=== PATIENT | male | born 1930 | race Caucasian/White ===

== ENCOUNTER 2016-09-27 08:45 | Emergency (ER) | payer MEDICARE, OTHER ==
[~2016-09-27] VITALS: Ht 182.9 cm; Wt 93.2 kg
[2016-09-27] VITALS (8 sets, daily range): BP systolic 113–185; BP diastolic 65–87; PULSE 70–105; RESP 12–20; O2SAT 94–100
[~2016-09-27 08:45] MED LIST: ASPI-973 PO; Acetaminophen PO; CRES20T PO; DILT120T10 PO; EZET10TA PO; LEVO175T5 PO; LISI40TA PO; LOV100 SUBQ; METO100T3 PO; OXYB10TA PO; PHEN-777 PO; SOTA160T PO; UBID100C25 PO; WARF2.5T82 PO
--- NOTE | 2016-09-27 08:46 | ED.REPORT ---
HPI-Trauma Minor / Fall Date of Service Sep 27, 2016 ED Provider: The patient is an 86 year old male with history of tachybradycardia syndrome s/ p pacemaker, atrial fibrillation on Coumadin, coronary artery disease s/p CABG, diabetes mellitus, hypertension, hyperlipidemia, TIA, and hypothyroidism, who presents to the emergency department by EMS for weakness. The patient got up in the middle of the night to use the restroom but his legs became weak and her fell to the ground. He fell backwards hitting his buttocks, back, and head on a door frame. He did not lose consciousness. The fall occurred last night around midnight and he remained on the floor until 0400 due to lower extremity weakness. He was able to get up and move himself to a chair around 0400 and he remained in the chair until 0800. The patient reports he pulled the emergency cord at his residence but no one came until hours later. He complains of right knee pain and generalized weakness. He denies lightheadedness, dizziness, nausea , vomiting, abdominal pain, neck pain or back pain. He has not taken his morning medication. Nursing Notes Stated Complaint: GLF Nursing Notes Reviewed: Yes Allergies: Coded Allergies: amiodarone (Verified Allergy, Severe, 03/20/16) glimepiride (Verified Allergy, Intermediate, itching, 03/20/16) iodine (Verified Allergy, Intermediate, itching, 03/20/16) Shellfish (Verified Allergy, Mild, SHELLFISH: ITCHING, 03/20/16) gabapentin (Verified Allergy, Unknown, BLURRED VISION, 03/20/16) codeine (Verified Adverse Reaction, Intermediate, 03/20/16) Replaces CODEINE PHOSP Uncoded Allergies: SKIN AND MUCOUS MEMBRANE AGENTS (Allergy, Unknown, 04/10/04) CARDIAC DRUGS (Adverse Reaction, Unknown, 04/10/04) Scheduled Aspirin (Aspirin) 81 Mg Tablet 81 MG PO HS Diltiazem (Cardizem) 120 Mg Tablet 120 MG PO BID Enoxaparin (Lovenox) 100 Mg/Ml Syringe 90 MG SUBQ Q12H Ezetimibe (Zetia) 10 Mg Tablet 10 MG PO DAILY Levothyroxine (Levothyroxine) 175 Mcg Tablet 175 MCG PO DAILY Lisinopril (Lisinopril) 40 Mg Tablet 40 MG PO BID Metoprolol Tartrate (Metoprolol Tartrate) 100 Mg Tablet 100 MG PO BID Oxybutynin Chloride ER (Oxybutynin Chloride ER) 10 Mg Tab.er.24 10 MG PO DAILY Rosuvastatin Calcium (Crestor) 20 Mg Tablet 10 MG PO HS Sotalol HCl (Sotalol) 160 Mg Tablet 160 MG PO BID Ubidecarenone (Co Q-10) 100 Mg Capsule 100 MG PO DAILY Warfarin Sodium (Warfarin Sodium) 2.5 Mg Tablet 2.5 MG PO , , Sat, Warfarin Sodium (Warfarin Sodium) 2.5 Mg Tablet 3.75 MG PO ,, Scheduled PRN ([Acetaminophen]) 325 MG TABLET 975 MG PO Q6H PRN PRN For Pain Phenazopyridine (Phenazopyridine) 200 Mg Tablet 200 MG PO DAILY PRN PRN urine urgency General Time Seen by MD: 08:45 Chief Complaint Fall Hx Obtained From: Patient, EMS Arrived By: Ambulance Onset Occurred: 5 - 8 hours ago Symptom Duration: Since onset Location: Knee right Quality: Painful Severity: Current: Moderate Severity: Maximum: Moderate Recent Healthcare: No recent doctor visit, No recent hospitalization Similar Sx Previous: No Past Medical History Past Medical History Tachy-lurdes syndrome Peptic ulcer TIA GERD Hypothyroidism BPH with obstruction CAD Reports: Diabetes mellitus, Hyperlipidemia, Hypertension Reports: Atrial fibrillation Past Surgical History Left total hip arthroplasty. Right knee replacement Reports: CABG Reports: Pacemaker insertion Smoking History Former Smoker Social History lives at [place] Other Social History: Local resident Ambulatory Status Independent Review of Systems Constitutional: Reports: Weakness - generalized Musculoskeletal: Reports: Joint pain, Denies: Back pain, Neck pain Neurologic: Reports: Weakness, Denies: Change LOC, Dizziness, Lightheaded, Syncope Complete sys rev & neg: except as marked. GI: Denies: Nausea, Vomiting Physical Exam Initial Vital Signs Vital Signs (First) Date Time Temp Pulse Resp B/P Pulse Ox O2 Delivery O2 Flow Rate FiO2 09/27/16 08:51 36.6 105 20 185/83 100 Room Air Initial VS: Reviewed Head / Eyes: Atraumatic, Normocephalic, PERRL ENT: Mucous membranes moist, Conjunctiva normal, No scleral icterus Respiratory: Breath sounds normal, Clear to auscultation, No respiratory distress Cardiovascular: Regular rate & rhythm, Heart sounds normal, Intact distal pulses Abdomen / GI: Soft, Non-tender, No guarding, No rebound, No distention Lymphatic: No lymphadenopathy Extremities: Vascular intact, Neuro intact Skin: Warm, Dry, No cyanosis Neurologic: Alert, Oriented, Nonfocal Psychiatric: Mood/affect normal, Behavior normal, Normal thought content General/Constitutional: Awake, Alert, No acute distress, Cooperative Neck: No swelling, Non-tender, No midline vertebral tend Lower Extremity / Pelvis / MS: Full range of motion, Neurologic intact, Vascular intact Abrasion on anterior right knee with full range of motion. Interpretation & Diagnostics Lab Results Interpretation Result Diagram: 09/27/16 0913 09/27/16 0913 Test 09/27/16 09:01 09/27/16 09:05 09/27/16 09:13 Urine Color Yellow (YELLOW) Urine Appearance Clear (CLEAR,HAZY) Urine pH 6.5 (5.0-8.0) Urine Specific [place] 1.010 (1.003-1.035) Urine Protein 30mg/dL (NEG,TRACE) Urine Glucose (UA) Negativemg/dL (NEGATIVE) Urine Ketones Negativemg/dL (NEGATIVE) Urine Occult Blood Trace (NEGATIVE) Urine Nitrite Negative (NEGATIVE) Urine Bilirubin Negative (NEGATIVE) Urine Urobilinogen Normalmg/dL (NORMAL) Urine Leukocyte Esterase Negative (NEGATIVE) Urine RBC 0-2/hpf (0-2) Urine WBC 0-5/hpf (0-5) Urine Epithelial Cells Occasional/hpf (NONE-MOD) Urine Crystals None seen (NONE SEEN) Urine Bacteria None/hpf (NONE-FEW) Urine Hyaline Casts None/lpf (NONE) Urine Granular Casts None seen (NONE SEEN) Urine Waxy Casts None seen (NONE SEEN) Urine Red Blood Cell Casts None seen (NONE SEEN) Urine White Blood Cell Casts None seen (NONE SEEN) Urine Mucus None seen (None Seen) Urine Trichomonas None seen (NONE SEEN) Urine Yeast None (NONE SEEN) Urinalysis Comment None Urine Culture Reflexed Not indicated Hold Urine Received (Received) White Blood Count 10.2th/mm3 (3.8-10.1) Red Blood Count 4.91mil/mm3 (4.40-5.80) Hemoglobin 14.9g/dL (13.8-17.2) Hematocrit 44.2% (41.0-50.0) Mean Corpuscular Volume 90.0fL (81-100) Mean Corpuscular Hemoglobin 30.3pg (27.0-35.0) Mean Corpuscular Hemoglobin Concent 33.7% (32.0-37.0) Red Cell Distribution Width 14.3% (12.3-15.4) Platelet Count 156bil/L (150-400) Neutrophils (%) (Auto) 63.0% (40-74) Lymphocytes (%) (Auto) 24.8% (14-46) Monocytes (%) (Auto) 10.1% (4-12) Eosinophils (%) (Auto) 1.6% (0-5) Basophils (%) (Auto) 0.4% (0-3) Hold Purple Top Tube Received (Received) Prothrombin Time 25.9sec (8.1-12.5) Prothromb Time International Ratio 2.38ratio Hold Blue Top Tube Received (Received) Sodium Level 141mEq/L (134-144) Potassium Level 4.5mEq/L (3.5-5.2) Chloride Level 103mEq/L (97-108) Carbon Dioxide Level 22mmol/L (18-29) Blood Urea Nitrogen 20mg/dL (8-27) Creatinine 0.88mg/dL (0.76-1.27) Estimat Glomerular Filtration Rate 87mL/min (>59) Glucose Level 127mg/dL (60-99) Calcium Level 10.0mg/dL (8.5-10.1) Total Bilirubin 0.6mg/dL (0.0-1.2) Aspartate Amino Transf (AST/SGOT) 20U/L (0-50) Alanine Aminotransferase (ALT/SGPT) 15U/L (0-44) Alkaline Phosphatase 67U/L (25-160) Total Protein 7.4g/dL (6.4-8.4) Albumin 4.5g/dL (3.4-5.0) Hold Red Top Tube Received (Received) Hold [place] Top Tube Received (Received) ECG Interpretation ECG Interpretation: Paced rhtyhm with a rate of 79 Time: 08:52 Interpreted by: ED physician CT Head Interpretation IMPRESSION: No acute intracranial process is seen. No displaced calvarial fractures are seen. No acute intracranial hemorrhage is seen. Dictated by: Zain Best M.D. on 09/27/2016 at 8:18 Study: Head CT no contrast Interpretation / Wet Read by: Interpret - Radiologist Re-Eval/Medical Decision Source of Hx: Old records, EMS Re-Evaluation/Progress #1: Time of Eval: 11:03 Re-Evaluation/Progress Note: Rechecked the patient. Discussed results, diagnosis, and plan for discharge. The patient understands and agrees with plan. Will road test prior to discharge. Re-Evaluation/Progress #2: Time of Eval: 11:16 Re-Evaluation/Progress Note: The patient had positive orthostatics and felt dizzy with standing. Will administer IVF and re-evaluate. Re-Evaluation/Progress #3: Time of Eval: 12:38 Re-Evaluation/Progress Note: The patient passed his road test. He is feeling better. Will discharge home. Re-Evaluation/Progress #4: Time of Eval: 13:17 Re-Evaluation/Progress Note: Discussed plan for discharge. All questions were addressed. Counseled Regarding: Diagnosis, Lab results, Need for follow-up, When/why to return to ED Discharge & Departure Impression: Primary Impression: Fall from ground level Additional Impressions: Weakness Orthostatic hypotension Disposition: Home Discharge Condition All VS Reviewed: Yes Condition: Stable Patient Instructions: Fall Prevention for Older Adults (GEN) Additional Instructions: Thank you for entrusting us with your care today. Your workup today included labs, head CT, and a EKG. Your workup today is reassuring. Make sure to rest and drink plenty of fluids. Drink enough so you have to go to the restroom every 3-4 hours and the urine comes out pretty clear. If you are drinking this much fluid and still having symptoms you may need further evaluation. You should call your primary doctor today to schedule a followup appointment in the next 1-2 weeks. Seek care for any new or concerning symptoms. Referrals: Quinton Ramos MD (PCP) Kavitaibjanee Attestation Portions of this note were transcribed by Audrey Alvarez. I, Dr. Edwards personally performed the history, physical exam and medical decision-making; I reviewed and confirmed the accuracy of the information in the transcribed note. Signed by: Chucho Montejo, 09/27/2016 at 1325. copies to: Quinton Ramos MD, Kirk H MD Sep 27, 2016 08:46 Antonio,Audrey Fry Sep 27, 2016 08:53
--- NOTE | 2016-09-27 09:21 | DRSVH ---
PROCEDURE: CT BRAIN WITHOUT CONTRAST ([id number]) INDICATIONS: HEAD INJURY TECHNIQUE: Noncontrast 4.5 mm thick angled axial sections acquired from the foramen magnum to the vertex, with c oronal reformats. COMPARISON: [facility], CT, CT BRAIN WO CON, 09/26/2015, 11:52. FINDINGS: Image quality: Excellent. CSF spaces: Basal cisterns are patent. No extra-axial fluid collections. The ventricles are symmet vivi in size and shape. Brain: No intracranial bleeds or masses. There is cerebral volume loss for age, with resultant vent ricular and sulcal prominence. There are periventricular and deep white matter chronic small vessel ischemic changes. There is intracranial internal carotid artery atherosclerosis. Skull and face: Calvarium and visualized facial bones appear intact, without suspicious lesions. Sinuses: Visualized sinuses and mastoids are clear. IMPRESSION: No acute intracranial process is seen. No displaced calvarial fractures are seen. No acute intracranial hemorrhage is seen. Dictated by: Zain Best M.D. on 09/27/2016 at 8:18 Approved by: Zain Best M.D. on 09/27/2016 at 8:19
[2016-09-27 09:55] LABS: BASOPHILS % (AUTO) 0.4 % (0-3); EOSINOPHILS % (AUTO) 1.6 % (0-5); MONOCYTES % (AUTO) 10.1 % (4-12); Mean Corpuscular Hemoglobin 30.3 pg (27.0-35.0); Platelet Count 156 bil/L (150-400)
[2016-09-27 09:59] LABS: INR 2.38 ratio
[2016-09-27 10:18] LABS: APPEARANCE,URINE CLEAR (CLEAR,HAZY); COLOR,URINE YELLOW (YELLOW); OCCULT BLOOD,URINE TRACE (NEGATIVE); PH,URINE 6.5 (5.0-8.0); UROBILINOGEN,URINE NORMAL (NORMAL)
[2016-09-27] MEDS ORDERED: 0.9% Sodium Chloride 1,000 ML IV ONE (11:30)
== END 2016-09-27 13:38 | disposition home or self-care (01) ==
LOC: SED 08:45
DX: S80.211A Abrasion, right knee, initial encounter (principal); S09.90XA Unspecified injury of head, initial encounter; W18.39XA Other fall on same level, initial encounter; Y93.89 Activity, other specified; Y92.89 Other specified places as the place of occurrence of the external cause; Y99.8 Other external cause status; R53.1 Weakness; I95.1 Orthostatic hypotension; I11.9 Hypertensive heart disease without heart failure; E11.59 Type 2 diabetes mellitus with other circulatory complications; I25.10 Atherosclerotic heart disease of native coronary artery without angina pectoris; I48.91 Unspecified atrial fibrillation; K21.9 Gastro-esophageal reflux disease without esophagitis; E03.9 Hypothyroidism, unspecified; E78.5 Hyperlipidemia, unspecified; Z86.73 Personal history of transient ischemic attack (TIA), and cerebral infarction without residual deficits; Z95.0 Presence of cardiac pacemaker; Z95.1 Presence of aortocoronary bypass graft; Z96.651 Presence of right artificial knee joint; Z79.82 Long term (current) use of aspirin; Z79.01 Long term (current) use of anticoagulants; Z87.891 Personal history of nicotine dependence; Z88.5 Allergy status to narcotic agent; Z88.8 Allergy status to other drugs, medicaments and biological substances; Z91.013 Allergy to seafood
CPT/HCPCS: 70450; 80053; 81000; 85025; 85610; 93005; 96360; 99285; J7030

== ENCOUNTER 2016-10-13 06:22 | Inpatient (IN) | payer MEDICARE, OTHER ==
[~2016-10-13] VITALS: Ht 182.9 cm; Wt 95.0 kg
--- NOTE | 2016-10-13 06:31 | ED.REPORT ---
HPI-Trauma Minor / Fall Date of Service Oct 13, 2016 ED Provider: German Richardson MD Patient is an 86 year old male who was seen in the ED via EMS due to a fall on , who presents to the ED via EMS due to another fall. Associated symptoms include right hip pain and right leg pain. The patient denies neck pain, back pain, abdominal pain, chest pain, losing consciousness, or hitting his head. He reports that he tripped while walking and was not able to get up after his fall. Patient is currently on Warfarin. Nursing Notes Stated Complaint: RIGHT HIP PAIN/GLF Chief Complaint: Multiple Trauma/Fall Nursing Notes Reviewed: Yes Allergies: Coded Allergies: amiodarone (Verified Allergy, Severe, Hallucinations, 10/13/16) glimepiride (Verified Allergy, Intermediate, itching, 10/13/16) iodine (Verified Allergy, Intermediate, itching, 10/13/16) Shellfish (Verified Allergy, Mild, SHELLFISH: ITCHING, 10/13/16) gabapentin (Verified Allergy, Unknown, BLURRED VISION, 03/20/16) codeine (Verified Adverse Reaction, Intermediate, 03/20/16) Replaces CODEINE PHOSP Uncoded Allergies: SKIN AND MUCOUS MEMBRANE AGENTS (Allergy, Unknown, 04/10/04) CARDIAC DRUGS (Adverse Reaction, Unknown, 04/10/04) Scheduled Aspirin (Aspirin) 81 Mg Tablet 81 MG PO HS Diltiazem (Cardizem) 120 Mg Tablet 120 MG PO BID Ezetimibe (Zetia) 10 Mg Tablet 10 MG PO DAILY Levothyroxine (Levothyroxine) 175 Mcg Tablet 175 MCG PO DAILY Lisinopril (Lisinopril) 40 Mg Tablet 40 MG PO BID Metoprolol Tartrate (Metoprolol Tartrate) 100 Mg Tablet 100 MG PO BID Oxybutynin Chloride ER (Oxybutynin Chloride ER) 10 Mg Tab.er.24 10 MG PO DAILY Rosuvastatin Calcium (Crestor) 20 Mg Tablet 10 MG PO HS Sotalol HCl (Sotalol) 160 Mg Tablet 160 MG PO BID Ubidecarenone (Co Q-10) 100 Mg Capsule 100 MG PO DAILY Warfarin Sodium (Warfarin Sodium) 2.5 Mg Tablet 2.5 MG PO , , Sat, Warfarin Sodium (Warfarin Sodium) 2.5 Mg Tablet 3.75 MG PO Scheduled PRN Acetaminophen (Acetaminophen) 500 Mg Tablet 500 MG PO Q6H PRN PRN For Pain General Time Seen by MD: 06:31 Chief Complaint Fall Hx Obtained From: Patient, EMS Arrived By: Ambulance Onset Occurred: Just prior to arrival Symptom Duration: Since onset Caused by: Fall on ground Location: Hip right Recent Healthcare: Recent doctor visit Similar Sx Previous: Yes Past Medical History Past Medical History ground level fall 09/27/16 Tachy-lurdes syndrome Peptic ulcer CABGx2 TIA GERD Hypothyroidism BPH with obstruction CAD Reports: Diabetes mellitus, Hyperlipidemia, Hypertension Reports: Atrial fibrillation Past Surgical History Left total hip arthroplasty. Right knee replacement Reports: CABG Reports: Pacemaker insertion Smoking History Former Smoker Social History lives at [place] Other Social History: Local resident Ambulatory Status Independent Review of Systems Respiratory: Denies: Non-productive cough, Shortness of breath Musculoskeletal: Reports: Extremity pain (right hip radiates to leg), Denies: Back pain, Neck pain Neurologic: Denies: Change LOC Complete sys rev & neg: except as marked. Cardiovascular: Denies: Chest pain GI: Denies: Abdominal pain Physical Exam Initial Vital Signs Vital Signs (First) Date Time Temp Pulse Resp B/P Pulse Ox O2 Delivery O2 Flow Rate FiO2 10/13/16 06:43 36.6 60 20 223/94 94 Room Air Initial VS: Reviewed General/Constitutional: Awake, Alert, No acute distress Neck: Atraumatic, Supple, Full range of motion Head / Eyes: Atraumatic, Normocephalic, PERRL, EOMI ENT: Atraumatic, Airway patent, Mucous membranes moist Respiratory / Chest: Atraumatic, Breath sounds NL, Breath sounds = bilat, No respiratory distress Abdomen: Atraumatic, Soft, Non-tender, No guarding, No rebound midline sternal scar Upper Extremity / MS: Atraumatic, Full range of motion Lower Extremity / Pelvis / MS: Neurologic intact, Vascular intact Skin: Atraumatic, Color NL, No rash, Warm, Dry Neurologic: Oriented X3, Speech NL, No motor deficits, No sensory deficits Psychiatric: Affect NL, Mood NL Interpretation & Diagnostics Lab Results Interpretation Result Diagram: 10/13/16 0745 10/13/16 0745 Test 10/13/16 06:45 10/13/16 07:45 Urine Color Straw (YELLOW) Urine Appearance Clear (CLEAR,HAZY) Urine pH 7.0 (5.0-8.0) Urine Specific [place] 1.020 (1.003-1.035) Urine Protein Tracemg/dL (NEG,TRACE) Urine Glucose (UA) Negativemg/dL (NEGATIVE) Urine Ketones Negativemg/dL (NEGATIVE) Urine Occult Blood Trace (NEGATIVE) Urine Nitrite Negative (NEGATIVE) Urine Bilirubin Negative (NEGATIVE) Urine Urobilinogen Normalmg/dL (NORMAL) Urine Leukocyte Esterase Negative (NEGATIVE) Urine RBC 0-2/hpf (0-2) Urine WBC 0-5/hpf (0-5) Urine Epithelial Cells None/hpf (NONE-MOD) Urine Crystals None seen (NONE SEEN) Urine Bacteria None/hpf (NONE-FEW) Urine Hyaline Casts None/lpf (NONE) Urine Granular Casts None seen (NONE SEEN) Urine Waxy Casts None seen (NONE SEEN) Urine Red Blood Cell Casts None seen (NONE SEEN) Urine White Blood Cell Casts None seen (NONE SEEN) Urine Mucus None seen (None Seen) Urine Trichomonas None seen (NONE SEEN) Urine Yeast None (NONE SEEN) Urinalysis Comment None White Blood Count 11.8th/mm3 (3.8-10.1) Red Blood Count 4.31mil/mm3 (4.40-5.80) Hemoglobin 13.0g/dL (13.8-17.2) Hematocrit 39.7% (41.0-50.0) Mean Corpuscular Volume 92.1fL (81-100) Mean Corpuscular Hemoglobin 30.2pg (27.0-35.0) Mean Corpuscular Hemoglobin Concent 32.7% (32.0-37.0) Red Cell Distribution Width 14.1% (12.3-15.4) Platelet Count 157bil/L (150-400) Neutrophils (%) (Auto) 74.4% (40-74) Lymphocytes (%) (Auto) 14.2% (14-46) Monocytes (%) (Auto) 8.0% (4-12) Eosinophils (%) (Auto) 2.8% (0-5) Basophils (%) (Auto) 0.4% (0-3) Prothrombin Time 26.1sec (8.1-12.5) Prothromb Time International Ratio 2.40ratio Activated Partial Thromboplast Time 31.4sec (22.8-33.0) Sodium Level 142mEq/L (134-144) Potassium Level 4.1mEq/L (3.5-5.2) Chloride Level 106mEq/L (97-108) Carbon Dioxide Level 22mmol/L (18-29) Blood Urea Nitrogen 23mg/dL (8-27) Creatinine 0.79mg/dL (0.76-1.27) Estimat Glomerular Filtration Rate 98mL/min (>59) Glucose Level 130mg/dL (60-99) Calcium Level 9.1mg/dL (8.5-10.1) Total Bilirubin 0.4mg/dL (0.0-1.2) Aspartate Amino Transf (AST/SGOT) 17U/L (0-50) Alanine Aminotransferase (ALT/SGPT) 12U/L (0-44) Alkaline Phosphatase 56U/L (25-160) Total Protein 6.6g/dL (6.4-8.4) Albumin 4.2g/dL (3.4-5.0) Hold [place] Top Tube Received (Received) ECG Interpretation ECG Interpretation: Atrial- paced rhythm ST depression in V3 unchanged from 09/27/16 Time: 06:46 Interpreted by: ED physician Normal ECG Interpretation: Normal rate (60) X-Ray Chest Interpretation Chest Xray Interpretation: diffuse interstitial markings View: Portable, 1 view Interpretation / Wet Read by: Wet read ED physician X-Ray Interpretation Xray Interpretation: intertrochanteric fracture of the right hip X-Ray Ordered: Pelvis Interpretation / Wet Read by: Wet read ED physician Re-Eval/Medical Decision Med Decision/Clinical Course 86-year-old male history of CAD, CABG 2, pacemaker, atrial fibrillation on warfarin presenting status post mechanical ground-level fall onto her right hip. Only complaint is right hip pain. Denies any head trauma or loss of consciousness. Denies any pain outside of his right hip. His neurological exam is normal. X-ray confirms right hip intertrochanteric comminuted fracture. Right lower extremity is neurovascularly intact. Orthopedics recommends admission with correcting INR and cardiology consult prior to surgery. Initial hemoglobin is 13 repeat hemoglobin is ordered. His INR is elevated. One dose of vitamin K given. Admitted to hospitalist. Source of Hx: Old records, EMS Re-Evaluation/Progress #1: Time of Eval: 07:15 Re-Evaluation/Progress Note: Rechecked patient. Discussed all results and plan for admit. The patient understands and agrees to admittance. All questions were addressed. Re-Evaluation/Progress #2: Time of Eval: 08:30 Re-Evaluation/Progress Note: Rechecked patient who reports that his pain has improved. Re-Evaluation/Progress #3: Time of Eval: 09:55 Re-Evaluation/Progress Note: Discussed DNR status. Patient would like to be resuscitated if necessary. Consultation #1: Referral / Consult Name: Tanvir Nicholson MD Consulted With: Surgeon Call Returned at: 07:23 Broadcast Transmitter Operator: Will see patient, Agrees with eval, Agrees with plan Note: Consult with Dr. Nicholson, orthopedic surgeon who recommends the patient be admitted and will accept into surgery after Warfarin correcion. Consultation #2: Referral / Consult Name: Ladonna Sánchez DO Consulted With: Hospitalist Call Returned at: 09:17 Broadcast Transmitter Operator: Agrees with eval, Agrees with plan, Accepts admit Counseled Regarding: Diagnosis, Lab results, Need for admission Discharge & Departure Impression: Primary Impression: Intertrochanteric fracture of right hip Encounter type: initial encounter Fracture type: closed Qualified Code: S72.141A - Displaced intertrochanteric fracture of right femur, initial encounter for closed fracture Disposition: ADMITTED TO HOSPITAL Discharge Condition All VS Reviewed: Yes Condition: Stable Referrals: Quinton Ramos MD (PCP) Kavitaibjanee Attestation Portions of this note were transcribed by Cari Rosario. I, Dr. Richardson personally performed the history, physical exam and medical decision-making; I reviewed and confirmed the accuracy of the information in the transcribed note. Signed by: Chucho dAair, 10/13/16 and 0918. copies to: Quinton Ramos MD, Ben M MD Oct 13, 2016 06:31 Virginia Rosario Oct 13, 2016 06:39
[2016-10-13] MEDS ORDERED: Ondansetron 2 mg/mL 2 mL Inj IVPUSH PRN ×2 (06:40→09:20)
[2016-10-13 06:43] VITALS: BP 223/94; PULSE 60; RESP 20; O2SAT 94
[2016-10-13 06:53] VITALS: BP 190/80; PULSE 64; O2SAT 95
[2016-10-13] MEDS: HYDROmorphone 0.5 mg/0.5 mL iSecure Syringe IVPUSH PRN ×4 (07:16→11:31)
[2016-10-13 07:19] LABS: APPEARANCE,URINE CLEAR (CLEAR,HAZY); COLOR,URINE STRAW (YELLOW); OCCULT BLOOD,URINE TRACE (NEGATIVE); UROBILINOGEN,URINE NORMAL (NORMAL)
[2016-10-13 08:01] LABS: BASOPHILS % (AUTO) 0.4 % (0-3); EOSINOPHILS % (AUTO) 2.8 % (0-5); Mean Corpuscular Hemoglobin 30.2 pg (27.0-35.0); Mean Corpuscular Volume 92.1 fL (81-100); NEUTROPHILS % (AUTO) 74.4 % (40-74); Platelet Count 157 bil/L (150-400)
--- NOTE | 2016-10-13 08:23 | DRSVH ---
PROCEDURE: X-RAY CHEST ONE VIEW, PORTABLE ([id number]) INDICATIONS: trauma TECHNIQUE: One view of the chest was acquired. COMPARISON: [facility], CR, CHEST 1VW (PORTABLE), 05/24/2012, 4:46. [facility], CR, CHEST 2VW, 12/10/2011, 10:06. FINDINGS: Surgical changes and devices: Sternotomy wires, pacemaking device and dual chamber leads stable over time. Lungs and pleura: No pleural effusions or pneumothorax. Lungs are abnormal with a chronic mild inte rstitial prominence which may reflect a prior smoking history.. Mediastinum: Mediastinal contours appear normal. Heart size is at or just above the upper limits of normal but no acute CHF is suspected. Bones and chest wall: No suspicious bony lesions. Overlying soft tissues appear unremarkable. IMPRESSION: Stable postsurgical change and chronic interstitial prominence, no definite acute disease . Dictated by: Kavon Lira M.D. on 10/13/2016 at 8:21 Approved by: Kavon Lira M.D. on 10/13/2016 at 8:22
--- NOTE | 2016-10-13 08:25 | DRSVH ---
PROCEDURE: X-RAY PELVIS W/LAT HIP (RT) ([id number]) INDICATIONS: trauma TECHNIQUE: AP pelvis with lateral view(s) of the right hip(s). COMPARISON: [facility], CR, XR PELVIS W LATERAL HIP RT, 05/09/2016, 13:04. [facility], CR, XR PELVIS W LATERAL HIP RT, 04/11/2016, 11:08. FINDINGS: Bones: No dislocations. Pelvic ring appears intact. No suspicious bony lesions. There is a commin uted intertrochanteric right hip fracture and also a previously present anterior column right obturat or ring fracture superiorly in what appears to be a minimally displaced previously present right infe rior obturator ring fracture. Prior left hip arthroplasty. Soft tissues: The visualized bowel gas pattern is normal. No suspicious soft tissue calcifications. IMPRESSION: Prior left hip arthroplasty stable, prior obturator ring fractures on the right, new comm inuted intertrochanteric right hip fracture. Dictated by: Kavon Lira M.D. on 10/13/2016 at 8:22 Approved by: Kavon Lira M.D. on 10/13/2016 at 8:23
[2016-10-13 08:40] VITALS: BP 179/78; PULSE 69; RESP 17
[2016-10-13 08:41] LABS: INR 2.4 ratio
[2016-10-13] MEDS ORDERED: Phytonadione (Adult) 10 mg/1 mL Inj PO ONE (09:00)
[2016-10-13] MEDS ORDERED: Alum-Mag Hydrox-Simeth 30 mL Suspension PO PRN (09:20)
[2016-10-13] MEDS ORDERED: Lidocaine 2% 6mL Topical Jelly ONE (09:55)
[2016-10-13] MEDS ORDERED: ACET-171 PO (10:13)
[2016-10-13 11:13] VITALS: BP 186/83; PULSE 63; RESP 20; O2SAT 97
--- NOTE | 2016-10-13 11:17 | DRSVH ---
PROCEDURE: X-RAY RIGHT FEMUR, TWO VIEWS ([id number]) INDICATIONS: trauma TECHNIQUE: 3 views of the femur were acquired. COMPARISON: None. FINDINGS: Bones: Moderately comminuted intertrochanteric right hip fracture but no dislocations. No suspicious bony lesions. Right total knee arthroplasty is partially visualized in the portion included on this study is not disrupted. Soft tissues: No suspicious soft tissue calcifications or masses. IMPRESSION: The comminuted intertrochanteric right hip fracture is in near anatomic alignment of the lesser trochanter is fractured at its base and displaced cephalad to lie medial to the femoral neck. Prior right total knee arthroplasty partially visualized by this study. That device does not appear disrupted. Dictated by: Kavon Lira M.D. on 10/13/2016 at 11:14 Approved by: Kavon Lira M.D. on 10/13/2016 at 11:15
--- NOTE | 2016-10-13 11:25 | NUR ---
Admit to [facility] Pt admitted to [facility] from the ED at 1100 hrs. Pt alert and oriented x 3. PIV patent and asymptomatic. Pt's personal possessions placed in closet. Pt states hip pain is 04/02. Administered 975 mg PO Tylenol for pain. Awaiting hospitalist evaluation for additional pain medication. Care continues. Addendum: 10/13/16 at 1135 by JAMEY FROST RN Noted laceration and rectangular abrasion and bruise on pt's mid left back. Applied tegaderm over the laceration.
[2016-10-13 11:37] LABS: APPEARANCE,URINE HAZY (CLEAR,HAZY); COLOR,URINE STRAW (YELLOW); OCCULT BLOOD,URINE TRACE (NEGATIVE); UROBILINOGEN,URINE NORMAL (NORMAL)
[2016-10-13] MEDS ORDERED: SOTALOL HCL 160 MG PO SCH (11:55)
[2016-10-13] MEDS ORDERED: HYDROmorphone 0.5 mg/0.5 mL iSecure Syringe IVPUSH PRN ×2 (11:55→20:55)
[2016-10-13] MEDS ORDERED: Non-Formulary Medication (Levothyroxine 175 MCG) PO SCH (11:55)
[2016-10-13] MEDS: Diltiazem CD 120 mg ER24 Capsule PO SCH ×2 (14:14→21:23)
[2016-10-13 15:33] VITALS: BP 127/67; PULSE 60; RESP 16; O2SAT 97
--- NOTE | 2016-10-13 16:00 | PCM.CHPCAR ---
Consult Subjective Date of service Oct 13, 2016 Date of admit Oct 13, 2016 at 09:37 Provider Requesting Consult Primary Care Physician Primary Care Physician: Quinton Ramos MD Chief Complaint Right hip fracture History of Present Illness Mr. Corbett is a very pleasant 86-year-old male with history of coronary disease a status post redo CABG and mild aortic regurgitation as well as history of aortic stenosis with mild in severity. He has history of PAD with lower extremity duplex suggestive occlusion of the anterior tibial artery proximally but with good retrograde flow from the posterior tibial artery, suggesting that his leg pain is not vascular claudication. The patient also has history of paroxysmal atrial fibrillation for which he has taken metoprolol titrate 100 mg twice a day, Cardizem 120 mg twice a day, and sotalol 160 mg twice a day in addition to his warfarin. He has history of sick sinus syndrome and currently has a dual-chamber permanent pacemaker. Patient also has history of right carotid endarterectomy with bovine pericardial patch angioplasty. Patient was echocardiogram was on July 2016 which showed normal ejection fraction with moderate to synchronous contraction due to paced rhythm but no focal wall motion abnormalities. Evidence for [id number] concentric LVH and grade 2 diastolic dysfunction. Patient has borderline pulmonary hypertension with an estimated right ventricular systolic pressure of 31 mmHg. There is moderate aortic valve sclerosis with probable mild aortic stenosis with a peak velocity of 2.3 m/s and mild aortic regurgitation which both have not significantly changed in comparison to the previous echocardiogram in November 2010. During his last clinic visit the patient was generally feeling well with complaints of living at [facility]. The patient apparently was using a stationary bicycle for 15 minutes 6 days a week and walks struck the halls with no clear change in his exercise capacity. Unfortunately early this morning the patient got up to use a restroom and had a mechanical fall and sustained a intertrochanteric fracture of right hip. The patient was admitted this morning and the orthopedic surgeon has asked for cardiology consult because of his cardiac history. The patient has denied any symptoms prior to the event such as chest discomfort, shortness of breath, or near syncope/syncope. His blood pressure was apparently quite high on admission but he apparently did not take his morning medications. After 1 hour taking his usual blood pressure medication his blood pressures come down quite nicely. His pain has been better under control with an addition of morphine. Review of Systems Review of Systems CONSTITUTIONAL: Negative for fever, weight loss or weight gain. HEENT: negative Ears: Positive for hearing. Nose: Negative for nasal congestion. Negative for rhinorrhea or postnasal drip. Mouth: dry . Throat: Negative for masses or hoarseness. CARDIOVASCULAR: Negative for chest pain or palpitations, near syncope, syncope, PND, or orthopnea. RESPIRATORY: Negative for shortness of breath, hemoptysis, COPD, cough. GASTROINTESTINAL: Negative for nausea, vomiting, diarrhea or heartburn. GENITOURINARY: Negative for dysuria. MUSCULOSKELETAL: Positive for osteoarthritis. SKIN: Negative for rashes. NEUROLOGIC: Negative for headaches, blurry vision, CVA, mental status changes. PSYCHIATRIC: Negative for depression. Negative for daytime sleepiness or insomnia. ENDOCRINE: Negative for diabetes or thyroid abnormalities. HEMATOLOGIC: Negative for anemia or blood dyscrasias. PMH Past Medical History CAD Paroxysmal atrial fibrillation Hyperlipidemia Hypertension Aortic regurgitation Aortic stenosis Tachycardia bradycardia syndrome Fatigue Dyspnea Hypertensive heart disease, benign without CHF Chronic dizziness TIA Carotid artery disease Long-term use of anticoagulants Diabetes mellitus Hypothyroidism Macular degeneration Pacemaker, dual-chamber [place] Coronary artery disease with occluded vein grafts CABG 1983, redo April 2000 with LIPSCOMB to LAD, SVG to OM, SVG to PDA Status post carotid endarterectomy bilaterally 2005 History of non-ST elevation myocardial infraction February 2006 History of claudication Bedside Blood Glucose: 120 Scheduled Aspirin (Aspirin) 81 Mg Tablet 81 MG PO HS (Reported) Diltiazem (Cardizem) 120 Mg Tablet 120 MG PO BID (Reported) Ezetimibe (Zetia) 10 Mg Tablet 10 MG PO DAILY (Reported) Levothyroxine (Levothyroxine) 175 Mcg Tablet 175 MCG PO DAILY (Reported) Lisinopril (Lisinopril) 40 Mg Tablet 40 MG PO BID (Reported) Metoprolol Tartrate (Metoprolol Tartrate) 100 Mg Tablet 100 MG PO BID (Reported ) Oxybutynin Chloride ER (Oxybutynin Chloride ER) 10 Mg Tab.er.24 10 MG PO DAILY ( Reported) Rosuvastatin Calcium (Crestor) 20 Mg Tablet 10 MG PO HS (Reported) Sotalol HCl (Sotalol) 160 Mg Tablet 160 MG PO BID (Reported) Ubidecarenone (Co Q-10) 100 Mg Capsule 100 MG PO DAILY (Reported) Warfarin Sodium (Warfarin Sodium) 2.5 Mg Tablet 2.5 MG PO , , Sat, ( Reported) Warfarin Sodium (Warfarin Sodium) 2.5 Mg Tablet 3.75 MG PO ,, (Reported) Scheduled PRN Acetaminophen (Acetaminophen) 500 Mg Tablet 500 MG PO Q6H PRN PRN For Pain ( Reported) Discontinued Medications ([Acetaminophen]) 325 MG TABLET 975 MG PO Q6H PRN PRN For Pain Enoxaparin (Lovenox) 100 Mg/Ml Syringe 90 MG SUBQ Q12H Phenazopyridine (Phenazopyridine) 200 Mg Tablet 200 MG PO DAILY PRN PRN urine urgency (Reported) Current Inpatient Medications Current Medications Ondansetron HCl 4 mg Q15M PRN IVPUSH Last administered on 10/13/16 07:16; Admin Dose 4 MG; Start 10/13/16 at 06:40 Hydromorphone HCl 0.5 mg Q15MIN PRN IVPUSH Last administered on 10/13/16 11:31 ; Admin Dose 0.5 MG; Start 10/13/16 at 06:40; Stop 10/13/16 at 11:49; Status DC Al Hydrox/Mg Hydrox/Simethicone 30 ml Q6 PRN PO; Start 10/13/16 at 09:20 Ondansetron HCl Dose range: 4 mg to 8 mg Q4H PRN IVPUSH; Start 10/13/16 at 09: 20 Acetaminophen 975 mg Q6H PRN PO Last administered on 10/13/16 11:19; Admin Dose 975 MG; Start 10/13/16 at 09:20 Senna 17.2 mg BID PRN PO; Start 10/13/16 at 11:50 Polyethylene Glycol 17 gm DAILY PRN PO; Start 10/13/16 at 11:50 EZETIMIBE 10 mg DAILY PO; Start 10/13/16 at 11:55 Lisinopril 40 mg BID PO; Start 10/13/16 at 11:55 Metoprolol Tartrate 100 mg BID PO Last administered on 10/13/16 14:14; Admin Dose 100 MG; Start 10/13/16 at 11:55 Diltiazem HCl 120 mg BID PO Last administered on 10/13/16 14:14; Admin Dose 120 MG; Start 10/13/16 at 11:55 Non-Formulary Medication 175 mcg DAILY PO; Start 10/13/16 at 11:55; Status UNV Tolterodine Tartrate 2 mg MORNING PO; Start 10/14/16 at 08:30 Rosuvastatin Calcium 10 mg HS PO; Start 10/13/16 at 21:00 Non-Formulary Medication 160 mg BID PO; Start 10/13/16 at 11:55; Stop 10/13/16 at 11:55; Status DC Non-Formulary Medication 100 mg DAILY PO; Start 10/13/16 at 11:55; Status UNV Hydromorphone HCl 0.5 mg Q3H PRN IVPUSH; Start 10/13/16 at 11:55 Morphine Sulfate 2 mg Q3H PRN IVPUSH Last administered on 10/13/16t 14:14; Admin Dose 2 MG; Start 10/13/16 at 12:00 Levothyroxine Sodium/ Levothyroxine Sodium 175 mcg DAILYAC PO Last administered on 10/13/16 14:14; Admin Dose 175 MCG; Start 10/13/16 at 12:03 Allergies: Coded Allergies: amiodarone (Verified Allergy, Severe, Hallucinations, 10/13/16) glimepiride (Verified Allergy, Intermediate, itching, 10/13/16) iodine (Verified Allergy, Intermediate, itching, 10/13/16) Shellfish (Verified Allergy, Mild, SHELLFISH: ITCHING, 10/13/16) gabapentin (Verified Allergy, Unknown, BLURRED VISION, 03/20/16) codeine (Verified Adverse Reaction, Intermediate, 03/20/16) Replaces CODEINE PHOSP Uncoded Allergies: SKIN AND MUCOUS MEMBRANE AGENTS (Allergy, Unknown, 04/10/04) CARDIAC DRUGS (Adverse Reaction, Unknown, 04/10/04) Family History Family History Nonpertinent in this 86-year-old male Social History Hx Alcohol Use: Yes (occasional beer, rare)Hx Substance Use: NoHx Tobacco Use : No Smoking Status: Former Smoker Living Arrangement: Assisted Living Exam Vital Signs Vital Sign - Last Date Time Temp Pulse Resp B/P Pulse Ox O2 Delivery O2 Flow Rate FiO2 10/13/16 15:33 60 16 127/67 97 Room Air 10/13/16 11:13 36.6 2.00 General: Pleasant Cooperative Skin: Warm & dry to touch Head: Normocephalic Eye: EOMS intact No arcus or xanthelasma Neck: No JVD Carotid bruit present (right side) Ears, Nose & Throat: Ears no gross abnormalities Nose no gross abnormalities Chest: Clear auscultation w/o rales/wheeze Cardiac: Regular rhythm Normal S1 and S2 Systolic ejection murmur (3/6) Pulses: Both femoral pulses 2+ Distal pulses intact (except for right posterior tibialis 1+) Abdomen: Soft, non-distended, non-tender No bruits Extremities: Warm w/o deformities,erythema noted Neurological: Alert & oriented Psychological: Memory grossly intact Lab and Diagnostics Labs CBC Test 10/13/16 07:45 10/13/16 10:00 White Blood Count 11.8th/mm3 (3.8-10.1) Red Blood Count 4.31mil/mm3 (4.40-5.80) Mean Corpuscular Volume 92.1fL (81-100) Mean Corpuscular Hemoglobin 30.2pg (27.0-35.0) Mean Corpuscular Hemoglobin Concent 32.7% (32.0-37.0) Red Cell Distribution Width 14.1% (12.3-15.4) Platelet Count 157bil/L (150-400) Neutrophils (%) (Auto) 74.4% (40-74) Lymphocytes (%) (Auto) 14.2% (14-46) Monocytes (%) (Auto) 8.0% (4-12) Eosinophils (%) (Auto) 2.8% (0-5) Basophils (%) (Auto) 0.4% (0-3) Hemoglobin 12.8g/dL (13.8-17.2) Hematocrit 39.7% (41.0-50.0) CMP Test 10/13/16 07:45 Sodium Level 142mEq/L Potassium Level 4.1mEq/L Chloride Level 106mEq/L Carbon Dioxide Level 22mmol/L Blood Urea Nitrogen 23mg/dL Creatinine 0.79mg/dL Estimat Glomerular Filtration Rate 98mL/min Glucose Level 130mg/dL Calcium Level 9.1mg/dL Total Bilirubin 0.4mg/dL Aspartate Amino Transf (AST/SGOT) 17U/L Alanine Aminotransferase (ALT/SGPT) 12U/L Alkaline Phosphatase 56U/L Total Protein 6.6g/dL Albumin 4.2g/dL Hold Keyes Top Tube Received Result Diagram: 10/13/16 1000 10/13/16 0745 X-Rays, CTs and MRIs Date of Service: 10/13/16635 PROCEDURE: X-RAY PELVIS W/LAT HIP (RT) ([id number]) INDICATIONS: trauma TECHNIQUE: AP pelvis with lateral view(s) of the right hip(s). COMPARISON: [facility], CR, XR PELVIS W LATERAL HIP RT, 05/09/2016 , 13:04. [facility], CR, XR PELVIS W LATERAL HIP RT, 04/11/2016, 11:08. FINDINGS: Bones: No dislocations. Pelvic ring appears intact. No suspicious bony lesions. There is a comminuted intertrochanteric right hip fracture and also a previously present anterior column right obturator ring fracture superiorly in what appears to be a minimally displaced previously present right inferior obturator ring fracture. Prior left hip arthroplasty. Soft tissues: The visualized bowel gas pattern is normal. No suspicious soft tissue calcifications. IMPRESSION: Prior left hip arthroplasty stable, prior obturator ring fractures on the right, new comminuted intertrochanteric right hip fracture. Date of Service: 10/13/16635 PROCEDURE: X-RAY CHEST ONE VIEW, PORTABLE ([id number]) INDICATIONS: trauma TECHNIQUE: One view of the chest was acquired. COMPARISON: [facility], CR, CHEST 1VW (PORTABLE), 05/24/2012, 4: 46. [facility], CR, CHEST 2VW, 12/10/2011, 10:06. FINDINGS: Surgical changes and devices: Sternotomy wires, pacemaking device and dual chamber leads stable over time. Lungs and pleura: No pleural effusions or pneumothorax. Lungs are abnormal with a chronic mild interstitial prominence which may reflect a prior smoking history.. Mediastinum: Mediastinal contours appear normal. Heart size is at or just above the upper limits of normal but no acute CHF is suspected. Bones and chest wall: No suspicious bony lesions. Overlying soft tissues appear unremarkable. IMPRESSION: Stable postsurgical change and chronic interstitial prominence, no definite acute disease. Date of Service: 10/13/16 0939 PROCEDURE: X-RAY RIGHT FEMUR, TWO VIEWS ([id number]) INDICATIONS: trauma TECHNIQUE: 3 views of the femur were acquired. COMPARISON: None. FINDINGS: Bones: Moderately comminuted intertrochanteric right hip fracture but no dislocations. No suspicious bony lesions. Right total knee arthroplasty is partially visualized in the portion included on this study is not disrupted. Soft tissues: No suspicious soft tissue calcifications or masses. IMPRESSION: The comminuted intertrochanteric right hip fracture is in near anatomic alignment of the lesser trochanter is fractured at its base and displaced cephalad to lie medial to the femoral neck. Prior right total knee arthroplasty partially visualized by this study. That device does not appear disrupted. 12-lead ECG Today's EKG Atrial paced rhythm, nonspecific intraventricular conduction delay, repeat abnormalities suggestive of coronary sufficiency in multiple leads. Prior EKG in August 2016 shows ventricular paced rhythm Assessment & Plan Problems: (1) CAD (coronary artery disease) Qualifiers: Coronary Disease-Associated Artery/Lesion type: unga artery [place] vs. transplanted heart: unga heart Associated angina: without angina Qualified Code: I25.10 - Atherosclerotic heart disease of unga coronary artery without angina pectoris Plan: The patient currently has no acute cardiac symptoms that would require further cardiac diagnostic studies prior to his upcoming urgent surgery. A repeat echocardiogram is not necessary since there is no cardiac clinical changes since his last visit with his primary assayer helper. There are no signs of congestive heart failure nor does he have any symptoms concerning for unstable angina. His last pacemaker interrogation shows episodes of paroxysmal atrial fibrillation with predominant atrial and ventricular paced rhythm but no history of being pacemaker dependent. I would simply restart all of his home medications but obviously hold his warfarin for now. The patient however has history of carotid disease and there is no mention of bruit on his last cardiovascular examination. However on today's examination he has unilateral bruit on the right side and no evidence of bruit on the left side. Given this finding, I think it would be prudent to have a carotid Doppler prior to surgery to make sure there is no significant progression of carotid disease. If his carotid Doppler shows no evidence of severe disease and he may proceed with his orthopedic surgery. Status: Chronic ICD Code: I25.10 (2) Carotid disease, bilateral Plan: As mentioned above on examination there was a carotid bruit on the right side and not on the left. Usually with aortic stenosis, transmitted murmurs are usually auscultated in both arteries but this is not the case. Given this I recommend to have a carotid Doppler performed prior to surgery just to be sure that there is no evidence of severe/critical carotid stenosis. I have discussed my concerns with Dr. Sánchez. If his carotid Doppler shows no evidence of critical disease then he may proceed with his surgery without further delay. Status: Chronic ICD Code: I77.9 (3) Paroxysmal atrial fibrillation Plan: Patient is currently on warfarin which is currently in be reversed by holding it for now. He does have history of TIA which could be related to his carotid disease or paroxysmal A. fib. Given this the patient should probably be bridged with intravenous heparin pre-and postoperatively. I recommend to start his warfarin immediately after his surgery if there are no bleeding complications. Status: Chronic ICD Code: I48.0 (4) History of permanent cardiac pacemaker placement Plan: No preoperative programming is needed prior to his surgery. A magnet is not necessary but certainly would recommend to keep one in the operating room in case there is inhibition of pacing from over sensing cauterization. He is not pacemaker dependent. Status: Chronic ICD Code: Z95.0 (5) Hypertension Qualifiers: Hypertension type: essential hypertension Qualified Code: I10 - Essential (primary) hypertension Plan: His blood pressure has improved after restarting his blood pressure medication as well as better control of pain. Status: Chronic ICD Code: I10 (6) Sick sinus syndrome Plan: Patient has dual-chamber permanent pacemaker. Status: Chronic ICD Code: I49.5 (7) PAD (peripheral artery disease) Status: Chronic ICD Code: I73.9 Resuscitation Status: CPR: Attempt Resuscitation Time spent 80 minutes Brett Luque MD Oct 13, 2016 16:00
--- NOTE | 2016-10-13 16:15 | CONS ---
[address] [address] CONSULTATION REPORT PATIENT: SCOTT PEARL : 1930 MR#: [id number] ADMIT: 10/13/2016 JOB ID: [id number] DATE OF SERVICE: 10/13/2016 Orthopedic consultation, CPT code 71060-65, decision for surgery. CHIEF COMPLAINT: I was asked to see this orthopedic patient in consultation by Dr. Sánchez on the hospitalist service, as well as Dr. Baird from the emergency department. This is an 86-year-old male, who tripped and fell, sustaining a right intertrochanteric-subtrochanteric femoral fracture. The patient has had problems with tripping while walking. He had one fall on September 27, 2016, and now a new fracture this morning, on October 13, 2016. The patient is on numerous medications. He is on aspirin, Coumadin, Cardizem, Zetia, levothyroxine, lisinopril, metoprolol, oxybutynin, Crestor, sotalol, CoQ10, and Coumadin 2.5 mg Saturday, Saturday, Saturday, Saturday, and 3.75 mg Saturday, and Saturday. PAST MEDICAL HISTORY: Prior surgery: He has had a left total hip replacement, a right total knee replacement. Prior history of coronary artery bypass grafting x2 and pacemaker insertion. Medical history: Positive for tachybrady syndrome, peptic ulcer, TIAs, gastric reflux, hypothyroidism, BPH with obstruction, coronary artery disease, diabetes mellitus, hyperlipidemia, hypertension, and history of atrial fibrillation and on anticoagulation with Coumadin. SMOKING HISTORY: The patient is a former smoker. AMBULATORY STATUS: He is usually independent ambulator. He does live in a senior citizen type of [facility]. REVIEW OF SYSTEMS: HEENT: Denies any blurring of vision. Has some decreased hearing. Respiratory: No acute shortness of breath. Cardiovascular: No chest pain. GI: No nausea, vomiting. Musculoskeletal: Right hip pain. The patient also has history of some peripheral vascular disease. Psychiatric: No anxiety or depression. Hematologic: Does have easy bruising since he is on Coumadin. PHYSICAL EXAMINATION: 182 cm, 88 kg male. Temperature 36.6, pulse 60, respirations 20, blood pressure 223/94. Blood pressure was repeated and is 186/83. The patient has pain in the right leg. Right leg is shortened. He has evidence for venous stasis disease and some decreased circulation in the lower extremities. Also has some mild peripheral neuropathy. Calves are soft. ADDITIONAL LABORATORY TESTING: White count 11,800, hemoglobin 13, hematocrit 39.7. Repeat H and H, hemoglobin 12.8, hematocrit 39.7. Coagulation: PT 26.1, INR 2.4, PTT 31.4. Chemistry: Sodium 142, potassium 4.1, chloride 106, CO2 22, BUN 23, creatinine 0.79. Random glucose at 130. Calcium 9.1. Liver function tests within normal limits. Urinalysis clear. Specific gravity 1.020, 0-2 red cells, 0-5 white cells, no bacteria. Additional hematologic testing: Platelet count 157,000. Chest x-ray shows chronic interstitial prominence with no acute disease. The patient has a pacemaker and has had prior open cardiac surgery. Hip films show that he has a comminuted right intertrochanteric-subtrochanteric femoral fracture as well as a prior right total knee replacement. IMPRESSION: Comminuted right intertrochanteric-subtrochanteric femoral fracture. History of coronary artery disease and patient is on anticoagulation with history of previous atrial fibrillation. His electrocardiogram just shows an atrial paced rhythm with some ST depression. PLAN: The patient will need preoperative medical clearance from the medical service as well as Cardiology. I have suggested repeat CBC and PT, PTT, INR in the morning. He will be given some vitamin K and may also need fresh frozen plasma. The hospitalist will check and see if he needs additional treatment to lower the PT and INR once the patient has received some vitamin K. I have explained the risks and benefits of surgery to the patient. He is aware of the risks for bleeding, infection, pain, and stiffness, possibility for damage to the surrounding neurovascular structures, potential for delayed union, nonunion, malunion, and possible hardware failure. Surgical consent has been signed. We would also like to have 2 units of blood available in the blood bank, if needed. We will proceed with surgery tomorrow, if he is cleared medically CC: [facility] Orthopedics
[2016-10-13] MEDS: Lisinopril 40 Tablet PO SCH ×2 (16:21→21:23)
[2016-10-13] MEDS ORDERED: POLY17PO2 PO (16:25)
[2016-10-13] MEDS: Polyethylene Glycol (PEG) 17 Gm Powder PO PRN (18:00)
--- NOTE | 2016-10-13 18:50 | DRSVH ---
PROCEDURE: US BILATERAL DUPLEX DOPPLER IMAGING OF THE CAROTIDS ([id number]) INDICATIONS: R carotid bruit TECHNIQUE: Color and pulse Doppler interrogation was performed of both carotid systems, with image documentation and velocity measurements. COMPARISON: None. FINDINGS: All stenosis calculations are based on NASCET criteria. Right side: Brachial blood pressure: 127/67 mm Hg. Common carotid artery peak systolic velocity: 63 cm/sec. Internal carotid artery peak systolic velocity: 38 cm/sec. Internal carotid artery end diastolic velocity: 12 cm/sec. External carotid artery peak systolic velocity: 64 cm/sec. ICA/CCA peak systolic ratio: 0.6. Deluna scale imaging description: Mild calcific and soft plaque Percent internal carotid artery stenosis: Less than 50% stenosis. Vertebral artery: Flow direction is antegrade. Left side: Brachial blood pressure: 150/90 mm Hg. Common carotid artery peak systolic velocity: 125 cm/sec. Internal carotid artery peak systolic velocity: 87 cm/sec. Internal carotid artery end diastolic velocity: 27 cm/sec. External carotid artery peak systolic velocity: 36 cm/sec. ICA/CCA peak systolic ratio: 0.7. Deluna scale imaging description: Mild calcific and soft plaque Percent internal carotid artery stenosis: Less than 50% stenosis. Vertebral artery: Flow direction is antegrade. IMPRESSION: Quality of visualization is somewhat limited by patient body habitus, positioning of the vessels and calcific plaque producing shadowing. A definite high-grade stenosis is not present. Es timated current maximal stenosis is considered to be less than 50% but elective followup MR angiograp hic imaging may be warranted depending on the clinical status given the suboptimal quality of visuali zation. Dictated by: Kavon Lira M.D. on 10/13/2016 at 18:45 Approved by: Kavon Lira M.D. on 10/13/2016 at 18:48
[2016-10-13 20:33] VITALS: BP 117/61; PULSE 63; RESP 20; O2SAT 94
--- NOTE | 2016-10-13 20:51 | PCM.HPMED ---
Subjective Date of Service Oct 13, 2016 Primary Provider: Admitting Physician: Ladonna Sánchez DO Primary Care Physician: Quinton Ramos MD Attending Physician: Ladonna Sánchez DO Admit Status: From the Emergency Department Chief Complaint: Fall History of Present Illness: 86-year-old Scott Jose D is presenting to the ER after suffering a fall at [facility]. Patient states that he has suffered a fall couple of weeks ago a ground-level fall, went to the ER and subsequently was sent home. He has been walking (uses a walker as needed). This morning as he was trying to go to the bathroom he slipped and fell over a area rug. He states that it is a completely mechanical fall, he did not lose consciousness or blackout. He sees Dr. Crandall in cardiology. He states that the pain was very intense but Dilaudid help in the ER. He denies chest pain and back pain shortness of breath but does endorse some urine frequency, constipation. He denies recent fevers chills and infections. Patient did not eat or take his morning medications. In the ER hemoglobin was 13.5 INR was 2.4 white count was 11.8, he was given vitamin K 10 mg by mouth. Ortho was contacted and Dr. Nicholson is planning on surgery tomorrow or day after. She would like for a cardiology consult, echocardiogram. EKG showed paced rhythm with ST depression in V3. Type and cross was ordered a repeat H&H showed hemoglobin level of 4.8. A chest x-ray showed diffuse interstitial markings x-ray of right hip showed intertrochanteric fracture. Patient is admitted to the hospitalist service with orthopedics consulting. Review of Systems: I will review of systems negative except as stated above Allergies Coded Allergies: amiodarone (Verified Allergy, Severe, Hallucinations, 10/13/16) glimepiride (Verified Allergy, Intermediate, itching, 10/13/16) iodine (Verified Allergy, Intermediate, itching, 10/13/16) Shellfish (Verified Allergy, Mild, SHELLFISH: ITCHING, 10/13/16) gabapentin (Verified Allergy, Unknown, BLURRED VISION, 03/20/16) codeine (Verified Adverse Reaction, Intermediate, 03/20/16) Replaces CODEINE PHOSP Uncoded Allergies: SKIN AND MUCOUS MEMBRANE AGENTS (Allergy, Unknown, 04/10/04) CARDIAC DRUGS (Adverse Reaction, Unknown, 04/10/04) Home Medications As documented in the medication reconciliation PMH Pertinent for 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, pacemaker, tachybradycardia syndrome, TIA, peptic ulcer, GERD, hypothyroidism, BPH with obstruction, hyperlipidemia, hypertension, atrial fibrillation Surgical History Remarkable for left hip replacement, right knee replacement, CABG 2, pacemaker Family History Mother of cancer unknown type father in an accident Social History Hx Alcohol Use: Yes (occasional beer, rare) Hx Substance Use: No Hx Tobacco Use: No Smoking Status: Former Smoker Living Arrangement: Independent Group Home Exam Vital Signs Vital Sign - Last Date Time Temp Pulse Resp B/P Pulse Ox O2 Delivery O2 Flow Rate FiO2 10/13/16 08:40 69 17 179/78 10/13/16 06:53 95 Room Air 10/13/16 06:43 36.6 Exam Gen.: Mildly anxious Extremities: Negative for edema, hemosiderin deposits discoloration Dorsalis pedis 2+ bilaterally MSK: Able to move both feet, Able to move left lower extreme agonist gravity. Right lower extremity externally rotated. Cooler to touch Neuro: Unable to elicit patellar reflex bilaterally, no focal deficits Heart: Grade 1+ tricuspid murmur no radiation to shoulder axilla or neck Anterior lung auscultation: Barrel chest, no crackles or wheezes Eyes appear bloodshot Lab and Diagnostics Result Diagram: 10/13/16 1000 10/13/16 0745 X-Rays, CTs and MRIs [facility] Diagnostic Imaging Department [place], [place] [id number] Patient Name: SCOTT PEARL MR#: [id number] [place] [facility] Ordering Phys: Brett Luque MD Date of Service: 10/13/16 1543 PROCEDURE: US BILATERAL DUPLEX DOPPLER IMAGING OF THE CAROTIDS ([id number]) INDICATIONS: R carotid bruit TECHNIQUE: Color and pulse Doppler interrogation was performed of both carotid systems, with image documentation and velocity measurements. COMPARISON: None. FINDINGS: All stenosis calculations are based on NASCET criteria. Right side: Brachial blood pressure: 127/67 mm Hg. Common carotid artery peak systolic velocity: 63 cm/sec. Internal carotid artery peak systolic velocity: 38 cm/sec. Internal carotid artery end diastolic velocity: 12 cm/sec. External carotid artery peak systolic velocity: 64 cm/sec. ICA/CCA peak systolic ratio: 0.6. Deluna scale imaging description: Mild calcific and soft plaque Percent internal carotid artery stenosis: Less than 50% stenosis. Vertebral artery: Flow direction is antegrade. Left side: Brachial blood pressure: 150/90 mm Hg. Common carotid artery peak systolic velocity: 125 cm/sec. Internal carotid artery peak systolic velocity: 87 cm/sec. Internal carotid artery end diastolic velocity: 27 cm/sec. External carotid artery peak systolic velocity: 36 cm/sec. ICA/CCA peak systolic ratio: 0.7. Deluna scale imaging description: Mild calcific and soft plaque Percent internal carotid artery stenosis: Less than 50% stenosis. Vertebral artery: Flow direction is antegrade. IMPRESSION: Quality of visualization is somewhat limited by patient body habitus, positioning of the vessels and calcific plaque producing shadowing. A definite high-grade stenosis is not present. Estimated current maximal stenosis is considered to be less than 50% but elective followup MR angiographic imaging may be warranted depending on the clinical status given the suboptimal quality of visualization. Dictated by: Kavon Lira M.D. on 10/13/2016 at 18:45 Approved by: Kavon Lira M.D. on 10/13/2016 at 18:48 [facility] Diagnostic [place] [address] Patient Name: SCOTT PEARL MR#: [id number] [place] [facility] Ordering Phys: German Richardson MD Date of Service: 10/13/16 0939 PROCEDURE: X-RAY RIGHT FEMUR, TWO VIEWS ([id number]) INDICATIONS: trauma TECHNIQUE: 3 views of the femur were acquired. COMPARISON: None. FINDINGS: Bones: Moderately comminuted intertrochanteric right hip fracture but no dislocations. No suspicious bony lesions. Right total knee arthroplasty is partially visualized in the portion included on this study is not disrupted. Soft tissues: No suspicious soft tissue calcifications or masses. IMPRESSION: The comminuted intertrochanteric right hip fracture is in near anatomic alignment of the lesser trochanter is fractured at its base and displaced cephalad to lie medial to the femoral neck. Prior right total knee arthroplasty partially visualized by this study. That device does not appear disrupted. Dictated by: Kavon Lira M.D. on 10/13/2016 at 11:14 Approved by: Kavon Lira M.D. on 10/13/2016 at 11:15 [facility] Diagnostic [place] [address] Patient Name: SCOTT PEARL MR#: [id number] Location: [facility] Ordering Phys: German Richardson MD Date of Service: 10/13/16 0636 PROCEDURE: X-RAY CHEST ONE VIEW, PORTABLE ([id number]) INDICATIONS: trauma TECHNIQUE: One view of the chest was acquired. COMPARISON: [facility], , CHEST 1VW (PORTABLE), 05/24/2012, 4: 46. [facility], CR, CHEST 2VW, 12/10/2011, 10:06. FINDINGS: Surgical changes and devices: Sternotomy wires, pacemaking device and dual chamber leads stable over time. Lungs and pleura: No pleural effusions or pneumothorax. Lungs are abnormal with a chronic mild interstitial prominence which may reflect a prior smoking history.. Mediastinum: Mediastinal contours appear normal. Heart size is at or just above the upper limits of normal but no acute CHF is suspected. Bones and chest wall: No suspicious bony lesions. Overlying soft tissues appear unremarkable. IMPRESSION: Stable postsurgical change and chronic interstitial prominence, no definite acute disease. Dictated by: Kavon Lira M.D. on 10/13/2016 at 8:21 Approved by: Kavon Lira M.D. on 10/13/2016 at 8:22 [facility] Diagnostic [place] [address] Patient Name: SCOTT PEARL MR#: [id number] Location: [facility] Ordering Phys: German Richardson MD Date of Service: 10/13/16 0636 PROCEDURE: X-RAY PELVIS W/LAT HIP (RT) ([id number]) INDICATIONS: trauma TECHNIQUE: AP pelvis with lateral view(s) of the right hip(s). COMPARISON: [facility], CR, XR PELVIS W LATERAL HIP RT, 05/09/2016 , 13:04. [facility], CR, XR PELVIS W LATERAL HIP RT, 04/11/2016, 11:08. FINDINGS: Bones: No dislocations. Pelvic ring appears intact. No suspicious bony lesions. There is a comminuted intertrochanteric right hip fracture and also a previously present anterior column right obturator ring fracture superiorly in what appears to be a minimally displaced previously present right inferior obturator ring fracture. Prior left hip arthroplasty. Soft tissues: The visualized bowel gas pattern is normal. No suspicious soft tissue calcifications. IMPRESSION: Prior left hip arthroplasty stable, prior obturator ring fractures on the right, new comminuted intertrochanteric right hip fracture. Dictated by: Kavon Lira M.D. on 10/13/2016 at 8:22 Approved by: Kavon Lira M.D. on 10/13/2016 at 8:23 Assessment & Plan Right intertrochanteric fracture, secondary to fall, present on admission: -- Consult orthopedics, Dr. Nicholson is aware. She would like for us to consult cardiology for cardiac clearance -- Dr. Parra was a consult ed, he has seen the patient. I ordered a carotid duplex ultrasound, reviewed the echo from July this year. He feels no additional echo is required as patient had no symptoms since his last echo. He also reviewed the cardiac medications and the pacemaker history and last interrogation date. For now he says that we should do patient both beta blockers. We appreciate his recommendations. -- Hold Coumadin, trend INR. We will do 2 units of FFP if need be tomorrow a.m. -- Plan to give cardiac medications prior to surgery -- Pain control with Dilaudid and morphine Chronic conditions: CAD: Continue home medications gerd: Pantoprazole 20 mg daily Hypertension: Continue meds BPH: Continue meds Hypothyroidism: Continue home meds CODE STATUS: Full code DVT prophylaxis: Not indicated due to surgery tomorrow a.m., his INR is being reversed. SCD Disposition: Possible the second postoperative day 3, pending orthopedic approval, to either home with home care or snf For rehabilitation Pain Evaluation: Adequate Pain Control Ladonna Sánchez DO Oct 13, 2016 11:13
[2016-10-13] MEDS ORDERED: HYDROmorphone 1 mg/mL Inj IVPUSH PRN (23:55)
[2016-10-14] VITALS (12 sets, daily range): BP systolic 99–160; BP diastolic 52–70; PULSE 52–83; RESP 16–20; O2SAT 94–97
[2016-10-14] MEDS ORDERED: Acetaminophen IV 1,000 MG in IV Premix 1 EACH IV PRN
--- NOTE | 2016-10-14 00:21 | NUR ---
Pt had uncontrolled pain, rec'd marlee WILLIAM, nurse sitting outside Pt room, heard Pt snoring, went to check and found Pt not responding to his name or stimuli, nuha to charge nurse and called rapid response, 2344, they arrived immediately-2344. Pt had o2 on prior to their arrival-up to 13L, narcan was administered, Pt woke up. BP 160/70 P76 R 10, o2 95% on 13L with o2 mask. Pt able to follow commands and new his name Code ended at 2354 Stayed with Pt, he is easily roused, pulse ox on, o2 95% on 3L via nc. BP 113/63 P 74 R16 Pt has mild confusion about the month he was born. He does know his name, wifes name, why he is here ad his pain. Able to move all extremities on command Addendum: 10/14/16 at 0107 by ISATU DUNAWAY RN Blood glucose was 176 at bedside
--- NOTE | 2016-10-14 04:20 | NUR ---
Pt developed a moist cough, Rt notified and verified his lungs are clear, charge nurse and supervisor smoke control present, encouraged Pt to cough and he was suctioned, very small amount out, Pt not cooperative. Pt on 5L o2 with sat 96%, Lungs are clear. Pt has coughed more for nurse. Sitting in high fowlers, when asked about pain he says its there but can not say how bad, unable to assess if needs pain meds at this time. Charge nurse ordered EKG as Pt stated he hurt in his chest, EKG normal. likely from sternal rub at prior episode
--- NOTE | 2016-10-14 04:46 | PCM.PNMED ---
Subjective Date of Service Oct 14, 2016 Subjective Rapid response called on patient who was unresponsive. Assessment Due to Opioid overdose Plan Dose of narcan Stop Morphine and Dilaudid Tylenol IV and Toradol IV for pain as need Med Phillip MD Oct 14, 2016 04:46
[2016-10-14 06:56] LABS: BASOPHILS % (AUTO) 0.1 % (0-3); EOSINOPHILS % (AUTO) 0 % (0-5); MONOCYTES % (AUTO) 4.5 % (4-12); Mean Corpuscular Hemoglobin 30.5 pg (27.0-35.0); Mean Corpuscular Volume 95.4 fL (81-100); NEUTROPHILS % (AUTO) 87.3 % (40-74); Platelet Count 147 bil/L (150-400)
[2016-10-14 07:16] LABS: INR 1.37 ratio
[2016-10-14] MEDS: Diltiazem CD 120 mg ER24 Capsule PO SCH ×2 (08:30→20:10)
[2016-10-14] MEDS: Tolterodine ER 2 mg ER24 Capsule PO SCH (08:30)
[2016-10-14] MEDS: Lisinopril 40 Tablet PO SCH ×2 (08:30→20:10)
--- NOTE | 2016-10-14 09:27 | DRSVH ---
PROCEDURE: X-RAY CHEST ONE VIEW, PORTABLE ([id number]) INDICATIONS: sob TECHNIQUE: One view of the chest was acquired. COMPARISON: [facility], CR, XR CHEST 1VW (PORTABLE), 10/13/2016, 6:53. FINDINGS: Surgical changes and devices: Status post CABG procedure. Lungs and pleura: No pleural effusions or pneumothorax. Mild cephalization of pulmonary vasculature and perihilar indistinctness suspicious for CHF. Mediastinum: Mediastinal contours appear normal. Heart size is enlarged. Bones and chest wall: No suspicious bony lesions. Overlying soft tissues appear unremarkable. IMPRESSION: Mild cephalization pulmonary vasculature and perihilar indistinctness which in the [facility] clinical setting could represent CHF. Dictated by: Filomena Diaz MD, PhD on 10/14/2016 at 9:24 Approved by: Filomena Diaz MD, PhD on 10/14/2016 at 9:25
[2016-10-14] MEDS ORDERED: Heparin 25K Unit/500mL 0.45 NS 25,000 UNIT in IV Premix 1 EACH IV SCH (10:55)
[2016-10-14] MEDS ORDERED: Heparin 5,000 Unit/mL Inj IVPUSH PRN (10:55)
[2016-10-14] MEDS: Ketorolac 15 mg/mL Inj IVPUSH PRN ×2 (11:01→22:31)
[2016-10-14] MEDS ORDERED: Lactated Ringer's 1,000 ML IV ONE (11:01)
--- NOTE | 2016-10-14 12:16 | NUR ---
Confusion Pt having intermittent confusion this a.m. Did not know the correct time/year and did not know where he was or why he was here. Later in the morning he was oriented x 3. Hospitalist aware of pt's condition. May be related to narcotics administered yesterday. Will continue to monitor pt's LOC and orientation.
[2016-10-14] MEDS ORDERED: Doxycycline Inj 100 MG in Dextrose 5% Minibag Plus 100 ML IV SCH (13:40)
[2016-10-14] MEDS ORDERED: Furosemide 10 mg/mL 2 mL Inj IVPUSH ONE (13:45)
--- NOTE | 2016-10-14 14:10 | PCM.PNORTH ---
Subjective Date of Service: Oct 14, 2016 Visit Information: Reason for Visit Hip Fracture Surgery/Surgery Date Post-Op Day # Date of Admission: Oct 13, 2016 at 09:37 Hospital Day # 2 Subjective Patient had an episode of unresponsiveness last night and rapid response team was called. Narcan was administered and patient woke up. Narcotics have been discontinued. Patient is taking Tylenol by mouth or Toradol IV for pain. Patient has developed some pulmonary issues as well. Surgery for the right hip has been postponed until tomorrow. Patient is very hard of hearing. His code status has been changed to DNR. Postop General: No Shortness of Breath, No Chest Pain Pain Management: PO, IV Push Objective Exam Objective Patient is seen sitting up in bed Vital Signs and I/O Vital Sign - Last Date Time Temp Pulse Resp B/P Pulse Ox O2 Delivery O2 Flow Rate FiO2 10/14/16 13:21 60 94 Nasal Cannula 3.00 10/14/16 10:38 16 108/54 10/14/16 09:43 36.7 Intake and Output 10/13/16 10/13/16 10/14/16 Cumulative From/Thru 15:00 23:00 07:00 10/13/16 06:43 - 10/14/16 05:41 Intake Total 150 ml 100 ml 250 ml Output Total 300 ml 550 ml 350 ml 1200 ml Balance -300 ml -400 ml -250 ml -950 ml Intake Oral 150 ml 100 ml 250 ml Output Urine Total 300 ml 550 ml 350 ml 1200 ml # Bowel Movements 0 0 0 Lab & Micro Results Laboratory Tests Test 10/14/16 05:58 10/14/16 12:15 White Blood Count 16.7th/mm3 (3.8-10.1) Red Blood Count 3.71mil/mm3 (4.40-5.80) Hemoglobin 11.3g/dL (13.8-17.2) Hematocrit 35.4% (41.0-50.0) Mean Corpuscular Volume 95.4fL (81-100) Mean Corpuscular Hemoglobin 30.5pg (27.0-35.0) Mean Corpuscular Hemoglobin Concent 31.9% (32.0-37.0) Red Cell Distribution Width 14.3% (12.3-15.4) Platelet Count 147bil/L (150-400) Neutrophils (%) (Auto) 87.3% (40-74) Lymphocytes (%) (Auto) 7.9% (14-46) Monocytes (%) (Auto) 4.5% (4-12) Eosinophils (%) (Auto) 0% (0-5) Basophils (%) (Auto) 0.1% (0-3) Prothrombin Time 14.8sec (8.1-12.5) Prothromb Time International Ratio 1.37ratio Activated Partial Thromboplast Time 26.2sec (22.8-33.0) 27.3sec (22.8-33.0) Sodium Level 140mEq/L (134-144) Potassium Level 4.7mEq/L (3.5-5.2) Chloride Level 104mEq/L (97-108) Carbon Dioxide Level 23mmol/L (18-29) Blood Urea Nitrogen 34mg/dL (8-27) Creatinine 1.11mg/dL (0.76-1.27) Estimat Glomerular Filtration Rate 66mL/min (>59) Glucose Level 158mg/dL (60-99) Calcium Level 8.7mg/dL (8.5-10.1) Total Bilirubin 0.8mg/dL (0.0-1.2) Aspartate Amino Transf (AST/SGOT) 16U/L (0-50) Alanine Aminotransferase (ALT/SGPT) 11U/L (0-44) Alkaline Phosphatase 48U/L (25-160) Troponin T 0.010ug/L (0.0-0.011) Pro-B-Type Natriuretic Peptide 889.8pg/mL (0-486) Total Protein 6.0g/dL (6.4-8.4) Albumin 3.8g/dL (3.4-5.0) Procalcitonin 0.38ng/mL (0.00-0.08) Result Diagram: 10/14/1655710/14/16557 General Appearance: Alert, Oriented X3, Cooperative, No Acute Distress Extremities: Distal Pulses Palpable, No Compartment Syndrom Noted, Tenderness/ Swelling Noted (of right hip and proximal thigh), Other (right lower extremity shortened and externally rotated) Postop Sensory Motor: Distal Motor Intact, NVI Distally Activity: Bedrest Catheters: Urethral 2 Way Guzman Assessment & Plan Impression Right hip intertrochanteric/subtrochanteric fracture Problems: Plan Surgery is postponed from this afternoon to tomorrow. The patient had an episode of unresponsiveness last night and rapid response team was called. The patient responded to Narcan. All narcotics have been discontinued. Patient is currently taking Tylenol or Toradol for pain. The patient is doing better tomorrow hopefully we can proceed with surgery with Dr. Nicholson in the afternoon. Resuscitation Status: CPR: Attempt Resuscitation [place] PA-C Oct 14, 2016 14:10
--- NOTE | 2016-10-14 15:00 | NUR ---
Social Work: Initial Assessment Data: EMR reviewed. Pt is a 86 y/o male admitted for hip fracture per H&P. SW met with pt at bedside to conduct initial assessment. SW notes that pt was not an appropriate historian at time of assessment. SW confirmed it was okay with pt to call pt's DPOA and gather more information for initial assessment. SW contacted DPOA, daughter Sherlyn ([phone]) to complete assessment. Daughter confirmed the following: Pt's PCP is Dr. Quinton Ramos MD and insurance is Medicare and [facility]. Pt does not have VA or LTC insurance. Pt [facility]. Pt is independent at baseline with use of walker and cane. Pt does not drive. Daughter confirmed that pt has completed DPOA/advanced directive paperwork and daughter will bring copy of hospital. Pt has history of HH services through [facility] and SNF through [facility]. Daughter stated that they do not want to go back to [facility]. SW discussed with daughter that pt will likely need a SNF for rehabilitation after discharge. Daughter was agreeable to recommendation and requested a list of SNF options. Daughter requested to meet SW to discuss options. SW will provide daughter with choice list when daughter arrives to hospital on 10/15. Pt is scheduled for surgery tomorrow. SW will meet with daughter and continue to follow. Paperwork and PASSR in folder. Assessment: Pt will likely need a SNF for rehabilitation after surgery. SW confirmed recommendation with pt's daughter Sherlyn (DPOA). Pt and family are agreeable to recommendation. SW will determine pt's SNF choice tomorrow and make referral. Plan: SW will determine pt's SNF choice tomorrow and make referral. SW will continue to follow. ORION Miller Addendum: 10/14/16 at 1517 by RENNY HAMM Amended: Links added.
[2016-10-14] MEDS ORDERED: 0.9% Sodium Chloride 0 ML ONE (15:20)
--- NOTE | 2016-10-14 16:28 | PCM.PNMED ---
Subjective Date of Service Oct 14, 2016 Subjective Patient had an episode of requesting to much pain medication last night. He needed Narcan. This a.m. he is very confused. Last night's x-ray was read as CHF but he does not appear to be in real resp distress or clinically in CHF. No overnight fevers (elevated temperature is noted however). Called daughter Sherlyn at home. Sherlyn states that her Dad had a similar experience with pain meds and became confused in the hosp before. She also knows her Dad filled out a POLST in the past which states he is DNR/DNI. She feels he may not have understood the code status discussion very well. She thinks she can ask the staff at [facility] to fax it over to the hospital. This form was received later in the day. Patient is agreeable to whatever daughter Sherlyn decides and she has asked for us to honor POLST. This patient is made DO NOT RESUSCITATE/ DO NOT INTUBATE Patient is following commands but does not know where he is. Denies shortness of breath. States pain is 10 out of 10. Exam Vital Signs Vital Sign - Last Date Time Temp Pulse Resp B/P Pulse Ox O2 Delivery O2 Flow Rate FiO2 10/14/16 05:33 83 10/14/16 01:38 Supplement Oxygen 10/14/16 00:43 36.8 18 113/63 95 3.00 Intake and Output 10/13/16 10/13/16 10/14/16 Cumulative From/Thru 15:00 23:00 07:00 10/13/16 06:43 - 10/13/16 18:30 Intake Total 150 ml 150 ml Output Total 300 ml 550 ml 850 ml Balance -300 ml -400 ml -700 ml Intake Oral 150 ml 150 ml Output Urine Total 300 ml 550 ml 850 ml # Bowel Movements 0 0 Exam General: NAD, laying in bed, some what dyspneic male HEENT: NCAT, missing dentition Eyes: [place] conjunctivae. No ptosis, PERRL Neck: No masses, trachea midline, no thyromegaly Lungs: CTA with normal respiratory effort, no crackles or wheezes anteriorly CV: Grade 1+ systolic murmur, regular rate GI: Soft, non-tender with no hepatosplenomegaly MSK: no digital cyanosis, able to move her toes on both feet, able to lift left lower extremity against gravity. Skin: Warm and dry. Psych: Appears mildly anxious Neurological: CN II-12 grossly normal, gagging deferred. Withdraws to Babinski is. Unable to follow commands for alternating hands and finger to nose test. Unable to elicit reflexes in patellar and Achilles. Oriented to person but not to place and time IVs and Medications IV Fluids None Medications Reviewed: Medications were reviewed in detail Lab and Diagnostics Laboratory Tests Test 10/14/16 05:58 10/14/16 12:15 White Blood Count 16.7th/mm3 (3.8-10.1) Red Blood Count 3.71mil/mm3 (4.40-5.80) Hemoglobin 11.3g/dL (13.8-17.2) Hematocrit 35.4% (41.0-50.0) Mean Corpuscular Volume 95.4fL (81-100) Mean Corpuscular Hemoglobin 30.5pg (27.0-35.0) Mean Corpuscular Hemoglobin Concent 31.9% (32.0-37.0) Red Cell Distribution Width 14.3% (12.3-15.4) Platelet Count 147bil/L (150-400) Neutrophils (%) (Auto) 87.3% (40-74) Lymphocytes (%) (Auto) 7.9% (14-46) Monocytes (%) (Auto) 4.5% (4-12) Eosinophils (%) (Auto) 0% (0-5) Basophils (%) (Auto) 0.1% (0-3) Prothrombin Time 14.8sec (8.1-12.5) Prothromb Time International Ratio 1.37ratio Activated Partial Thromboplast Time 26.2sec (22.8-33.0) 27.3sec (22.8-33.0) Sodium Level 140mEq/L (134-144) Potassium Level 4.7mEq/L (3.5-5.2) Chloride Level 104mEq/L (97-108) Carbon Dioxide Level 23mmol/L (18-29) Blood Urea Nitrogen 34mg/dL (8-27) Creatinine 1.11mg/dL (0.76-1.27) Estimat Glomerular Filtration Rate 66mL/min (>59) Glucose Level 158mg/dL (60-99) Calcium Level 8.7mg/dL (8.5-10.1) Total Bilirubin 0.8mg/dL (0.0-1.2) Aspartate Amino Transf (AST/SGOT) 16U/L (0-50) Alanine Aminotransferase (ALT/SGPT) 11U/L (0-44) Alkaline Phosphatase 48U/L (25-160) Troponin T 0.010ug/L (0.0-0.011) Pro-B-Type Natriuretic Peptide 889.8pg/mL (0-486) Total Protein 6.0g/dL (6.4-8.4) Albumin 3.8g/dL (3.4-5.0) Procalcitonin 0.38ng/mL (0.00-0.08) Result Diagram: 10/13/16 1000 10/13/16 0745 X-Rays, CTs and MRIs [facility] Diagnostic [place] [address] Patient Name: SCOTT PEARL MR#: [id number] [place] [facility] [place] Ordering Phys: Brett Luque MD Date of Service: 10/13/16 1543 PROCEDURE: US BILATERAL DUPLEX DOPPLER IMAGING OF THE CAROTIDS ([id number]) INDICATIONS: R carotid bruit TECHNIQUE: Color and pulse Doppler interrogation was performed of both carotid systems, with image documentation and velocity measurements. COMPARISON: None. FINDINGS: All stenosis calculations are based on NASCET criteria. Right side: Brachial blood pressure: 127/67 mm Hg. Common carotid artery peak systolic velocity: 63 cm/sec. Internal carotid artery peak systolic velocity: 38 cm/sec. Internal carotid artery end diastolic velocity: 12 cm/sec. External carotid artery peak systolic velocity: 64 cm/sec. ICA/CCA peak systolic ratio: 0.6. Deluna scale imaging description: Mild calcific and soft plaque Percent internal carotid artery stenosis: Less than 50% stenosis. Vertebral artery: Flow direction is antegrade. Left side: Brachial blood pressure: 150/90 mm Hg. Common carotid artery peak systolic velocity: 125 cm/sec. Internal carotid artery peak systolic velocity: 87 cm/sec. Internal carotid artery end diastolic velocity: 27 cm/sec. External carotid artery peak systolic velocity: 36 cm/sec. ICA/CCA peak systolic ratio: 0.7. Deluna scale imaging description: Mild calcific and soft plaque Percent internal carotid artery stenosis: Less than 50% stenosis. Vertebral artery: Flow direction is antegrade. IMPRESSION: Quality of visualization is somewhat limited by patient body habitus, positioning of the vessels and calcific plaque producing shadowing. A definite high-grade stenosis is not present. Estimated current maximal stenosis is considered to be less than 50% but elective followup MR angiographic imaging may be warranted depending on the clinical status given the suboptimal quality of visualization. Dictated by: Kavon Lira M.D. on 10/13/2016 at 18:45 Approved by: Kavon Lira M.D. on 10/13/2016 at 18:48 [facility] Diagnostic Imaging Department [place], [place] [id number] Patient Name: SCOTT PEARL MR#: [id number] Location: [facility] Ordering Phys: German Richardson MD Date of Service: 10/13/16 0939 PROCEDURE: X-RAY RIGHT FEMUR, TWO VIEWS ([id number]) INDICATIONS: trauma TECHNIQUE: 3 views of the femur were acquired. COMPARISON: None. FINDINGS: Bones: Moderately comminuted intertrochanteric right hip fracture but no dislocations. No suspicious bony lesions. Right total knee arthroplasty is partially visualized in the portion included on this study is not disrupted. Soft tissues: No suspicious soft tissue calcifications or masses. IMPRESSION: The comminuted intertrochanteric right hip fracture is in near anatomic alignment of the lesser trochanter is fractured at its base and displaced cephalad to lie medial to the femoral neck. Prior right total knee arthroplasty partially visualized by this study. That device does not appear disrupted. Dictated by: Kavon Lira M.D. on 10/13/2016 at 11:14 Approved by: Kavon Lira M.D. on 10/13/2016 at 11:15 [facility] Diagnostic Imaging Department [place], [place] [id number] Patient Name: SCOTT PEARL MR#: [id number] Location: [facility] Ordering Phys: German Richardson MD Date of Service: 10/13/16 0636 PROCEDURE: X-RAY CHEST ONE VIEW, PORTABLE ([id number]) INDICATIONS: trauma TECHNIQUE: One view of the chest was acquired. COMPARISON: [facility], CR, CHEST 1VW (PORTABLE), 05/24/2012, 4: 46. [facility], CR, CHEST 2VW, 12/10/2011, 10:06. FINDINGS: Surgical changes and devices: Sternotomy wires, pacemaking device and dual chamber leads stable over time. Lungs and pleura: No pleural effusions or pneumothorax. Lungs are abnormal with a chronic mild interstitial prominence which may reflect a prior smoking history.. Mediastinum: Mediastinal contours appear normal. Heart size is at or just above the upper limits of normal but no acute CHF is suspected. Bones and chest wall: No suspicious bony lesions. Overlying soft tissues appear unremarkable. IMPRESSION: Stable postsurgical change and chronic interstitial prominence, no definite acute disease. Dictated by: Kavon Lira M.D. on 10/13/2016 at 8:21 Approved by: Kavon Lira M.D. on 10/13/2016 at 8:22 [facility] Diagnostic Imaging Department [place], [place] [id number] Patient Name: SCOTT PEARL MR#: [id number] Location: [facility] [place] Ordering Phys: German Richardson MD Date of Service: 10/13/16 0636 PROCEDURE: X-RAY PELVIS W/LAT HIP (RT) ([id number]) INDICATIONS: trauma TECHNIQUE: AP pelvis with lateral view(s) of the right hip(s). COMPARISON: [facility], CR, XR PELVIS W LATERAL HIP RT, 05/09/2016 , 13:04. [facility], CR, XR PELVIS W LATERAL HIP RT, 04/11/2016, 11:08. FINDINGS: Bones: No dislocations. Pelvic ring appears intact. No suspicious bony lesions. There is a comminuted intertrochanteric right hip fracture and also a previously present anterior column right obturator ring fracture superiorly in what appears to be a minimally displaced previously present right inferior obturator ring fracture. Prior left hip arthroplasty. Soft tissues: The visualized bowel gas pattern is normal. No suspicious soft tissue calcifications. IMPRESSION: Prior left hip arthroplasty stable, prior obturator ring fractures on the right, new comminuted intertrochanteric right hip fracture. Dictated by: Kavon Lira M.D. on 10/13/2016 at 8:22 Approved by: Kavon Lira M.D. on 10/13/2016 at 8:23 [facility] Diagnostic Imaging Department [place], [place] [id number] Patient Name: SCOTT PEARL MR#: [id number] Location: [facility] Ordering Phys: Med Phillip MD Date of Service: 10/14/16 0440 PROCEDURE: X-RAY CHEST ONE VIEW, PORTABLE ([id number]) INDICATIONS: sob TECHNIQUE: One view of the chest was acquired. COMPARISON: [facility], CR, XR CHEST 1VW (PORTABLE), 10/13/2016, 6: 53. FINDINGS: Surgical changes and devices: Status post CABG procedure. Lungs and pleura: No pleural effusions or pneumothorax. Mild cephalization of pulmonary vasculature and perihilar indistinctness suspicious for CHF. Mediastinum: Mediastinal contours appear normal. Heart size is enlarged. Bones and chest wall: No suspicious bony lesions. Overlying soft tissues appear unremarkable. IMPRESSION: Mild cephalization pulmonary vasculature and perihilar indistinctness which in the appropriate clinical setting could represent CHF. Dictated by: Filomena Diaz MD, PhD on 10/14/2016 at 9:24 Approved by: Filomena Diaz MD, PhD on 10/14/2016 at 9:25 [facility] Diagnostic Imaging Department [place], [place] [id number] Patient Name: SCOTT PEARL MR#: [id number] Location: [facility] Ordering Phys: Med Phillip MD Date of Service: 10/14/16 0440 PROCEDURE: X-RAY CHEST ONE VIEW, PORTABLE ([id number]) INDICATIONS: sob TECHNIQUE: One view of the chest was acquired. COMPARISON: [facility], CR, XR CHEST 1VW (PORTABLE), 10/13/2016, 6: 53. FINDINGS: Surgical changes and devices: Status post CABG procedure. Lungs and pleura: No pleural effusions or pneumothorax. Mild cephalization of pulmonary vasculature and perihilar indistinctness suspicious for CHF. Mediastinum: Mediastinal contours appear normal. Heart size is enlarged. Bones and chest wall: No suspicious bony lesions. Overlying soft tissues appear unremarkable. IMPRESSION: Mild cephalization pulmonary vasculature and perihilar indistinctness which in the appropriate clinical setting could represent CHF. Dictated by: Filomena iDaz MD, PhD on 10/14/2016 at 9:24 Approved by: Filomena Diaz MD, PhD on 10/14/2016 at 9:25 Assessment & Plan Right intertrochanteric fracture, secondary to fall, present on admission: -- Consult orthopedics, Dr. Nicholson is aware. She would like for us to consult cardiology for cardiac clearance -- Dr. Childers was a consult ed, he has seen the patient. I ordered a carotid duplex ultrasound, reviewed the echo from July this year. He feels no additional echo is required as patient had no symptoms since his last echo. He also reviewed the cardiac medications and the pacemaker history and last interrogation date. For now he says that we should do patient both beta blockers. We appreciate his recommendations. -- Hold Coumadin, trend INR. INR less than 1.5 today -- Plan to give cardiac medications prior to surgery -- Pain control with morphine when necessary and IV Tylenol -- Discussed the situation with Dr. Nicholson, she is agreeable to performing the surgery tomorrow afternoon in the light of a new concern for respiratory infection, patient's confusion this a.m. she is agreeable to starting heparin drip just for overnight. Asked staff to discontinue the heparin drip at 6 AM -- Patient is started on antibiotics to cover for bronchitis/pneumonia -- Patient is not clinically in CHF regardless of the radiology read. BNP was slightly elevated. 20 mg IV Lasix 1 time is administered Respirator infection: -- Mildly elevated temperatures, elevated white count, mild elevation in pro- calcitonin -- Doxycycline IV antibiotic is initiated -- We will order follow-up respiratory panel, urine strep and Legionella -- We will continue to monitor Chronic conditions: CAD: Continue home medications gerd: Pantoprazole 20 mg daily Hypertension: Continue meds BPH: Continue meds Hypothyroidism: Continue home meds CODE STATUS: DO NOT RESUSCITATE/DO NOT INTUBATE Alternate decision-maker: Daughter Sherlyn DVT prophylaxis: Subtherapeutic INR, heparin drip Disposition: Possible the second postoperative day 3, pending orthopedic approval, to either home with home care or snf For rehabilitation Pain Evaluation: Pain not Controlled VTE Mechanical Devices: Intermittant Pneumatic CD Resuscitation Status: DNR/DNI:Do Not Resuscitate/Intubate Ladonna Sánchez DO Oct 14, 2016 05:36
--- NOTE | 2016-10-14 17:23 | NUR ---
POLST We received a copy of pt's POLST from [facility]. Copy placed in pt's chart. Hospitalist notified.
[2016-10-15] VITALS (14 sets, daily range): BP systolic 125–185; BP diastolic 53–90; PULSE 68–91; RESP 13–23; O2SAT 94–98
[2016-10-15 01:12] LABS: INR 1.25 ratio
[2016-10-15 06:02] LABS: BASOPHILS % (AUTO) 0.2 % (0-3); EOSINOPHILS % (AUTO) 2.2 % (0-5); MONOCYTES % (AUTO) 9.6 % (4-12); Mean Corpuscular Hemoglobin 29.8 pg (27.0-35.0); NEUTROPHILS % (AUTO) 72.6 % (40-74); Platelet Count 111 bil/L (150-400)
--- NOTE | 2016-10-15 07:43 | NUR ---
Mentation / heparin gtt Continues to have forgetfulness about location, however, appears to be alert and more oriented throughout night. No narcotics used, pain well managed with repositioning, ice pack, and prn Toradol and PO Tylenol. Heparin drip stopped at 0600 per orders, managed through night per DVT/PE protocol. Pt has not eaten since before midnight, will keep NPO until certain of time for surgery.
--- NOTE | 2016-10-15 08:19 | PCM.PNORTH ---
Subjective Date of Service: Oct 15, 2016 Visit Information: Reason for Visit Hip Fracture Surgery/Surgery Date Post-Op Day # Date of Admission: Oct 13, 2016 at 09:37 Hospital Day #3 Subjective Patient is seen lying in bed. He is a bit confused today and thinks he is in [place]. Postop General: No Shortness of Breath, No Chest Pain Pain Management: PO, IV Push Objective Exam Objective Patient is seen lying in bed. He is oriented to person but is confused that his location. He understands that he is having surgery today for his hip Vital Signs and I/O Vital Sign - Last Date Time Temp Pulse Resp B/P Pulse Ox O2 Delivery O2 Flow Rate FiO2 10/15/16 05:40 36.9 68 20 130/69 96 Nasal Cannula 3.00 Intake and Output 10/14/16 10/14/16 10/15/16 Cumulative From/Thru 15:00 23:00 07:00 10/13/16 06:43 - 10/15/16 06:14 Intake Total 1141 ml 504 ml 1895 ml Output Total 250 ml 650 ml 2100 ml Balance 891 ml -146 ml -205 ml Intake Oral 860 ml 200 ml 1310 ml IV Total 281 ml 304 ml 585 ml Output Urine Total 250 ml 650 ml 2100 ml # Bowel Movements 0 0 Lab & Micro Results Laboratory Tests Test 10/14/16 12:15 10/14/16 18:40 10/15/16 00:15 10/15/16 00:45 Activated Partial Thromboplast Time 27.3sec (22.8-33.0) 83.6sec (22.8-33.0) 111.1sec (22.8-33.0) Prothrombin Time 13.4sec (8.1-12.5) Prothromb Time International Ratio 1.25ratio Test 10/15/16 05:15 White Blood Count 15.1th/mm3 (3.8-10.1) Red Blood Count 3.15mil/mm3 (4.40-5.80) Hemoglobin 9.4g/dL (13.8-17.2) Hematocrit 29.6% (41.0-50.0) Mean Corpuscular Volume 94.0fL (81-100) Mean Corpuscular Hemoglobin 29.8pg (27.0-35.0) Mean Corpuscular Hemoglobin Concent 31.8% (32.0-37.0) Red Cell Distribution Width 14.0% (12.3-15.4) Platelet Count 111bil/L (150-400) Neutrophils (%) (Auto) 72.6% (40-74) Lymphocytes (%) (Auto) 15.3% (14-46) Monocytes (%) (Auto) 9.6% (4-12) Eosinophils (%) (Auto) 2.2% (0-5) Basophils (%) (Auto) 0.2% (0-3) Sodium Level 138mEq/L (134-144) Potassium Level 4.4mEq/L (3.5-5.2) Chloride Level 102mEq/L (97-108) Carbon Dioxide Level 24mmol/L (18-29) Blood Urea Nitrogen 51mg/dL (8-27) Creatinine 1.30mg/dL (0.76-1.27) Estimat Glomerular Filtration Rate 55mL/min (>59) Glucose Level 120mg/dL (60-99) Calcium Level 8.7mg/dL (8.5-10.1) Total Bilirubin 0.6mg/dL (0.0-1.2) Aspartate Amino Transf (AST/SGOT) 24U/L (0-50) Alanine Aminotransferase (ALT/SGPT) 10U/L (0-44) Alkaline Phosphatase 43U/L (25-160) Total Protein 5.3g/dL (6.4-8.4) Albumin 3.2g/dL (3.4-5.0) Procalcitonin 1.93ng/mL (0.00-0.08) Microbiology 10/15/16 Adenovirus DNA (PCR), Received Pending 10/15/16 Coronavirus 229E PCR, Received Pending 10/15/16 Coronavirus HKU1 PCR, Received Pending 10/15/16 Coronavirus NL63 PCR, Received Pending 10/15/16 Coronavirus OC43 PCR, Received Pending 10/15/16 Influenza Type A (PCR), Received Pending 10/15/16 Influenza Type B (PCR), Received Pending 10/15/16 Human Metapneumovirus (PCR) (JULISA), Received Pending 10/15/16 Rhinovirus (PCR)(JULISA), Received Pending 10/15/16 Parainfluenza Virus Type 1 (PCR), Received Pending 10/15/16 Parainfluenza Virus Type 2 (PCR), Received Pending 10/15/16 Parainfluenza Virus Type 3 (PCR), Received Pending 10/15/16 Parainfluenza Virus Type 4 (NAAT), Received Pending 10/15/16 Respiratory Syncytial Virus (PCR)WV, Received Pending 10/15/16 Chlamydia pneumoniae (PCR), Received Pending 10/15/16 Mycoplasma pneumoniae DNA Detection, Received Pending 10/15/16 Streptococcus pneumoniae Ag Screen, Received Pending Result Diagram: 10/15/1651410/15/16514 Extremities: Distal Pulses Palpable, No Compartment Syndrom Noted, Tenderness/ Swelling Noted (right hip and thigh, as expected) Postop Sensory Motor: Distal Motor Intact, NVI Distally Activity: Bedrest Catheters: Urethral 2 Way Guzman Assessment & Plan Impression Right hip intertrochanteric/subtrochanteric fracture Problems: Plan To OR this afternoon with Dr. Nicholson, currently scheduled at 3 PM Preoperative instructions are reviewed with nursing Diet: Patient may have clear liquids until 11 AM, then nothing by mouth This morning give metoprolol and diltiazem Patient seems a little dry as BUN and creatinine have risen since yesterday. Will continue IV fluids until surgery at 80ml/hr VTE Prophylaxis: Sub-Q Heparin (Unfractionated) (held this morning) Resuscitation Status: DNR/DNI:Do Not Resuscitate/Intubate Maribel Villanueva PA-C Oct 15, 2016 08:19
[2016-10-15] MEDS: Diltiazem CD 120 mg ER24 Capsule PO SCH ×2 (08:29→22:54)
[2016-10-15] MEDS: Tolterodine ER 2 mg ER24 Capsule PO SCH (08:30)
[2016-10-15] MEDS: Lisinopril 40 Tablet PO SCH (08:30)
[2016-10-15] MEDS ORDERED: Doxycycline Inj 100 MG in Dextrose 5% Minibag Plus 100 ML IV SCH ×2 (08:30→10:25)
--- NOTE | 2016-10-15 10:15 | NUR ---
DEVIKA Signed @ [id number]
--- NOTE | 2016-10-15 10:26 | NUR ---
Social Work: Continued Discharge Planning SW met with daughter Sherlyn (DPOA) and provided SNF choice list. Daughter provided copy of POLST and DPOA paperwork. SW placed paperwork in pt's chart. SW wrote phone number on white board and confirmed follow-up with daughter regarding SNF choice. SW will continue to follow. ORION Miller
[2016-10-15] MEDS: Acetaminophen IV 1,000 MG in IV Premix 1 EACH IV PRN (12:25)
[2016-10-15] MEDS ORDERED: EPHEDrine/NS 5 mg/mL 5 mL Syringe ONE (12:46)
[2016-10-15] MEDS ORDERED: Vasopressin 20 Unit/mL Inj ONE (12:46)
[2016-10-15] MEDS ORDERED: fentaNYL-PF 50 mCg/mL 2 mL Inj ONE (12:46)
[2016-10-15] MEDS ORDERED: Phenylephrine/NS 100 mCg/mL 10 mL Syringe IVPUSH ONE (12:46)
[2016-10-15] MEDS ORDERED: Ondansetron 2 mg/mL 2 mL Inj ONE (12:46)
[2016-10-15] MEDS ORDERED: Propofol 10,000 mCg/mL 20 mL Inj ONE (12:46)
[2016-10-15 13:30] LABS: APPEARANCE,URINE HAZY (CLEAR,HAZY); COLOR,URINE YELLOW (YELLOW); PH,URINE 5.5 (5.0-8.0)
--- NOTE | 2016-10-15 13:30 | NUR ---
Pt to OR Pt to OR, IV SL, 3L O2 NC, SPO2 mid 90's; no c/o SOB, VSS, BG 117. PO Levothyroxine, Metoprolol and Diltiazem and IV Doxycyline given earlier this AM, IV Heparin gtt turned off at 0600Am this morning per orders; pt NPO after 11am. BUN 51 & Creatinine 1.30, order to IV LR 80mls/hr started this AM. IV Tylenol given before leaving for OR, daughter at BS requesting to speak with re:procedure and signing consent, MD aware. Report given to OR and transporter before leaving the floor.
--- NOTE | 2016-10-15 13:30 | NUR ---
Pain Pt c/o pain 5/10 L hip area; order for IV Tylenol, dose given. Will monitor with frequent rounds.
[2016-10-15 13:31] LABS: OCCULT BLOOD,URINE MODERATE (NEGATIVE); UROBILINOGEN,URINE NORMAL (NORMAL)
--- NOTE | 2016-10-15 13:58 | DRSVH ---
PROCEDURE: X-RAY CHEST ONE VIEW ([id number]) INDICATIONS: check for CHF/Infection TECHNIQUE: One view of the chest was acquired. COMPARISON: [facility], CR, XR CHEST 1VW (PORTABLE), 10/14/2016, 4:47. FINDINGS: Surgical changes and devices: Stable position of left cardiac pacer and median sternotomy wires redem onstrated. Lungs and pleura: No pleural effusions or pneumothorax. Mild cephalization of pulmonary vasculature and perihilar indistinctness suspicious for CHF and not significantly changed. Mediastinum: Mediastinal contours appear normal. Heart size is enlarged. Bones and chest wall: No suspicious bony lesions. Overlying soft tissues appear unremarkable. IMPRESSION: Mild pulmonary edema likely related to CHF similar to prior study. Dictated by: Rohan Gunter [facility] Interpreted: Kavon Lira MD on 10/15/2016 at 13:57 Transcribed by: GERMÁN on 10/15/2016 at 13:57 Approved by: Kavon Lira M.D. on 10/15/2016 at 17:09
[2016-10-15] MEDS ORDERED: Lactated Ringer's 1,000 ML IV ONE ×2 (14:12→16:30)
[2016-10-15] MEDS ORDERED: Lactated Ringer's 1,000 ML IV SCH (14:56)
[2016-10-15] MEDS ORDERED: Lactated Ringer's 500 ML IV PRN (14:56)
--- NOTE | 2016-10-15 14:56 | PCM.HPANE ---
Patient Data Date of Service: Oct 15, 2016 (1230) Surgeon Admitting Provider:Ladonna Sánchez DO Attending Provider:Ladonna Sánchez DO Primary Care Physician:Quinton Ramos MD Other Provider: Reason for Visit Hip Fracture HIP FRACTURE Ht/WT & BMI Height (Feet): 6 Height (Inches): 0.00 Weight (Kilograms): 86.800 Body Mass Index 26.28 Allergies Coded Allergies: amiodarone (Verified Allergy, Severe, Hallucinations, 10/13/16) glimepiride (Verified Allergy, Intermediate, itching, 10/13/16) iodine (Verified Allergy, Intermediate, itching, 10/13/16) Shellfish (Verified Allergy, Mild, SHELLFISH: ITCHING, 10/13/16) gabapentin (Verified Allergy, Unknown, BLURRED VISION, 03/20/16) codeine (Verified Adverse Reaction, Intermediate, 03/20/16) Replaces CODEINE PHOSP Uncoded Allergies: SKIN AND MUCOUS MEMBRANE AGENTS (Allergy, Unknown, 04/10/04) CARDIAC DRUGS (Adverse Reaction, Unknown, 04/10/04) Past Anesthesia History Anesthesia History: Denies:: Anesthesia Reactions Diabetes History Hx Diabetes?: No Current Bedside Blood Glucose: 158 MRSA MRSA: No Medications Home Meds Incl Beta Dione: Yes Date Beta Dione Taken: Oct 15, 2016 Time Beta Dione Taken: 0830 Reported Medications Polyethylene Glycol 3350 17 Gm Powd.pack17 Gm PO DAILY #1 10/13/16 Acetaminophen 500 Mg Faypfu049 Mg PO Q6H PRN For Pain 10/13/16 Warfarin Sodium 2.5 Mg Tablet3.75 Mg PO , 30 Days Ref 0 03/20/16 Ezetimibe (Zetia)10 Mg Hrlvro71 Mg PO DAILY 30 Days Ref 0 05/27/15 Warfarin Sodium 2.5 Mg Tablet2.5 Mg PO , , Sat, 30 Days Ref 0 05/27/15 Sotalol HCl (Sotalol)160 Mg Bkpoxt346 Mg PO BID 30 Days Ref 0 05/27/15 Oxybutynin Chloride ER 10 Mg Tab.er.2410 Mg PO DAILY Ref 0 05/27/15 Metoprolol Tartrate 100 Mg Hnrjlb789 Mg PO BID 30 Days Ref 0 05/27/15 Aspirin 81 Mg Ycejwr99 Mg PO HS Ref 0 05/27/15 Lisinopril 40 Mg Spoqnx45 Mg PO BID 30 Days Ref 0 05/27/15 Levothyroxine 175 Mcg Ivqwls085 Mcg PO DAILY Ref 0 05/27/15 Rosuvastatin Calcium (Crestor)20 Mg Ssxzri99 Mg PO HS 30 Days Ref 0 05/27/15 Ubidecarenone (Co Q-10)100 Mg Vysonry700 Mg PO DAILY 05/27/15 Diltiazem (Cardizem)120 Mg Nsezle406 Mg PO BID Ref 0 05/27/15 Discontinued Reported Medications Phenazopyridine 200 Mg Wlyamj472 Mg PO DAILY PRN urine urgency Ref 0 05/27/15 Discontinued Scripts Enoxaparin (Lovenox)100 Mg/Ml [place]58 Mg SUBQ Q12H 5 Days Prov:Clyde Hopkins MD 03/21/16 [Acetaminophen] (Tylenol)325 MG TABLET No Conflict Lmmfh161 Mg PO Q6H PRN For Pain #30 Prov:Clyde Hopkins MD 03/21/16 History History of ENT Problems?: No HEENT History: Positive for:: Cataracts (REMOVAL BOTH EYES) Glaucoma Denies:: Dysphagia Sinus Problem Denture Type: None Teeth Condition: Within Normal Limits Hx of Heart Problems?: Yes Cardiovascular History: Positive for:: Cardiac Surgery (2 CABG 2ND TO REPAIR THE ONE FROM BEFORE) Chest Pain Edema (LEFT LEG BECAUSE OF BLOOD VESSALS REMOVED FOR CABG) Hypertension Irregular Heartbeat Pacemaker (TACHY-BLAISE SYNDROME) Denies:: Congestive Heart Failure Heart Murmur Thrombophlebitis Hx of Respiratory Problem?: Yes Respiratory History: Positive for:: Chest Surgery (CABG) Denies:: Asthma COPD Dyspnea Emphysema Hemoptysis Pneumonia Tuberculosis Hx Neurologic Problems?: Yes Neurological History: Positive for:: Dizziness (CHRONIC DIZZINESS WITH DIFFICULTY WITH BALANCE) Denies:: Alzheimer's Disease CVA Dementia Headaches Parkinson's Disease Seizures Hx of GI Problems?: Yes Hx of Problems?: Yes Genitourinary History: Positive for:: Kidney Stones Denies:: HX of Hemodialysis Urinary Tract Infection HX of Peritoneal Dialysis: No Male Hx: Positive for:: Prostate Problems (Takes Flomax) Denies:: Scrotal Mass Testicular Surgery Hx Musculoskeletal Problems?: Yes Musculoskeletal History: Positive for:: Back Injury Joint Replacement (ARTIFICAL KNEE ON HIS RIGHT) Musculoskeletal Trauma (fell today) Hx of Psycho/Social Problems?: No Psycho Social History: Denies:: Anxiety Bipolar Disorder Hx Depression Hx Surgeries?: Yes (R knee replacement, CABG x 2 (1983, 1999)) Hx Any Other Health Problems?: Yes Other History: Positive for:: Hospitalization 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) Denies:: Cancer History Blood Transfusions: Positive for:: Blood Transfusions Denies:: Blood Transfuse Reaction Hx Diabetes: NoBedside Blood Glucose: 158 Hx Alcohol Use: Yes (occasional beer, rare)Hx Substance Use: No Smoking Status: Former Smoker Have You Smoked inLast 12 mo: No (Quit in 1964) Stop/Bang Treated for Sleep Apnea?: No Do You Have a CPAP Machine?: No S-Snoring: Do You Snore Loudly: No T-Tired: feel tired, fatigued: Yes O-Obsered: Observed not breath: No P-Blood Pressure: treated: Yes B- Body Mass Index > 35 kg/m2: No A- Age over 50: Yes N- Neck Large Circumference: No G- Gender Male: Yes YAN Total Score: 3 Risk Assessment Category Category 1A: Patient has history of documented sleep apnea, and HAS NOT received any narcotic, sedative or anesthesia administration during this stay. Category 1B: Patient has history of documented sleep apnea, and HAS received any narcotic , sedative or anesthesia administration during this stay Category 2: Patient has SUSPECTED Obstructive Sleep Apnea, and HAS received any narcotic , sedative or anesthesia administration during this stay. Category 3: Patient has SUSPECTED Obstructive Sleep Apnea and HAS NOT received narcotic, sedative or anesthesia administration during this stay. Category 4: Outpatient in Procedural Areas with known sleep apnea or who screen positive for High Risk via the STOP/BANG questionnaire. Exam Exam Vital Signs Vital Signs Date Time Temp Pulse Resp B/P Pulse Ox O2 Delivery O2 Flow Rate FiO2 10/15/16 12:45 36.9 89 18 137/65 97 Nasal Cannula 3.00 10/15/16 09:26 83 10/15/16 09:00 Supplement Oxygen 10/15/16 08:41 36.9 91 18 143/66 97 Nasal Cannula 3.00 General Appearance: Alert, Oriented X3, Cooperative, No Acute Distress HEENT/AIRWAY: MP 2 Lungs: Clear to Auscultation Heart: Exam Unremarkable Meds/Labs/Diagnostics Admission Meds Current Medications Doxycycline Hyclate/Dextrose/ Water (Vibramycin Inj/ D5W Minibag Plus) 100 ml @ 50 mls/hr Q12H IV Last administered on 10/15/16t 08:50; Start 10/15/16 at 08: 30; Stop 10/15/16 at 10:21; Status DC Bedside Blood Glucose: 158 Labs Test 10/13/16 07:45 10/14/16 05:58 10/15/16 00:15 10/15/16 00:45 Hold Keyes Top Tube Received (Received) Troponin T 0.010ug/L (0.0-0.011) Pro-B-Type Natriuretic Peptide 889.8pg/mL (0-486) Urine Legionella pneumophilia Ag Negative (Negative) Prothrombin Time 13.4sec (8.1-12.5) Prothromb Time International Ratio 1.25ratio Activated Partial Thromboplast Time 111.1sec (22.8-33.0) Test 10/15/16 05:15 10/15/16 12:40 White Blood Count 15.1th/mm3 (3.8-10.1) Red Blood Count 3.15mil/mm3 (4.40-5.80) Hemoglobin 9.4g/dL (13.8-17.2) Hematocrit 29.6% (41.0-50.0) Mean Corpuscular Volume 94.0fL (81-100) Mean Corpuscular Hemoglobin 29.8pg (27.0-35.0) Mean Corpuscular Hemoglobin Concent 31.8% (32.0-37.0) Red Cell Distribution Width 14.0% (12.3-15.4) Platelet Count 111bil/L (150-400) Neutrophils (%) (Auto) 72.6% (40-74) Lymphocytes (%) (Auto) 15.3% (14-46) Monocytes (%) (Auto) 9.6% (4-12) Eosinophils (%) (Auto) 2.2% (0-5) Basophils (%) (Auto) 0.2% (0-3) Sodium Level 138mEq/L (134-144) Potassium Level 4.4mEq/L (3.5-5.2) Chloride Level 102mEq/L (97-108) Carbon Dioxide Level 24mmol/L (18-29) Blood Urea Nitrogen 51mg/dL (8-27) Creatinine 1.30mg/dL (0.76-1.27) Estimat Glomerular Filtration Rate 55mL/min (>59) Glucose Level 120mg/dL (60-99) Calcium Level 8.7mg/dL (8.5-10.1) Total Bilirubin 0.6mg/dL (0.0-1.2) Aspartate Amino Transf (AST/SGOT) 24U/L (0-50) Alanine Aminotransferase (ALT/SGPT) 10U/L (0-44) Alkaline Phosphatase 43U/L (25-160) Total Protein 5.3g/dL (6.4-8.4) Albumin 3.2g/dL (3.4-5.0) Procalcitonin 1.93ng/mL (0.00-0.08) Urine Color Yellow (YELLOW) Urine Appearance Hazy (CLEAR,HAZY) Urine pH 5.5 (5.0-8.0) Urine Specific [place] 1.025 (1.003-1.035) Urine Protein 30mg/dL (NEG,TRACE) Urine Glucose (UA) Negativemg/dL (NEGATIVE) Urine Ketones Negativemg/dL (NEGATIVE) Urine Occult Blood Moderate (NEGATIVE) Urine Nitrite Negative (NEGATIVE) Urine Bilirubin Negative (NEGATIVE) Urine Urobilinogen Normalmg/dL (NORMAL) Urine Leukocyte Esterase Small (NEGATIVE) Urine RBC 11-50/hpf (0-2) Urine WBC 11-50/hpf (0-5) Urine Epithelial Cells Occasional/hpf (NONE-MOD) Urine Crystals None seen (NONE SEEN) Urine Bacteria Moderate/hpf (NONE-FEW) Urine Hyaline Casts None/lpf (NONE) Urine Granular Casts None seen (NONE SEEN) Urine Waxy Casts None seen (NONE SEEN) Urine Red Blood Cell Casts None seen (NONE SEEN) Urine White Blood Cell Casts None seen (NONE SEEN) Urine Mucus Present (None Seen) Urine Trichomonas None seen (NONE SEEN) Urine Yeast None (NONE SEEN) Urinalysis Comment None Urine Culture Reflexed Indicated Plan Impression Patient chart reviewed, patient interviewed and anesthestic plan with risks, benefits, and alternatives discussed, and informed consent obtained. ASA Physical Status: ASA3 Severe Disease Anesthetic Plan: GA, Regional Block (fascia iliaca) Bene/Risks/Altern/Consents: Yes HP Complete Prior to Induction: Yes Lauri Bowers MD Oct 15, 2016 14:56
[2016-10-15] MEDS ORDERED: Ondansetron 2 mg/mL 2 mL Inj IVPUSH PRN (15:00)
[2016-10-15] MEDS ORDERED: Atropine 0.4 mg/mL Inj IVPUSH PRN (15:00)
[2016-10-15] MEDS ORDERED: Phenylephrine 10,000 mCg/mL Inj IVPUSH PRN (15:00)
[2016-10-15] MEDS ORDERED: MetoCLOpramide 5 mg/mL 2 mL Inj IVPUSH PRN (15:00)
[2016-10-15] MEDS ORDERED: EPHEDrine Sulfate 50 mg/mL Inj IVPUSH PRN (15:00)
[2016-10-15] MEDS ORDERED: Dexamethasone 4 mg/mL Inj IVPUSH PRN (15:00)
[2016-10-15] MEDS ORDERED: fentaNYL-PF 50 mCg/mL 2 mL Inj IVPUSH PRN (15:00)
[2016-10-15] MEDS ORDERED: cefTRIAXone Inj 1,000 MG in Dextrose 5% Minibag Plus 50 ML IV SCH (15:25)
--- NOTE | 2016-10-15 18:19 | PCM.ANEP1 ---
Post Anesthesia Phase 1 PACU Phase 1 Assessment Date of Service: Oct 15, 2016 (1230) Vital Signs Vital Signs Date Time Temp Pulse Resp B/P Pulse Ox O2 Delivery O2 Flow Rate FiO2 10/15/16 18:05 82 13 185/90 98 Simple Mask 8 10/15/16 17:51 84 17 125/58 98 Simple Mask 8 10/15/16 17:44 76 15 132/55 98 Simple Mask 8 10/15/16 17:39 36.3 76 22 130/53 98 Simple Mask 8 10/15/16 12:45 36.9 89 18 137/65 97 Nasal Cannula 3.00 Anesthetic Administered: GA Level of Alertness: Sleepy, easy to arouse SAL's with Equal Strength: Yes Pain: Yes Pain Scale Score: 5 Nausea or Vomiting: No Oxygen Delivery: Simple Mask Lungs: Clear to Auscultation Dermatome Level: Full Sensation Complications: No Lauri Bowers MD Oct 15, 2016 18:19
--- NOTE | 2016-10-15 18:45 | NUR ---
Return from OR 1845 pt return from OR; IV SL, 2L O2 NC, no c/o pain, VSS, PPP bilaterally, Alert to self and arousable. R hip and thigh covered in surgical dressing (ABD with Hypofix tape) CDI, ice applied to leg, no c/o pain. Pt left to OR with one hearing aide in container and returned with 1 hearing in container, placed in right ear upon return to room. 1 hearing aide still missing per OR transporter, none found in bedding, daughter made aware of situation. Pt tucked and report given to NOC shift RN.
--- NOTE | 2016-10-15 18:51 | DRSVH ---
PROCEDURE: X-RAY PELVIS W/LAT HIP (RT) ([id number]) INDICATIONS: POST SURGERY TECHNIQUE: AP pelvis with lateral view of the right hip. COMPARISON: [facility], CR, XR PELVIS W LATERAL HIP RT, 10/13/2016, 6:53. FINDINGS: Bones: There are interval postsurgical changes status post open reduction and internal fixation of t he comminuted proximal right femoral intertrochanteric fracture. There is an intramedullary [place] with in the right femur partially visualized at proximal telescoping screw through the femoral neck. Left hip prosthesis is redemonstrated. There are old fractures of the right superior and inferior pubic rami. There is diffuse osteopenia. Soft tissues: The visualized bowel gas pattern is normal. There are scattered vascular calcificatio ns. IMPRESSION: 1. Postsurgical changes status post ORIF of right femoral intertrochanteric fracture. Dictated by: Vinay Sloan M.D. on 10/15/2016 at 18:48 Approved by: Vinay Sloan M.D. on 10/15/2016 at 18:50
--- NOTE | 2016-10-15 19:03 | DRSVH ---
PROCEDURE: X-RAY RIGHT FEMUR, TWO VIEWS ([id number]) INDICATIONS: POST SURGERY TECHNIQUE: 4 views of the femur were acquired. COMPARISON: [facility], CR, XR FEMUR 2VW RT, 10/13/2016, 10:29. FINDINGS: Bones: 4 views of the right femur demonstrate interval open reduction and internal fixation of a com minuted right femoral intertrochanteric fracture with placement of an intramedullary [place], distal fixa tion screw, and proximal telescoping screw. There is improved alignment of the proximal femoral frac ture. A right knee prosthesis is redemonstrated. Soft tissues: There are expected overlying postsurgical changes. IMPRESSION: 1. Postsurgical changes status post ORIF of comminuted right femoral intertrochanteric fracture. Dictated by: Vinay Sloan M.D. on 10/15/2016 at 19:00 Approved by: Vinay Sloan M.D. on 10/15/2016 at 19:02
--- NOTE | 2016-10-15 20:55 | PCM.PNMED ---
Subjective Date of Service Oct 15, 2016 Subjective Patient is seen and examined this a.m. prior to his surgery. He appears to be getting a little bit restless, asking for me to adjust his bed several times. His daughter Sherlyn came to the room this a.m. her questions are answered. She is agreeable to very controlled pain management due to his confusion. Tylenol IV as ordered this a.m. he is on nothing by mouth diet, he does not appear to be appreciating that. He is less confused than yesterday. Asking when they are going to do surgery on him. Once again he denies shortness of breath, cough , abdominal pain and chest pain Exam Vital Signs Vital Sign - Last Date Time Temp Pulse Resp B/P Pulse Ox O2 Delivery O2 Flow Rate FiO2 10/15/16 18:51 Supplement Oxygen 10/15/16 18:49 36.7 79 18 135/70 95 3.00 Intake and Output 10/14/16 10/14/16 10/15/16 Cumulative From/Thru 15:00 23:00 07:00 10/13/16 06:43 - 10/15/16 06:14 Intake Total 1141 ml 504 ml 1895 ml Output Total 250 ml 650 ml 2100 ml Balance 891 ml -146 ml -205 ml Intake Oral 860 ml 200 ml 1310 ml IV Total 281 ml 304 ml 585 ml Output Urine Total 250 ml 650 ml 2100 ml # Bowel Movements 0 0 Exam General: NAD, laying in bed, some what dyspneic male HEENT: NCAT, missing dentition Eyes: [place] conjunctivae. No ptosis, PERRL Neck: No masses, trachea midline, no thyromegaly Lungs: CTA with normal respiratory effort, no crackles or wheezes anteriorly CV: Grade 1+ systolic murmur, regular rate GI: Soft, non-tender with no hepatosplenomegaly MSK: no digital cyanosis, able to move her toes on both feet, able to lift left lower extremity against gravity. Skin: Warm and dry. Psych: Appears mildly anxious Neurological: CN II-12 grossly normal, gagging deferred. Withdraws to Babinski is. Unable to follow commands for alternating hands and finger to nose test. Unable to elicit reflexes in patellar and Achilles. Oriented to person but not to place and time IVs and Medications IV Fluids He is on 80 mL of LR Medications Reviewed: Medications were reviewed in detail Lab and Diagnostics Result Diagram: 10/15/16 0515 10/15/16 0515 X-Rays, CTs and MRIs [facility] [place] [address] Patient Name: SCOTT PEARL MR#: [id number] Location: [facility] Ordering Phys: Ladonna Sánchez DO Date of Service: 10/15/16 1032 PROCEDURE: X-RAY CHEST ONE VIEW ([id number]) INDICATIONS: check for CHF/Infection TECHNIQUE: One view of the chest was acquired. COMPARISON: [facility], CR, XR CHEST 1VW (PORTABLE), 10/14/2016, 4: 47. FINDINGS: Surgical changes and devices: Stable position of left cardiac pacer and median sternotomy wires redemonstrated. Lungs and pleura: No pleural effusions or pneumothorax. Mild cephalization of pulmonary vasculature and perihilar indistinctness suspicious for CHF and not significantly changed. Mediastinum: Mediastinal contours appear normal. Heart size is enlarged. Bones and chest wall: No suspicious bony lesions. Overlying soft tissues appear unremarkable. IMPRESSION: Mild pulmonary edema likely related to CHF similar to prior study. Dictated by: Rohan Gunter RRA Interpreted: Kavon Lira MD on 10/15/2016 at 13 :57 Transcribed by: GERMÁN on 10/15/2016 at 13:57 Approved by: Kavon Lira M.D. on 10/15/2016 at 17:09 [facility] Diagnostic Imaging Department [place], [place] [id number] Patient Name: SCOTT PEARL MR#: [id number] Location: [facility] Ordering Phys: Tanvir Nicholson MD Date of Service: 10/15/16 1745 PROCEDURE: X-RAY RIGHT FEMUR, TWO VIEWS ([id number]) INDICATIONS: POST SURGERY TECHNIQUE: 4 views of the femur were acquired. COMPARISON: [facility], CR, XR FEMUR 2VW RT, 10/13/2016, 10:29. FINDINGS: Bones: 4 views of the right femur demonstrate interval open reduction and internal fixation of a comminuted right femoral intertrochanteric fracture with placement of an intramedullary saskia, distal fixation screw, and proximal telescoping screw. There is improved alignment of the proximal femoral fracture. A right knee prosthesis is redemonstrated. Soft tissues: There are expected overlying postsurgical changes. IMPRESSION: 1. Postsurgical changes status post ORIF of comminuted right femoral intertrochanteric fracture. Dictated by: Vinay Sloan M.D. on 10/15/2016 at 19:00 Approved by: Vinay Sloan M.D. on 10/15/2016 at 19:02 [facility] [place] [address] Patient Name: SCOTT EPARL MR#: [id number] Location: [facility] Ordering Phys: Brett Luqeu MD Date of Service: 10/13/16 1543 PROCEDURE: US BILATERAL DUPLEX DOPPLER IMAGING OF THE CAROTIDS ([id number]) INDICATIONS: R carotid bruit TECHNIQUE: Color and pulse Doppler interrogation was performed of both carotid systems, with image documentation and velocity measurements. COMPARISON: None. FINDINGS: All stenosis calculations are based on NASCET criteria. Right side: Brachial blood pressure: 127/67 mm Hg. Common carotid artery peak systolic velocity: 63 cm/sec. Internal carotid artery peak systolic velocity: 38 cm/sec. Internal carotid artery end diastolic velocity: 12 cm/sec. External carotid artery peak systolic velocity: 64 cm/sec. ICA/CCA peak systolic ratio: 0.6. Deluna scale imaging description: Mild calcific and soft plaque Percent internal carotid artery stenosis: Less than 50% stenosis. Vertebral artery: Flow direction is antegrade. Left side: Brachial blood pressure: 150/90 mm Hg. Common carotid artery peak systolic velocity: 125 cm/sec. Internal carotid artery peak systolic velocity: 87 cm/sec. Internal carotid artery end diastolic velocity: 27 cm/sec. External carotid artery peak systolic velocity: 36 cm/sec. ICA/CCA peak systolic ratio: 0.7. Deluna scale imaging description: Mild calcific and soft plaque Percent internal carotid artery stenosis: Less than 50% stenosis. Vertebral artery: Flow direction is antegrade. IMPRESSION: Quality of visualization is somewhat limited by patient body habitus, positioning of the vessels and calcific plaque producing shadowing. A definite high-grade stenosis is not present. Estimated current maximal stenosis is considered to be less than 50% but elective followup MR angiographic imaging may be warranted depending on the clinical status given the suboptimal quality of visualization. Dictated by: Kavon Lira M.D. on 10/13/2016 at 18:45 Approved by: Kavon Lira M.D. on 10/13/2016 at 18:48 [facility] Diagnostic Imaging Department [place], [place] [id number] Patient Name: SCOTT PEARL MR#: [id number] Location: [facility] Ordering Phys: German Richardson MD Date of Service: 10/13/16 0939 PROCEDURE: X-RAY RIGHT FEMUR, TWO VIEWS ([id number]) INDICATIONS: trauma TECHNIQUE: 3 views of the femur were acquired. COMPARISON: None. FINDINGS: Bones: Moderately comminuted intertrochanteric right hip fracture but no dislocations. No suspicious bony lesions. Right total knee arthroplasty is partially visualized in the portion included on this study is not disrupted. Soft tissues: No suspicious soft tissue calcifications or masses. IMPRESSION: The comminuted intertrochanteric right hip fracture is in near anatomic alignment of the lesser trochanter is fractured at its base and displaced cephalad to lie medial to the femoral neck. Prior right total knee arthroplasty partially visualized by this study. That device does not appear disrupted. Dictated by: Kavon Lira M.D. on 10/13/2016 at 11:14 Approved by: Kavon Lira M.D. on 10/13/2016 at 11:15 [facility] Diagnostic Imaging Department [place], [place] [id number] Patient Name: SCOTT PEARL MR#: [id number] Location: [facility] Ordering Phys: German Richardson MD Date of Service: 10/13/16 0636 PROCEDURE: X-RAY CHEST ONE VIEW, PORTABLE ([id number]) INDICATIONS: trauma TECHNIQUE: One view of the chest was acquired. COMPARISON: [facility], , CHEST 1VW (PORTABLE), 05/24/2012, 4: 46. [facility], , CHEST 2VW, 12/10/2011, 10:06. FINDINGS: Surgical changes and devices: Sternotomy wires, pacemaking device and dual chamber leads stable over time. Lungs and pleura: No pleural effusions or pneumothorax. Lungs are abnormal with a chronic mild interstitial prominence which may reflect a prior smoking history.. Mediastinum: Mediastinal contours appear normal. Heart size is at or just above the upper limits of normal but no acute CHF is suspected. Bones and chest wall: No suspicious bony lesions. Overlying soft tissues appear unremarkable. IMPRESSION: Stable postsurgical change and chronic interstitial prominence, no definite acute disease. Dictated by: Kavon Lira M.D. on 10/13/2016 at 8:21 Approved by: Kavon Lira M.D. on 10/13/2016 at 8:22 [facility] [place] [address] Patient Name: SCOTT PEARL MR#: [id number] Location: [facility] Ordering Phys: German Richardson MD Date of Service: 10/13/16 0636 PROCEDURE: X-RAY PELVIS W/LAT HIP (RT) ([id number]) INDICATIONS: trauma TECHNIQUE: AP pelvis with lateral view(s) of the right hip(s). COMPARISON: [facility], CR, XR PELVIS W LATERAL HIP RT, 05/09/2016 , 13:04. [facility], CR, XR PELVIS W LATERAL HIP RT, 04/11/2016, 11:08. FINDINGS: Bones: No dislocations. Pelvic ring appears intact. No suspicious bony lesions. There is a comminuted intertrochanteric right hip fracture and also a previously present anterior column right obturator ring fracture superiorly in what appears to be a minimally displaced previously present right inferior obturator ring fracture. Prior left hip arthroplasty. Soft tissues: The visualized bowel gas pattern is normal. No suspicious soft tissue calcifications. IMPRESSION: Prior left hip arthroplasty stable, prior obturator ring fractures on the right, new comminuted intertrochanteric right hip fracture. Dictated by: Kavon Lira M.D. on 10/13/2016 at 8:22 Approved by: Kavon Lira M.D. on 10/13/2016 at 8:23 [facility] [place] [address] Patient Name: SCOTT PEARL MR#: [id number] Location: [facility] Ordering Phys: Med Phillip MD Date of Service: 10/14/16439 PROCEDURE: X-RAY CHEST ONE VIEW, PORTABLE ([id number]) INDICATIONS: sob TECHNIQUE: One view of the chest was acquired. COMPARISON: [facility], CR, XR CHEST 1VW (PORTABLE), 10/13/2016, 6: 53. FINDINGS: Surgical changes and devices: Status post CABG procedure. Lungs and pleura: No pleural effusions or pneumothorax. Mild cephalization of pulmonary vasculature and perihilar indistinctness suspicious for CHF. Mediastinum: Mediastinal contours appear normal. Heart size is enlarged. Bones and chest wall: No suspicious bony lesions. Overlying soft tissues appear unremarkable. IMPRESSION: Mild cephalization pulmonary vasculature and perihilar indistinctness which in the appropriate clinical setting could represent CHF. Dictated by: Filomena Diaz MD, PhD on 10/14/2016 at 9:24 Approved by: Filomena Diaz MD, PhD on 10/14/2016 at 9:25 [facility] [place] [address] Patient Name: SCOTT PEARL MR#: [id number] Location: [facility] [place] Ordering Phys: Med Phillip MD Date of Service: 10/14/16439 PROCEDURE: X-RAY CHEST ONE VIEW, PORTABLE ([id number]) INDICATIONS: sob TECHNIQUE: One view of the chest was acquired. COMPARISON: [facility], , XR CHEST 1VW (PORTABLE), 10/13/2016, 6: 53. FINDINGS: Surgical changes and devices: Status post CABG procedure. Lungs and pleura: No pleural effusions or pneumothorax. Mild cephalization of pulmonary vasculature and perihilar indistinctness suspicious for CHF. Mediastinum: Mediastinal contours appear normal. Heart size is enlarged. Bones and chest wall: No suspicious bony lesions. Overlying soft tissues appear unremarkable. IMPRESSION: Mild cephalization pulmonary vasculature and perihilar indistinctness which in the appropriate clinical setting could represent CHF. Dictated by: Filomena Diaz MD, PhD on 10/14/2016 at 9:24 Approved by: Filomena Diaz MD, PhD on 10/14/2016 at 9:25 Assessment & Plan Right intertrochanteric fracture, secondary to fall, present on admission: -- Consult orthopedics, Dr. Nicholson is aware. She would like for us to consult cardiology for cardiac clearance -- Dr. Childers was a consult ed, he has seen the patient. I ordered a carotid duplex ultrasound, reviewed the echo from July this year. He feels no additional echo is required as patient had no symptoms since his last echo. He also reviewed the cardiac medications and the pacemaker history and last interrogation date. For now he says that we should do patient both beta blockers. We appreciate his recommendations. -- Hold Coumadin, trend INR. INR less than 1.5 today -- Plan to give cardiac medications prior to surgery -- Pain control with morphine when necessary and IV Tylenol -- Discussed the situation with Dr. Nicholson, she is agreeable to performing the surgery tomorrow afternoon in the light of a new concern for respiratory infection, patient's confusion this a.m. she is agreeable to starting heparin drip just for overnight. Asked staff to discontinue the heparin drip at 6 AM -- Patient is started on antibiotics to cover for bronchitis/pneumonia -- Patient is not clinically in CHF regardless of the radiology read. BNP was slightly elevated. 20 mg IV Lasix 1 time is administered -- Patient is scheduled to undergo surgery today, late in the afternoon. Stop heparin drip at 6 AM -- Plan to start heparin drip again 48 hours from today on 10/17 Respirator infection: -- Mildly elevated temperatures, elevated white count, mild elevation in pro- calcitonin -- Doxycycline IV antibiotic is initiated -- We will order follow-up respiratory panel, urine strep and Legionella: I will reassess her negative, pro-calcitonin is 1.9 today -- Repeat chest x-ray in 10/15 showed mild CHF once again -- We will continue to monitor Elevated pro-calcitonin, elevated white count: -- Ordered a urine analysis this a.m. as this may be causing his confusion: Positive for bacteria and white cells, leukocyte esterase: He started on ceftriaxone, later discontinued as surgery is putting him on Ancef -- We will follow the cultures Chronic conditions: CAD: Continue home medications gerd: Pantoprazole 20 mg daily Hypertension: Continue meds BPH: Continue meds Hypothyroidism: Continue home meds CODE STATUS: DO NOT RESUSCITATE/DO NOT INTUBATE Alternate decision-maker: Daughter Sherlyn DVT prophylaxis: Subtherapeutic INR, heparin drip Disposition: Possible the second postoperative day 3, pending orthopedic approval, to either home with home care or snf For rehabilitation Pain Evaluation: Adequate Pain Control VTE Prophylaxis: Sub-Q Heparin (Unfractionated) (held this morning) VTE Mechanical Devices: Intermittant Pneumatic CD Resuscitation Status: DNR/DNI:Do Not Resuscitate/Intubate Ladonna Sánchez DO Oct 15, 2016 20:55
[2016-10-15] MEDS: Doxycycline Inj 100 MG in Dextrose 5% Minibag Plus 100 ML IV SCH (22:46)
[2016-10-15] MEDS: Ketorolac 15 mg/mL Inj IVPUSH PRN (22:50)
--- NOTE | 2016-10-15 23:53 | OP ---
[address] [address] OPERATIVE REPORT PATIENT: SCOTT PEARL : 1930 MR#: [id number] ADMIT: 10/13/2016 JOB ID: [id number] DATE OF SURGERY: 10/15/2016 PREOPERATIVE DIAGNOSIS(ES): Comminuted right intertrochanteric-subtrochanteric femoral shaft fracture. ICD-! 0 CODE S72.141A / S72.21XA POSTOPERATIVE DIAGNOSIS(ES): Comminuted right intertrochanteric-subtrochanteric femoral shaft fracture. ICD- 10 CODE S72.141A / S72.21XA PROCEDURE: Open reduction, internal fixation, comminuted right intertrochanteric-subtrochanteric femoral fracture with a locked intramedullary saskia. CPT code 66423. IMPLANTS UTILIZED: Synthes trochanteric femoral nail, 420 mm length by 12 mm diameter saskia, 125 degrees angle. 105 mm compression screw and 52 mm distal interlocking screw. SURGEON: Tanvir Nicholson MD. ROUGH AND TRUEING MACHINE OPERATOR: Shaquille Vazquez PA-C. Shaquille Vazquez was an integral portion of the procedure to help with positioning, reduction and retraction to facilitate fracture treatment. ANESTHESIA: General. Also, with supplemental regional block for postoperative analgesia. ESTIMATED BLOOD LOSS: 50 mL. DRAINS: None. COMPLICATIONS: None. SPONGE AND NEEDLE COUNT: Correct. SPECIMEN: No specimen to pathology. INDICATIONS: This is an 86-year-old male with multiple medical problems, who fell on a ground level fall sustaining a right intertrochanteric-subtrochanteric comminuted fracture. The patient had been on anticoagulation with Coumadin and required his PT and INR to be reversed, and he also had some pulmonary issues as well as a urinary tract infection, and was given some preoperative antibiotics. We finally obtained preoperative medical clearance to proceed with surgery today. PROCEDURE IN DETAIL: Under adequate general anesthetic, as well as a regional nerve block for pain management, the patient was placed on the fracture table with the right leg in a traction boot and the left leg in the other fracture boot, and the body was positioned in a scissor fashion to allow for visualization of the fracture. The fracture was subsequently reduced and documented on image intensification. The right hip was then prepped and draped in sterile fashion. After appropriate time-out was called an incision was fashioned just proximal to the tip of the greater trochanter. Incision was carried down to the tensor fascia adrian. Utilizing blunt dissection, the tip of the greater trochanter was exposed. A guide pin was then introduced with lateral trochanteric femoral entry point. The guide pin needed to be repositioned initially since it was slightly too posterior. Once it was in good position, it was subsequently over-reamed to open the cortex. A ball-tipped guide was then placed down the femoral shaft. Please note, the patient also had a total knee replacement and care was taken not to overstretch the knee joint. The guide pin was then over-reamed up to 13.5 mm sequentially to fit a 12 mm saskia. The saskia was measured and felt to be 420 mm to be the best fit. The 12 mm 125 degrees angle right Synthes trochanteric femoral nail was then placed down the femoral canal. Image intensification confirmed good position of the saskia in AP and lateral views. The guide pin was subsequently removed from the femur. Attention was next turned to the proximal compression screw placement. Incision was fashioned over the lateral aspect of the femur. Incision was carried down through the tensor fascia adrian. The alignment jig was placed on the nail guide. It was then positioned down over the lateral aspect of the femur. An incision was made over the lateral thigh down through the tensor fascia adrian and vastus lateralis to the bone. The guide pin was introduced into the femoral neck and head in the central position. It was measured and then drilled. A 105 mm compression screw was then placed in position on AP and lateral views. Image intensification confirmed good position of the screw in AP and lateral views. The saskia itself was locked. Once it was locked the alignment jig was removed. Attention was next turned to the distal interlock. After perfect circles were made with the image intensification a small incision was fashioned over the lateral aspect of the femur. Incision was carried down to the tensor fascia adrian. The vastus lateralis muscle was swept off the lateral aspect of the femur. Utilizing the radiolucent drill guide, the drill was then tapped into position. It was then drilled across to the opposite cortex of the femur. It was measured and a 52 mm cortical fully threaded screw was then placed as a distal interlock. Image intensification confirmed good position of the depth of the distal interlock screw in AP and lateral views. Please note that care was taken to position the foot back into a neutral position before placing the distal interlock screw. Permanent x-rays were taken with image intensification. The wounds were thoroughly irrigated with antibiotic solution. The two smaller incisions were closed in the deep layer along the fascia with 0-Vicryl and subcutaneous layers with 2-0 Vicryl. The skin was reapproximated with gunnar. The proximal incision after irrigation was closed along the tensor fascia adrian with 1-0 Vicryl [id number] sutures. Subcutaneous layers were closed with interrupted sutures of 0 and 2-0 Vicryl, and skin was reapproximated with gunnar. Xeroform dry sterile dressings were applied. The patient was carefully taken off the fracture table and placed back in his bed in stable condition. Permanent x-rays were taken in recovery room and noted that the fracture was in good position. Sponge and needle count correct. No complications. PLAN: The patient may begin partial weightbearing about 50% of his body weight starting tomorrow. Physical therapy should start with partial weightbearing and at least out of bed to chair tomorrow. The patient needs to be covered for DVT prophylaxis and bridged with either subcutaneous heparin or Lovenox since he does have a history of atrial fibrillation. He should also receive some postoperative antibiotics. The patient is on the hospitalist service currently and they will monitor his anticoagulation. He also has a urinary tract infection and will need some additional coverage for his urinary tract infection. For coverage for his orthopedic procedure would suggest Ancef 2 g IV q.8 h. for two doses and any additional antibiotics would need to be for his urinary tract infection. The patient will need to be seen in followup for staple removal in two weeks with additional x-rays. I will see him in follow-up at the 6 week post-op visit with xrays. CC: [facility]- Orthopedics CC: Zuly Zhou
[2016-10-16] VITALS (9 sets, daily range): BP systolic 115–162; BP diastolic 50–69; PULSE 65–82; RESP 16–20; O2SAT 94–100
[2016-10-16] MEDS: Acetaminophen IV 1,000 MG in IV Premix 1 EACH IV PRN ×2 (01:17→14:45)
[2016-10-16] MEDS: CeFAZolin Inj 2,000 MG in Dextrose 5% 50 ML IV SCH ×2 (02:32→09:10)
--- NOTE | 2016-10-16 02:43 | NUR ---
Bedrest Pt on bedrest until pt eval. Guzman draining pale yellow urine to gravity. IVF infusing LR between doses of ABX/IV APAP. Toradol also given PRN for pain. Ice to incision site, no edema in legs, CSM intact, dressing to R hip CDI. Pt generally comfortable, he does report stabbing pain especially increased with movement. Pt alert, hearing aid removed and in container, pt AO x2, questions time of day and TV controls several times. Friend named Anais called to wish pt speedy recovery while pt was asleep. Pt remains SaO2 99-100%, wean off nasal cannula. Care continues.
[2016-10-16 05:50] LABS: BASOPHILS % (AUTO) 0 % (0-3); EOSINOPHILS % (AUTO) 0.1 % (0-5); MONOCYTES % (AUTO) 7.6 % (4-12); Mean Corpuscular Hemoglobin 29.9 pg (27.0-35.0); Mean Corpuscular Volume 93.7 fL (81-100); NEUTROPHILS % (AUTO) 83.6 % (40-74); Platelet Count 132 bil/L (150-400)
[2016-10-16 05:53] LABS: INR 1.05 ratio
--- NOTE | 2016-10-16 09:10 | PCM.PNORTH ---
Subjective Date of Service: Oct 16, 2016 Visit Information: Reason for Visit Hip Fracture Surgery/Surgery Date SYNTHES R HIP LONG NAIL 10/15/16 Post-Op Day # 1 Date of Admission: Oct 13, 2016 at 09:37 Hospital Day # Subjective Patient states he is having some discomfort in his hip. He is more concerned with his disorientation - he states he was unable to tell if it was night or day and is not sure when he first arrived in the room he is currently in. Postop General: No Shortness of Breath, No Chest Pain Pain Management: PO, IV Push Objective Exam Objective Patient laying in bed Vital Signs and I/O Vital Sign - Last Date Time Temp Pulse Resp B/P Pulse Ox O2 Delivery O2 Flow Rate FiO2 10/16/16 07:57 36.6 68 18 162/68 96 Room Air 10/16/16 05:23 3.00 Intake and Output 10/15/16 10/15/16 10/16/16 Cumulative From/Thru 15:00 23:00 07:00 10/13/16 06:43 - 10/16/16 06:32 Intake Total 1000 ml 650 ml 882 ml 4427 ml Output Total 260 ml 950 ml 3310 ml Balance 1000 ml 390 ml -68 ml 1117 ml Intake Oral 275 ml 1585 ml IV Total 1000 ml 650 ml 607 ml 2842 ml Output Urine Total 210 ml 950 ml 3260 ml Estimated Blood Loss 50 ml 50 ml # Bowel Movements 0 0 Lab & Micro Results Laboratory Tests Test 10/15/16 12:40 10/16/16 05:10 Urine Color Yellow (YELLOW) Urine Appearance Hazy (CLEAR,HAZY) Urine pH 5.5 (5.0-8.0) Urine Specific [place] 1.025 (1.003-1.035) Urine Protein 30mg/dL (NEG,TRACE) Urine Glucose (UA) Negativemg/dL (NEGATIVE) Urine Ketones Negativemg/dL (NEGATIVE) Urine Occult Blood Moderate (NEGATIVE) Urine Nitrite Negative (NEGATIVE) Urine Bilirubin Negative (NEGATIVE) Urine Urobilinogen Normalmg/dL (NORMAL) Urine Leukocyte Esterase Small (NEGATIVE) Urine RBC 11-50/hpf (0-2) Urine WBC 11-50/hpf (0-5) Urine Epithelial Cells Occasional/hpf (NONE-MOD) Urine Crystals None seen (NONE SEEN) Urine Bacteria Moderate/hpf (NONE-FEW) Urine Hyaline Casts None/lpf (NONE) Urine Granular Casts None seen (NONE SEEN) Urine Waxy Casts None seen (NONE SEEN) Urine Red Blood Cell Casts None seen (NONE SEEN) Urine White Blood Cell Casts None seen (NONE SEEN) Urine Mucus Present (None Seen) Urine Trichomonas None seen (NONE SEEN) Urine Yeast None (NONE SEEN) Urinalysis Comment None Urine Culture Reflexed Indicated White Blood Count 12.4th/mm3 (3.8-10.1) Red Blood Count 2.71mil/mm3 (4.40-5.80) Hemoglobin 8.1g/dL (13.8-17.2) Hematocrit 25.4% (41.0-50.0) Mean Corpuscular Volume 93.7fL (81-100) Mean Corpuscular Hemoglobin 29.9pg (27.0-35.0) Mean Corpuscular Hemoglobin Concent 31.9% (32.0-37.0) Red Cell Distribution Width 13.8% (12.3-15.4) Platelet Count 132bil/L (150-400) Neutrophils (%) (Auto) 83.6% (40-74) Lymphocytes (%) (Auto) 8.5% (14-46) Monocytes (%) (Auto) 7.6% (4-12) Eosinophils (%) (Auto) 0.1% (0-5) Basophils (%) (Auto) 0% (0-3) Prothrombin Time 11.2sec (8.1-12.5) Prothromb Time International Ratio 1.05ratio Sodium Level 140mEq/L (134-144) Potassium Level 4.9mEq/L (3.5-5.2) Chloride Level 104mEq/L (97-108) Carbon Dioxide Level 23mmol/L (18-29) Blood Urea Nitrogen 43mg/dL (8-27) Creatinine 0.96mg/dL (0.76-1.27) Estimat Glomerular Filtration Rate 79mL/min (>59) Glucose Level 161mg/dL (60-99) Calcium Level 8.5mg/dL (8.5-10.1) Total Bilirubin 0.5mg/dL (0.0-1.2) Aspartate Amino Transf (AST/SGOT) 25U/L (0-50) Alanine Aminotransferase (ALT/SGPT) 11U/L (0-44) Alkaline Phosphatase 43U/L (25-160) Total Protein 5.4g/dL (6.4-8.4) Albumin 3.4g/dL (3.4-5.0) Microbiology 10/15/16 Adenovirus DNA (PCR) - Final, Complete Not Detected 10/15/16 Coronavirus 229E PCR - Final, Complete Not Detected 10/15/16 Coronavirus HKU1 PCR - Final, Complete Not Detected 10/15/16 Coronavirus NL63 PCR - Final, Complete Not Detected 10/15/16 Coronavirus OC43 PCR - Final, Complete Not Detected 10/15/16 Influenza Type A (PCR) - Final, Complete Not Detected 10/15/16 Influenza Type B (PCR) - Final, Complete Not Detected 10/15/16 Human Metapneumovirus (PCR) (JULISA) - Final, Complete Not Detected 10/15/16 Rhinovirus (PCR)(JULISA) - Final, Complete Not Detected 10/15/16 Parainfluenza Virus Type 1 (PCR) - Final, Complete Not Detected 10/15/16 Parainfluenza Virus Type 2 (PCR) - Final, Complete Not Detected 10/15/16 Parainfluenza Virus Type 3 (PCR) - Final, Complete Not Detected 10/15/16 Parainfluenza Virus Type 4 (NAAT) - Final, Complete Not Detected 10/15/16 Respiratory Syncytial Virus (PCR)GA - Final, Complete Not Detected 10/15/16 Chlamydia pneumoniae (PCR) - Final, Complete Not Detected 10/15/16 Mycoplasma pneumoniae DNA Detection - Final, Complete 10/15/16 Urine Culture - Preliminary, Resulted No growth to date Result Diagram: 10/16/16 0510/16/16 05 General Appearance: Alert, Oriented X3, Cooperative, No Acute Distress Extremities: Distal Pulses Palpable, Warm, No Compartment Syndrom Noted Postop Sensory Motor: Distal Motor Intact, Movement in Toes, Distal Sensation Intact, NVI Distally SURGICAL WOUND : Wound Location/Description Perioperative dressings clean dry and intact Activity: Ambulate with PT (50% WB with a FWW), Bedrest Catheters: Urethral 2 Way Guzman Assessment & Plan Problems: (1) CAD (coronary artery disease) Qualifiers: Coronary Disease-Associated Artery/Lesion type: [place] artery [place] vs. transplanted heart: [place] heart Associated angina: without angina Qualified Code: I25.10 - Atherosclerotic heart disease of [place] coronary artery without angina pectoris Status: Chronic ICD Code: I25.10 (2) Carotid disease, bilateral Status: Chronic ICD Code: I77.9 (3) Paroxysmal atrial fibrillation Status: Chronic ICD Code: I48.0 (4) History of permanent cardiac pacemaker placement Status: Chronic ICD Code: Z95.0 (5) Hypertension Qualifiers: Hypertension type: essential hypertension Qualified Code: I10 - Essential (primary) hypertension Status: Chronic ICD Code: I10 (6) Sick sinus syndrome Status: Chronic ICD Code: I49.5 (7) PAD (peripheral artery disease) Status: Chronic ICD Code: I73.9 VTE Prophylaxis: Sub-Q Heparin (Unfractionated) (held this morning) Resuscitation Status: DNR/DNI:Do Not Resuscitate/Intubate Sujatha Luke PA-C Oct 16, 2016 09:10
[2016-10-16] MEDS: Diltiazem CD 120 mg ER24 Capsule PO SCH ×2 (09:14→20:42)
[2016-10-16] MEDS: Ketorolac 15 mg/mL Inj IVPUSH PRN (09:14)
[2016-10-16] MEDS: Tolterodine ER 2 mg ER24 Capsule PO SCH (09:16)
[2016-10-16] MEDS: Doxycycline Inj 100 MG in Dextrose 5% Minibag Plus 100 ML IV SCH ×2 (09:17→21:00)
[2016-10-16] MEDS ORDERED: Acetaminophen IV 1,000 MG in IV Premix 1 EACH IV ONE (11:00)
--- NOTE | 2016-10-16 11:39 | PCM.CONPHA ---
Subjective Date of Service: Oct 16, 2016 Fall Reason for Pharmacy Consult: Anticoagulation Management Objective Vital Signs Date Time Temp Pulse Resp B/P Pulse Ox O2 Delivery O2 Flow Rate FiO2 10/16/16 09:24 76 10/16/16 07:57 36.6 68 18 162/68 96 Room Air 10/16/16 05:23 36.9 73 20 116/62 100 Nasal Cannula 3.00 10/16/16 00:46 37.0 81 18 139/69 98 Nasal Cannula 3.00 10/15/16 22:59 Supplement Oxygen 10/15/16 20:00 77 10/15/16 18:51 Supplement Oxygen 10/15/16 18:49 36.7 79 18 135/70 95 Nasal Cannula 3.00 10/15/16 18:35 36.7 82 23 140/67 94 Nasal Cannula 2 10/15/16 18:25 83 22 175/85 94 Nasal Cannula 2 10/15/16 18:19 85 23 180/74 94 Nasal Cannula 2 10/15/16 18:19 Simple Mask 10/15/16 18:05 82 13 185/90 98 Simple Mask 8 10/15/16 17:51 84 17 125/58 98 Simple Mask 8 10/15/16 17:44 76 15 132/55 98 Simple Mask 8 10/15/16 17:39 36.3 76 22 130/53 98 Simple Mask 8 10/15/16 12:45 36.9 89 18 137/65 97 Nasal Cannula 3.00 Intake and Output 10/14/16 10/15/16 10/16/16 00:00 00:00 00:00 Intake Total 150 ml 1241 ml 2154 ml Output Total 850 ml 600 ml 910 ml Balance -700 ml 641 ml 1244 ml Weight (Kilograms): 86.700 Height (Feet): 6 Height (Inches): 0.00 Test 10/13/16 07:45 10/14/16 05:58 10/15/16 00:15 10/15/16 00:45 Hold Keyes Top Tube Received (Received) Troponin T 0.010ug/L (0.0-0.011) Pro-B-Type Natriuretic Peptide 889.8pg/mL (0-486) Urine Legionella pneumophilia Ag Negative (Negative) Activated Partial Thromboplast Time 111.1sec (22.8-33.0) Test 10/15/16 05:15 10/15/16 12:40 10/16/16 05:10 Procalcitonin 1.93ng/mL (0.00-0.08) Urine Color Yellow (YELLOW) Urine Appearance Hazy (CLEAR,HAZY) Urine pH 5.5 (5.0-8.0) Urine Specific [place] 1.025 (1.003-1.035) Urine Protein 30mg/dL (NEG,TRACE) Urine Glucose (UA) Negativemg/dL (NEGATIVE) Urine Ketones Negativemg/dL (NEGATIVE) Urine Occult Blood Moderate (NEGATIVE) Urine Nitrite Negative (NEGATIVE) Urine Bilirubin Negative (NEGATIVE) Urine Urobilinogen Normalmg/dL (NORMAL) Urine Leukocyte Esterase Small (NEGATIVE) Urine RBC 11-50/hpf (0-2) Urine WBC 11-50/hpf (0-5) Urine Epithelial Cells Occasional/hpf (NONE-MOD) Urine Crystals None seen (NONE SEEN) Urine Bacteria Moderate/hpf (NONE-FEW) Urine Hyaline Casts None/lpf (NONE) Urine Granular Casts None seen (NONE SEEN) Urine Waxy Casts None seen (NONE SEEN) Urine Red Blood Cell Casts None seen (NONE SEEN) Urine White Blood Cell Casts None seen (NONE SEEN) Urine Mucus Present (None Seen) Urine Trichomonas None seen (NONE SEEN) Urine Yeast None (NONE SEEN) Urinalysis Comment None Urine Culture Reflexed Indicated White Blood Count 12.4th/mm3 (3.8-10.1) Red Blood Count 2.71mil/mm3 (4.40-5.80) Hemoglobin 8.1g/dL (13.8-17.2) Hematocrit 25.4% (41.0-50.0) Mean Corpuscular Volume 93.7fL (81-100) Mean Corpuscular Hemoglobin 29.9pg (27.0-35.0) Mean Corpuscular Hemoglobin Concent 31.9% (32.0-37.0) Red Cell Distribution Width 13.8% (12.3-15.4) Platelet Count 132bil/L (150-400) Neutrophils (%) (Auto) 83.6% (40-74) Lymphocytes (%) (Auto) 8.5% (14-46) Monocytes (%) (Auto) 7.6% (4-12) Eosinophils (%) (Auto) 0.1% (0-5) Basophils (%) (Auto) 0% (0-3) Prothrombin Time 11.2sec (8.1-12.5) Prothromb Time International Ratio 1.05ratio Sodium Level 140mEq/L (134-144) Potassium Level 4.9mEq/L (3.5-5.2) Chloride Level 104mEq/L (97-108) Carbon Dioxide Level 23mmol/L (18-29) Blood Urea Nitrogen 43mg/dL (8-27) Creatinine 0.96mg/dL (0.76-1.27) Estimat Glomerular Filtration Rate 79mL/min (>59) Glucose Level 161mg/dL (60-99) Calcium Level 8.5mg/dL (8.5-10.1) Total Bilirubin 0.5mg/dL (0.0-1.2) Aspartate Amino Transf (AST/SGOT) 25U/L (0-50) Alanine Aminotransferase (ALT/SGPT) 11U/L (0-44) Alkaline Phosphatase 43U/L (25-160) Total Protein 5.4g/dL (6.4-8.4) Albumin 3.4g/dL (3.4-5.0) Assessment/Plan Assessment/Plan Warfarin management per pharmacy Indication: atrial fibrillation INR goal: 2-3 Home warfarin dose: 2.5 mg MWF, 3.75 mg all other days of the week (unable to confirm) Pertinent info: - Admitted for hip fracture. Warfarin has been held for surgery. Was on hep drip prior to surg -- has since been discontinued. - Currently anticoagulated with heparin 5000 units SQ Q8. - Started on aspirin 81 mg daily. - INR was reversed with vitamin K 10 mg PO on admit (10/13). Date Oct 14-Oct 15-Oct 16-Sep INR 2.40 1.37 1.25 1.05 INR change 0.32 -0.12 -0.2 Warf Dose held held held 5 mg Unable to confirm home dose. Patient is an unreliable historian. He reported that he fills all prescriptions at [facility] but all 3 [facility] were unable to find record of any prescriptions for him. INR is subtherapeutic and may be resistant due to reversal of INR with vitamin K 10 mg PO on 10/13. Will order bolus dose for this evening. Give warfarin 5 mg PO once this evening at 1700. Serial INRs have been ordered x5. Pharmacy to continue to monitor and dose warfarin daily. Thank you, Rosalind Cordova Pharmacist Rosalind Cordova Oct 16, 2016 11:39
[2016-10-16] MEDS: Heparin 5,000 Unit/mL Inj SUBQ SCH ×2 (12:18→17:19)
--- NOTE | 2016-10-16 15:12 | NUR ---
Gave access and faxed facesheet to [facility] per [employer]
--- NOTE | 2016-10-16 15:36 | NUR ---
Social Work: Readiness for Discharge Data: Pt is on day 3 of hospitalization admitted for hip fracture per H&P. SW met with pt's daughter to confirm SNF choice. [facility] SW faxed [facility]SR to [facility]. SW will continue to follow to complete referral. Assessment: Pt who will benefit from SNF at time of discharge. Plan: Pt will discharge to [facility] SNF at time of discharge. ORION Miller
--- NOTE | 2016-10-16 16:25 | NUR ---
Evaluation completed. Please go to "Notes" then click on "Assessments and Notes" (bottom left corner of screen). Then select appropriate discipline tab on top of screen.
--- NOTE | 2016-10-16 19:04 | NUR ---
Activity/Barron- PT assisted patient to standing at bedside, but he was unable to bear any weight on right foot and needed 2 person max assist to get up. Due to poor mobility and to maintain clean dressing, barron catheter was left in place today. MD aware. Tylenol and Toradol have been effective for pain control.
--- NOTE | 2016-10-16 21:25 | PCM.PNMED ---
Subjective Date of Service Oct 16, 2016 Subjective Patient seen and examined. He is less confused than yesterday. Asking me to turn the lights down. He states that he does not like the food here but otherwise not as cranky as yesterday. He is vented settlement fine. He started working with him. His UA did not really grow any organisms. White count is improved. He states that he had good bowel movements yesterday. No other concerns Exam Vital Signs Vital Sign - Last Date Time Temp Pulse Resp B/P Pulse Ox O2 Delivery O2 Flow Rate FiO2 10/16/16 07:57 36.6 68 18 162/68 96 Room Air 10/16/16 05:23 3.00 Intake and Output 10/15/16 10/15/16 10/16/16 Cumulative From/Thru 15:00 23:00 07:00 10/13/16 06:43 - 10/16/16 06:32 Intake Total 1000 ml 650 ml 882 ml 4427 ml Output Total 260 ml 950 ml 3310 ml Balance 1000 ml 390 ml -68 ml 1117 ml Intake Oral 275 ml 1585 ml IV Total 1000 ml 650 ml 607 ml 2842 ml Output Urine Total 210 ml 950 ml 3260 ml Estimated Blood Loss 50 ml 50 ml # Bowel Movements 0 0 IVs and Medications IV Fluids none Medications Reviewed: Medications were reviewed in detail Lab and Diagnostics Result Diagram: 10/16/16 0510 10/16/16 0510 X-Rays, CTs and MRIs [facility] Diagnostic Imaging Department [place], [place] [id number] Patient Name: SCOTT PEARL MR#: [id number] Location: [facility] [place] Ordering Phys: Ladonna Sánchez DO Date of Service: 10/15/16 1032 PROCEDURE: X-RAY CHEST ONE VIEW ([id number]) INDICATIONS: check for CHF/Infection TECHNIQUE: One view of the chest was acquired. COMPARISON: [facility], CR, XR CHEST 1VW (PORTABLE), 10/14/2016, 4: 47. FINDINGS: Surgical changes and devices: Stable position of left cardiac pacer and median sternotomy wires redemonstrated. Lungs and pleura: No pleural effusions or pneumothorax. Mild cephalization of pulmonary vasculature and perihilar indistinctness suspicious for CHF and not significantly changed. Mediastinum: Mediastinal contours appear normal. Heart size is enlarged. Bones and chest wall: No suspicious bony lesions. Overlying soft tissues appear unremarkable. IMPRESSION: Mild pulmonary edema likely related to CHF similar to prior study. Dictated by: Rohan Gunter RRA Interpreted: Kavon Lira MD on 10/15/2016 at 13 :57 Transcribed by: GERMÁN on 10/15/2016 at 13:57 Approved by: Kavon Lira M.D. on 10/15/2016 at 17:09 [facility] Diagnostic Imaging Department [place], [place] [id number] Patient Name: SCOTT PEARL MR#: [id number] Location: [facility] Ordering Phys: Tanvir Nicholson MD Date of Service: 10/15/16 1745 PROCEDURE: X-RAY RIGHT FEMUR, TWO VIEWS ([id number]) INDICATIONS: POST SURGERY TECHNIQUE: 4 views of the femur were acquired. COMPARISON: [facility], CR, XR FEMUR 2VW RT, 10/13/2016, 10:29. FINDINGS: Bones: 4 views of the right femur demonstrate interval open reduction and internal fixation of a comminuted right femoral intertrochanteric fracture with placement of an intramedullary saskia, distal fixation screw, and proximal telescoping screw. There is improved alignment of the proximal femoral fracture. A right knee prosthesis is redemonstrated. Soft tissues: There are expected overlying postsurgical changes. IMPRESSION: 1. Postsurgical changes status post ORIF of comminuted right femoral intertrochanteric fracture. Dictated by: Vinay Sloan M.D. on 10/15/2016 at 19:00 Approved by: Vinay Sloan M.D. on 10/15/2016 at 19:02 [facility] Diagnostic Imaging Department [place], [place] [id number] Patient Name: SCOTT PEARL MR#: [id number] Location: [facility] Ordering Phys: Brett Luque MD Date of Service: 10/13/16 0507 PROCEDURE: US BILATERAL DUPLEX DOPPLER IMAGING OF THE CAROTIDS ([id number]) INDICATIONS: R carotid bruit TECHNIQUE: Color and pulse Doppler interrogation was performed of both carotid systems, with image documentation and velocity measurements. COMPARISON: None. FINDINGS: All stenosis calculations are based on NASCET criteria. Right side: Brachial blood pressure: 127/67 mm Hg. Common carotid artery peak systolic velocity: 63 cm/sec. Internal carotid artery peak systolic velocity: 38 cm/sec. Internal carotid artery end diastolic velocity: 12 cm/sec. External carotid artery peak systolic velocity: 64 cm/sec. ICA/CCA peak systolic ratio: 0.6. Deluna scale imaging description: Mild calcific and soft plaque Percent internal carotid artery stenosis: Less than 50% stenosis. Vertebral artery: Flow direction is antegrade. Left side: Brachial blood pressure: 150/90 mm Hg. Common carotid artery peak systolic velocity: 125 cm/sec. Internal carotid artery peak systolic velocity: 87 cm/sec. Internal carotid artery end diastolic velocity: 27 cm/sec. External carotid artery peak systolic velocity: 36 cm/sec. ICA/CCA peak systolic ratio: 0.7. Deluna scale imaging description: Mild calcific and soft plaque Percent internal carotid artery stenosis: Less than 50% stenosis. Vertebral artery: Flow direction is antegrade. IMPRESSION: Quality of visualization is somewhat limited by patient body habitus, positioning of the vessels and calcific plaque producing shadowing. A definite high-grade stenosis is not present. Estimated current maximal stenosis is considered to be less than 50% but elective followup MR angiographic imaging may be warranted depending on the clinical status given the suboptimal quality of visualization. Dictated by: Kavon Lira M.D. on 10/13/2016 at 18:45 Approved by: Kavon Lira M.D. on 10/13/2016 at 18:48 [facility] Diagnostic [place] [address] Patient Name: SCOTT PEARL MR#: [id number] Location: [facility] [place] Ordering Phys: German Richardson MD Date of Service: 10/13/16 0939 PROCEDURE: X-RAY RIGHT FEMUR, TWO VIEWS ([id number]) INDICATIONS: trauma TECHNIQUE: 3 views of the femur were acquired. COMPARISON: None. FINDINGS: Bones: Moderately comminuted intertrochanteric right hip fracture but no dislocations. No suspicious bony lesions. Right total knee arthroplasty is partially visualized in the portion included on this study is not disrupted. Soft tissues: No suspicious soft tissue calcifications or masses. IMPRESSION: The comminuted intertrochanteric right hip fracture is in near anatomic alignment of the lesser trochanter is fractured at its base and displaced cephalad to lie medial to the femoral neck. Prior right total knee arthroplasty partially visualized by this study. That device does not appear disrupted. Dictated by: Kavon Lira M.D. on 10/13/2016 at 11:14 Approved by: Kavon Lira M.D. on 10/13/2016 at 11:15 [facility] Diagnostic Imaging Department [place], [place] [id number] Patient Name: SCOTT PEARL MR#: [id number] Location: [facility] Ordering Phys: German Richardson MD Date of Service: 10/13/16 0636 PROCEDURE: X-RAY CHEST ONE VIEW, PORTABLE ([id number]) INDICATIONS: trauma TECHNIQUE: One view of the chest was acquired. COMPARISON: [facility], , CHEST 1VW (PORTABLE), 05/24/2012, 4: 46. [facility], CR, CHEST 2VW, 12/10/2011, 10:06. FINDINGS: Surgical changes and devices: Sternotomy wires, pacemaking device and dual chamber leads stable over time. Lungs and pleura: No pleural effusions or pneumothorax. Lungs are abnormal with a chronic mild interstitial prominence which may reflect a prior smoking history.. Mediastinum: Mediastinal contours appear normal. Heart size is at or just above the upper limits of normal but no acute CHF is suspected. Bones and chest wall: No suspicious bony lesions. Overlying soft tissues appear unremarkable. IMPRESSION: Stable postsurgical change and chronic interstitial prominence, no definite acute disease. Dictated by: Kavon Lira M.D. on 10/13/2016 at 8:21 Approved by: Kavon Lira M.D. on 10/13/2016 at 8:22 [facility] Diagnostic [place] [address] Patient Name: SCOTT PEARL MR#: [id number] Location: [facility] Ordering Phys: German Richardson MD Date of Service: 10/13/16 0636 PROCEDURE: X-RAY PELVIS W/LAT HIP (RT) ([id number]) INDICATIONS: trauma TECHNIQUE: AP pelvis with lateral view(s) of the right hip(s). COMPARISON: [facility], CR, XR PELVIS W LATERAL HIP RT, 05/09/2016 , 13:04. [facility], CR, XR PELVIS W LATERAL HIP RT, 04/11/2016, 11:08. FINDINGS: Bones: No dislocations. Pelvic ring appears intact. No suspicious bony lesions. There is a comminuted intertrochanteric right hip fracture and also a previously present anterior column right obturator ring fracture superiorly in what appears to be a minimally displaced previously present right inferior obturator ring fracture. Prior left hip arthroplasty. Soft tissues: The visualized bowel gas pattern is normal. No suspicious soft tissue calcifications. IMPRESSION: Prior left hip arthroplasty stable, prior obturator ring fractures on the right, new comminuted intertrochanteric right hip fracture. Dictated by: Kavon Lira M.D. on 10/13/2016 at 8:22 Approved by: Kavon Lira M.D. on 10/13/2016 at 8:23 [facility] Diagnostic [place] [address] Patient Name: SCOTT PEARL MR#: [id number] Location: [facility] [place] Ordering Phys: Med Phillip MD Date of Service: 10/14/16 0440 PROCEDURE: X-RAY CHEST ONE VIEW, PORTABLE ([id number]) INDICATIONS: sob TECHNIQUE: One view of the chest was acquired. COMPARISON: [facility], CR, XR CHEST 1VW (PORTABLE), 10/13/2016, 6: 53. FINDINGS: Surgical changes and devices: Status post CABG procedure. Lungs and pleura: No pleural effusions or pneumothorax. Mild cephalization of pulmonary vasculature and perihilar indistinctness suspicious for CHF. Mediastinum: Mediastinal contours appear normal. Heart size is enlarged. Bones and chest wall: No suspicious bony lesions. Overlying soft tissues appear unremarkable. IMPRESSION: Mild cephalization pulmonary vasculature and perihilar indistinctness which in the appropriate clinical setting could represent CHF. Dictated by: Filomena Diaz MD, PhD on 10/14/2016 at 9:24 Approved by: Filomena Diaz MD, PhD on 10/14/2016 at 9:25 [facility] Diagnostic Imaging [place] [address] Patient Name: SCOTT PEARL MR#: [id number] Location: [facility] Ordering Phys: Med Phillip MD Date of Service: 10/14/16 0440 PROCEDURE: X-RAY CHEST ONE VIEW, PORTABLE ([id number]) INDICATIONS: sob TECHNIQUE: One view of the chest was acquired. COMPARISON: [facility], CR, XR CHEST 1VW (PORTABLE), 10/13/2016, 6: 53. FINDINGS: Surgical changes and devices: Status post CABG procedure. Lungs and pleura: No pleural effusions or pneumothorax. Mild cephalization of pulmonary vasculature and perihilar indistinctness suspicious for CHF. Mediastinum: Mediastinal contours appear normal. Heart size is enlarged. Bones and chest wall: No suspicious bony lesions. Overlying soft tissues appear unremarkable. IMPRESSION: Mild cephalization pulmonary vasculature and perihilar indistinctness which in the appropriate clinical setting could represent CHF. Dictated by: Filomena Diaz MD, PhD on 10/14/2016 at 9:24 Approved by: Filomena Diaz MD, PhD on 10/14/2016 at 9:25 Assessment & Plan Right intertrochanteric fracture, secondary to fall, present on admission: -- Consult orthopedics, Dr. Nicholson is aware. She would like for us to consult cardiology for cardiac clearance -- Dr. Childers was a consult ed, he has seen the patient. I ordered a carotid duplex ultrasound, reviewed the echo from July this year. He feels no additional echo is required as patient had no symptoms since his last echo. He also reviewed the cardiac medications and the pacemaker history and last interrogation date. For now he says that we should do patient both beta blockers. We appreciate his recommendations. -- Hold Coumadin, trend INR. INR less than 1.5 today -- Plan to give cardiac medications prior to surgery -- Pain control with morphine when necessary and IV Tylenol -- Discussed the situation with Dr. Nicholson, she is agreeable to performing the surgery tomorrow afternoon in the light of a new concern for respiratory infection, patient's confusion this a.m. she is agreeable to starting heparin drip just for overnight. Asked staff to discontinue the heparin drip at 6 AM -- Patient is started on antibiotics to cover for bronchitis/pneumonia -- Patient is not clinically in CHF regardless of the radiology read. BNP was slightly elevated. 20 mg IV Lasix 1 time is administered -- Patient is scheduled to undergo surgery today, late in the afternoon. Stop heparin drip at 6 AM -- Plan to start heparin drip again 48 hours from today on 10/17. We will consider enoxaparin as alternated to facilitate better physical therapy Respirator infection: -- Mildly elevated temperatures, elevated white count, mild elevation in pro- calcitonin -- Doxycycline IV antibiotic is initiated -- We will order follow-up respiratory panel, urine strep and Legionella: I will reassess her negative, pro-calcitonin is 1.9 today: All these are negative except for calcitonin is standing up -- Repeat chest x-ray in 10/15 showed mild CHF once again -- We will continue to monitor -- May consider discontinuing doxycycline if he continues to be asymptomatic and afebrile Elevated pro-calcitonin, elevated white count: -- Ordered a urine analysis this a.m. as this may be causing his confusion: Positive for bacteria and white cells, leukocyte esterase: He started on ceftriaxone, later discontinued as surgery is putting him on Ancef: Urine culture did not grow any bacteria -- We will follow the cultures , Urine culture did not grow any bacteria . -- Currently no source of infection, is completely asymptomatic Chronic conditions: CAD: Continue home medications gerd: Pantoprazole 20 mg daily Hypertension: Continue meds BPH: Continue meds Hypothyroidism: Continue home meds CODE STATUS: DO NOT RESUSCITATE/DO NOT INTUBATE Alternate decision-maker: Daughter Sherlyn DVT prophylaxis: Subtherapeutic INR, heparin drip Disposition: Possible the second postoperative day 3, pending orthopedic approval, to either home with home care or snf For rehabilitation VTE Prophylaxis: Sub-Q Heparin (Unfractionated) (held this morning) VTE Mechanical Devices: Intermittant Pneumatic CD Resuscitation Status: DNR/DNI:Do Not Resuscitate/Intubate Ladonna Sánchez DO Oct 16, 2016 08:51
[2016-10-17] VITALS (10 sets, daily range): BP systolic 116–163; BP diastolic 53–70; PULSE 58–99; RESP 16–18; O2SAT 94–97
[2016-10-17] MEDS: Heparin 5,000 Unit/mL Inj SUBQ SCH ×2 (00:26→09:30)
[2016-10-17] MEDS: Ketorolac 15 mg/mL Inj IVPUSH PRN (00:30)
--- NOTE | 2016-10-17 00:44 | NUR ---
neuro: pt. disoriented/confused, doesn't understand purpose of IV, barron, call light, goals of physical therapy. pt. states "nobody has told me what they were doing". Attempted to explain and reorient pt.
[2016-10-17 07:13] LABS: BASOPHILS % (AUTO) 0.1 % (0-3); EOSINOPHILS % (AUTO) 0 % (0-5); MONOCYTES % (AUTO) 10.8 % (4-12); Mean Corpuscular Hemoglobin 30.3 pg (27.0-35.0); Mean Corpuscular Volume 94.2 fL (81-100); NEUTROPHILS % (AUTO) 73.1 % (40-74); Platelet Count 136 bil/L (150-400)
--- NOTE | 2016-10-17 07:21 | PCM.PNORTH ---
Subjective Date of Service: Oct 17, 2016 Visit Information: Reason for Visit Hip Fracture Surgery/Surgery Date SYNTHES R HIP LONG NAIL 10/15/16 Post-Op Day # Date of Admission: Oct 13, 2016 at 09:37 Hospital Day # Subjective Foundation awake and alert this morning with head of bed elevated. No complaints of pain at this time. Advised patient we would change his dressing today and proceeded to do this and he participated well with no problems. Encouraged patient to participate with formal physical therapy. Postop General: No Complaints, No Shortness of Breath, No Chest Pain Pain Management: PO, IV Push Objective Exam Objective Patient was alert and communicative and answer questions and follow directions. Patient past comments regarding being hungry and radiate have breakfast. Interoperative dressings were clean dry and intact. Interoperative dressing change to postop [place] dressings. Wounds in good condition. Toe wiggle and sensation intact at right lower extremity distally. Calf soft and nontender. Thigh nontender and mildly indurated at the area of the greater trochanter laterally and anteriorly. No ecchymosis or contusion noted. Bilateral SCDs in place. Guzman in place. Vital Signs and I/O Vital Sign - Last Date Time Temp Pulse Resp B/P Pulse Ox O2 Delivery O2 Flow Rate FiO2 10/17/16 06:00 Supplement Oxygen 10/17/16 04:34 36.9 63 16 136/56 97 10/16/16 05:23 3.00 Intake and Output 10/16/16 10/16/16 10/17/16 Cumulative From/Thru 14:59 22:59 06:59 10/13/16 06:43 - 10/17/16 06:25 Intake Total 1276 ml 400 ml 6103 ml Output Total 1000 ml 1050 ml 5360 ml Balance 276 ml -650 ml 743 ml Intake Oral 840 ml 400 ml 2825 ml IV Total 436 ml 3278 ml Output Urine Total 1000 ml 1050 ml 5310 ml Estimated Blood Loss 50 ml # Bowel Movements 1 0 1 Lab & Micro Results Laboratory Tests Test 10/17/16 06:35 Microbiology 10/15/16 Adenovirus DNA (PCR) - Final, Complete Not Detected 10/15/16 Coronavirus 229E PCR - Final, Complete Not Detected 10/15/16 Coronavirus HKU1 PCR - Final, Complete Not Detected 10/15/16 Coronavirus NL63 PCR - Final, Complete Not Detected 10/15/16 Coronavirus OC43 PCR - Final, Complete Not Detected 10/15/16 Influenza Type A (PCR) - Final, Complete Not Detected 10/15/16 Influenza Type B (PCR) - Final, Complete Not Detected 10/15/16 Human Metapneumovirus (PCR) (JULISA) - Final, Complete Not Detected 10/15/16 Rhinovirus (PCR)(JULISA) - Final, Complete Not Detected 10/15/16 Parainfluenza Virus Type 1 (PCR) - Final, Complete Not Detected 10/15/16 Parainfluenza Virus Type 2 (PCR) - Final, Complete Not Detected 10/15/16 Parainfluenza Virus Type 3 (PCR) - Final, Complete Not Detected 10/15/16 Parainfluenza Virus Type 4 (NAAT) - Final, Complete Not Detected 10/15/16 Respiratory Syncytial Virus (PCR)NC - Final, Complete Not Detected 10/15/16 Chlamydia pneumoniae (PCR) - Final, Complete Not Detected 10/15/16 Mycoplasma pneumoniae DNA Detection - Final, Complete 10/15/16 Urine Culture - Preliminary, Resulted No growth to date Result Diagram: 10/16/1650910/16/16509 General Appearance: Alert, Cooperative, No Acute Distress Extremities: No Compartment Syndrom Noted, Thigh & Calf Soft/Nontender ( anterior lateral thigh is mildly indurated with no ecchymosis or contusion noted.) Postop Sensory Motor: Distal Motor Intact, Movement in Toes, Distal Sensation Intact Activity: Ambulate with PT (partial weightbearing at 50% on right lower extremity using front wheeled walker. Patient may be out of bed to chair.), Bedrest Catheters: Urethral 2 Way Guzman Assessment & Plan Impression Patient is a 86-year-old male who is pleasant and communicative and mildly unaware. He is second day status post right femoral long IM saskia placed on 10/15. Patient has not achieved any gait yet as of this note. Problems: (1) CAD (coronary artery disease) Qualifiers: Coronary Disease-Associated Artery/Lesion type: mo[place]gan artery [place] vs. transplanted heart: mohegan heart Associated angina: without angina Qualified Code: I25.10 - Atherosclerotic heart disease of mohegan coronary artery without angina pectoris Status: Chronic ICD Code: I25.10 (2) Carotid disease, bilateral Status: Chronic ICD Code: I77.9 (3) Paroxysmal atrial fibrillation Status: Chronic ICD Code: I48.0 (4) History of permanent cardiac pacemaker placement Status: Chronic ICD Code: Z95.0 (5) Hypertension Qualifiers: Hypertension type: essential hypertension Qualified Code: I10 - Essential (primary) hypertension Status: Chronic ICD Code: I10 (6) Sick sinus syndrome Status: Chronic ICD Code: I49.5 (7) PAD (peripheral artery disease) Status: Chronic ICD Code: I73.9 Plan Postop day #2 from right hip fracture with right long femoral IM saskia placement on 10/15/[address] Tanvir Nicholson. Partial weightbearing at 50% on the right lower extremity using front wheeled walker. Patient may be out of bed to chair. Continue formal physical therapy for mobility, gait and safety. Continue by mouth pain medication and remove patient away from IV pain medication as soon as possible. Continue heparin 5004 bridging and chronic Coumadin with pharmacy to dose for DVT prophylaxis. Interoperative dressings are changed this morning and wounds are found to be in good condition. Nursing please change right hip dressings as needed once all are loose. Nursing please measure for and fit bilateral thigh-high SORAYA hose as ordered today. Nursing please move patient to by mouth pain medication and away from IV pain medications as soon as possible. Follow-up in 2 weeks at [facility] orthopedic clinic with Dr. Tanvir Nicholson with right two-view femur x-rays on arrival. Orthopedics thanks hospital service for their help in the medical management of this patient. Orthopedics anticipates sign off on this patient on postop day #3 with anticipated discharge to residential facility by hospitalist service when patient is determined to be medically appropriate to do so. VTE Prophylaxis: Sub-Q Heparin (Unfractionated) (held this morning), Theraputic Anticoag with Warfarin Resuscitation Status: DNR/DNI:Do Not Resuscitate/Intubate Shaquille Vazquez PA-C Oct 17, 2016 07:21
--- NOTE | 2016-10-17 08:40 | NUR ---
[facility] [place] can accept with Dr. Patel to follow. ORION Valentin
[2016-10-17] MEDS: Diltiazem CD 120 mg ER24 Capsule PO SCH ×2 (09:29→21:09)
[2016-10-17] MEDS: Tolterodine ER 2 mg ER24 Capsule PO SCH (09:29)
[2016-10-17] MEDS: Doxycycline Inj 100 MG in Dextrose 5% Minibag Plus 100 ML IV SCH (09:30)
--- NOTE | 2016-10-17 10:37 | NUR ---
Social Work-readiness for discharge: Data:EMR Reviewed. Pt is on day 4 of hospitalization for hip fracture per H&P. Pt is not medically stable anticipate 1-2 more days. Pt resides at [facility]. PT has seen pt and recommended SNF placement. Pt has been accepted at [facility] when medically stable. Paperwork and PASRR in the chart. SW will continue to follow. Assessment:pt who would benefit from SNF. Plan:Pt will discharge to [facility] when medically stable. Paperwork and PASRR in the chart. SW will continue to follow. ORION Valentin
--- NOTE | 2016-10-17 12:06 | PCM.PHAPRO ---
Progress Date of Service: Oct 17, 2016 Fall Warfarin management per pharmacy Indication: atrial fibrillation INR goal: 2-3 Home warfarin dose:2.5 mg on //Sat and 3.75 mg on all other days of the week Pertinent info: - Admitted for hip fracture. Warfarin has been held for surgery and restarted yesterday. Was on hep drip prior to surg -- has since been discontinued. - Currently anticoagulated with heparin 5000 units SQ Q8. - Also on aspirin 81 mg daily. - INR was reversed with vitamin K 10 mg PO on admit (10/13). - H+H is trending down (Hct 22.7, Hgb 7.3). Date Oct 14-Oct 15-Oct 16-Oct 17-Sep INR 2.40 1.37 1.25 1.05 1.0 INR change 0.32 -0.12 -0.2 -0.05 Warf Dose held held held 5 mg XXXXX INR is subtherapeutic and may be resistant due to reversal of INR with vitamin K 10 mg PO on 10/13. Will order another bolus dose for this evening. Give warfarin 5 mg PO once this evening at 1700. Pharmacy to continue to monitor and dose warfarin daily. Thank you, Rosalind Cordova Pharmacist Rosalind Cordova Oct 17, 2016 12:06
[2016-10-17] MEDS: 0.9% Sodium Chloride 250 ML IV SCH (12:28)
--- NOTE | 2016-10-17 16:40 | NUR ---
Catheter D/C Catheter removed at 1121. Patient voided spontaneously at 1639 using the urinal with 400 mls output.
--- NOTE | 2016-10-17 18:02 | PCM.PNMED ---
Subjective Date of Service Oct 17, 2016 Subjective The patient is not a cranky more today. He initially thought examiner was a nurse , did not recall the examiner's name R presence . He states he does not like the food here. He states pain is not bothering him. He is tired of getting stuck for blood draws, he was started if he can leave. He is also restless and trying to call his daughter. He did need a unit of transfusion after the surgery. His pro time and Coumadin and heparin subcutaneous prophylactic dose yesterday. Exam Vital Signs Vital Sign - Last Date Time Temp Pulse Resp B/P Pulse Ox O2 Delivery O2 Flow Rate FiO2 10/17/16 15:39 36.8 58 16 151/61 10/17/16 13:00 94 Room Air 10/16/16 05:23 3.00 Intake and Output 10/16/16 10/16/16 10/17/16 Cumulative From/Thru 15:00 23:00 07:00 10/13/16 06:43 - 10/17/16 06:25 Intake Total 1276 ml 400 ml 6103 ml Output Total 1000 ml 1050 ml 5360 ml Balance 276 ml -650 ml 743 ml Intake Oral 840 ml 400 ml 2825 ml IV Total 436 ml 3278 ml Output Urine Total 1000 ml 1050 ml 5310 ml Estimated Blood Loss 50 ml # Bowel Movements 1 0 1 Exam Gen.: He appears somewhat restless, cranky HEENT: Normocephalic, atraumatic Neck: Trachea is midline Respiratory: No obvious increased work of breathing Psych: Negative for mild agitation Neuro: Alert but not oriented to time or date or person IVs and Medications Medications Reviewed: Medications were reviewed in detail Lab and Diagnostics Result Diagram: 10/17/16 1605 10/17/16 0635 X-Rays, CTs and MRIs [facility] Diagnostic [place] [address] Patient Name: SCOTT PEARL MR#: [id number] Location: [facility] [place] Ordering Phys: Ladonna Sánchez DO Date of Service: 10/15/16 1032 PROCEDURE: X-RAY CHEST ONE VIEW ([id number]) INDICATIONS: check for CHF/Infection TECHNIQUE: One view of the chest was acquired. COMPARISON: [facility], CR, XR CHEST 1VW (PORTABLE), 10/14/2016, 4: 47. FINDINGS: Surgical changes and devices: Stable position of left cardiac pacer and median sternotomy wires redemonstrated. Lungs and pleura: No pleural effusions or pneumothorax. Mild cephalization of pulmonary vasculature and perihilar indistinctness suspicious for CHF and not significantly changed. Mediastinum: Mediastinal contours appear normal. Heart size is enlarged. Bones and chest wall: No suspicious bony lesions. Overlying soft tissues appear unremarkable. IMPRESSION: Mild pulmonary edema likely related to CHF similar to prior study. Dictated by: Rohan Gunter RRA Interpreted: Kavon Lira MD on 10/15/2016 at 13 :57 Transcribed by: GERMÁN on 10/15/2016 at 13:57 Approved by: Kavon Lira M.D. on 10/15/2016 at 17:09 [facility] Diagnostic Imaging Department [place], [place] [id number] Patient Name: SCOTT PEARL MR#: [id number] Location: [facility] Ordering Phys: Tanvir Nicholson MD Date of Service: 10/15/161744 PROCEDURE: X-RAY RIGHT FEMUR, TWO VIEWS ([id number]) INDICATIONS: POST SURGERY TECHNIQUE: 4 views of the femur were acquired. COMPARISON: [facility], CR, XR FEMUR 2VW RT, 10/13/2016, 10:29. FINDINGS: Bones: 4 views of the right femur demonstrate interval open reduction and internal fixation of a comminuted right femoral intertrochanteric fracture with placement of an intramedullary [place], distal fixation screw, and proximal telescoping screw. There is improved alignment of the proximal femoral fracture. A right knee prosthesis is redemonstrated. Soft tissues: There are expected overlying postsurgical changes. IMPRESSION: 1. Postsurgical changes status post ORIF of comminuted right femoral intertrochanteric fracture. Dictated by: Vinay Sloan M.D. on 10/15/2016 at 19:00 Approved by: Vinay Sloan M.D. on 10/15/2016 at 19:02 [facility] Diagnostic Imaging Department [place], [place] [id number] Patient Name: SCOTT PEARL MR#: [id number] Location: [facility] Ordering Phys: Brett Luque MD Date of Service: 10/13/16 1543 PROCEDURE: US BILATERAL DUPLEX DOPPLER IMAGING OF THE CAROTIDS ([id number]) INDICATIONS: R carotid bruit TECHNIQUE: Color and pulse Doppler interrogation was performed of both carotid systems, with image documentation and velocity measurements. COMPARISON: None. FINDINGS: All stenosis calculations are based on NASCET criteria. Right side: Brachial blood pressure: 127/67 mm Hg. Common carotid artery peak systolic velocity: 63 cm/sec. Internal carotid artery peak systolic velocity: 38 cm/sec. Internal carotid artery end diastolic velocity: 12 cm/sec. External carotid artery peak systolic velocity: 64 cm/sec. ICA/CCA peak systolic ratio: 0.6. Deluna scale imaging description: Mild calcific and soft plaque Percent internal carotid artery stenosis: Less than 50% stenosis. Vertebral artery: Flow direction is antegrade. Left side: Brachial blood pressure: 150/90 mm Hg. Common carotid artery peak systolic velocity: 125 cm/sec. Internal carotid artery peak systolic velocity: 87 cm/sec. Internal carotid artery end diastolic velocity: 27 cm/sec. External carotid artery peak systolic velocity: 36 cm/sec. ICA/CCA peak systolic ratio: 0.7. Deluna scale imaging description: Mild calcific and soft plaque Percent internal carotid artery stenosis: Less than 50% stenosis. Vertebral artery: Flow direction is antegrade. IMPRESSION: Quality of visualization is somewhat limited by patient body habitus, positioning of the vessels and calcific plaque producing shadowing. A definite high-grade stenosis is not present. Estimated current maximal stenosis is considered to be less than 50% but elective followup MR angiographic imaging may be warranted depending on the clinical status given the suboptimal quality of visualization. Dictated by: Kavon Lira M.D. on 10/13/2016 at 18:45 Approved by: Kavon Lira M.D. on 10/13/2016 at 18:48 [facility] Diagnostic [place] [address] Patient Name: SCOTT PEARL MR#: [id number] Location: [facility] Ordering Phys: German Richardson MD Date of Service: 10/13/16 0939 PROCEDURE: X-RAY RIGHT FEMUR, TWO VIEWS ([id number]) INDICATIONS: trauma TECHNIQUE: 3 views of the femur were acquired. COMPARISON: None. FINDINGS: Bones: Moderately comminuted intertrochanteric right hip fracture but no dislocations. No suspicious bony lesions. Right total knee arthroplasty is partially visualized in the portion included on this study is not disrupted. Soft tissues: No suspicious soft tissue calcifications or masses. IMPRESSION: The comminuted intertrochanteric right hip fracture is in near anatomic alignment of the lesser trochanter is fractured at its base and displaced cephalad to lie medial to the femoral neck. Prior right total knee arthroplasty partially visualized by this study. That device does not appear disrupted. Dictated by: Kavon Lira M.D. on 10/13/2016 at 11:14 Approved by: Kavon Lira M.D. on 10/13/2016 at 11:15 [facility] Diagnostic [place] [address] Patient Name: SCOTT PEARL MR#: [id number] [place] [facility] [place] Ordering Phys: German Richardson MD Date of Service: 10/13/16 0636 PROCEDURE: X-RAY CHEST ONE VIEW, PORTABLE ([id number]) INDICATIONS: trauma TECHNIQUE: One view of the chest was acquired. COMPARISON: [facility], , CHEST 1VW (PORTABLE), 05/24/2012, 4: 46. [facility], , CHEST 2VW, 12/10/2011, 10:06. FINDINGS: Surgical changes and devices: Sternotomy wires, pacemaking device and dual chamber leads stable over time. Lungs and pleura: No pleural effusions or pneumothorax. Lungs are abnormal with a chronic mild interstitial prominence which may reflect a prior smoking history.. Mediastinum: Mediastinal contours appear normal. Heart size is at or just above the upper limits of normal but no acute CHF is suspected. Bones and chest wall: No suspicious bony lesions. Overlying soft tissues appear unremarkable. IMPRESSION: Stable postsurgical change and chronic interstitial prominence, no definite acute disease. Dictated by: Kavon Lira M.D. on 10/13/2016 at 8:21 Approved by: Kavon Lira M.D. on 10/13/2016 at 8:22 [facility] Diagnostic Imaging Department [place], [place] [id number] Patient Name: SCOTT PEARL MR#: [id number] Location: [facility] Ordering Phys: German Richardson MD Date of Service: 10/13/16 0636 PROCEDURE: X-RAY PELVIS W/LAT HIP (RT) ([id number]) INDICATIONS: trauma TECHNIQUE: AP pelvis with lateral view(s) of the right hip(s). COMPARISON: [facility], CR, XR PELVIS W LATERAL HIP RT, 05/09/2016 , 13:04. [facility], CR, XR PELVIS W LATERAL HIP RT, 04/11/2016, 11:08. FINDINGS: Bones: No dislocations. Pelvic ring appears intact. No suspicious bony lesions. There is a comminuted intertrochanteric right hip fracture and also a previously present anterior column right obturator ring fracture superiorly in what appears to be a minimally displaced previously present right inferior obturator ring fracture. Prior left hip arthroplasty. Soft tissues: The visualized bowel gas pattern is normal. No suspicious soft tissue calcifications. IMPRESSION: Prior left hip arthroplasty stable, prior obturator ring fractures on the right, new comminuted intertrochanteric right hip fracture. Dictated by: Kavon Lira M.D. on 10/13/2016 at 8:22 Approved by: Kavon Lira M.D. on 10/13/2016 at 8:23 [facility] Diagnostic [place] [address] Patient Name: SCOTT PEARL MR#: [id number] Location: [facility] Ordering Phys: Med Phillip MD Date of Service: 10/14/16 0440 PROCEDURE: X-RAY CHEST ONE VIEW, PORTABLE ([id number]) INDICATIONS: sob TECHNIQUE: One view of the chest was acquired. COMPARISON: [facility], CR, XR CHEST 1VW (PORTABLE), 10/13/2016, 6: 53. FINDINGS: Surgical changes and devices: Status post CABG procedure. Lungs and pleura: No pleural effusions or pneumothorax. Mild cephalization of pulmonary vasculature and perihilar indistinctness suspicious for CHF. Mediastinum: Mediastinal contours appear normal. Heart size is enlarged. Bones and chest wall: No suspicious bony lesions. Overlying soft tissues appear unremarkable. IMPRESSION: Mild cephalization pulmonary vasculature and perihilar indistinctness which in the appropriate clinical setting could represent CHF. Dictated by: Filomena Diaz MD, PhD on 10/14/2016 at 9:24 Approved by: Filomena Diaz MD, PhD on 10/14/2016 at 9:25 [facility] Diagnostic Imaging Department [facility] [place], [place] [id number] Patient Name: SCOTT PEARL MR#: [id number] Location: [facility] Ordering Phys: Med Phillip MD Date of Service: 10/14/16 0440 PROCEDURE: X-RAY CHEST ONE VIEW, PORTABLE ([id number]) INDICATIONS: sob TECHNIQUE: One view of the chest was acquired. COMPARISON: [facility], CR, XR CHEST 1VW (PORTABLE), 10/13/2016, 6: 53. FINDINGS: Surgical changes and devices: Status post CABG procedure. Lungs and pleura: No pleural effusions or pneumothorax. Mild cephalization of pulmonary vasculature and perihilar indistinctness suspicious for CHF. Mediastinum: Mediastinal contours appear normal. Heart size is enlarged. Bones and chest wall: No suspicious bony lesions. Overlying soft tissues appear unremarkable. IMPRESSION: Mild cephalization pulmonary vasculature and perihilar indistinctness which in the appropriate clinical setting could represent CHF. Dictated by: Filomena Diaz MD, PhD on 10/14/2016 at 9:24 Approved by: Filomena Diaz MD, PhD on 10/14/2016 at 9:25 Assessment & Plan Right intertrochanteric fracture, secondary to fall, present on admission: -- Consult orthopedics, Dr. Nicholson is aware. She would like for us to consult cardiology for cardiac clearance -- Dr. Childers was a consult ed, he has seen the patient. I ordered a carotid duplex ultrasound, reviewed the echo from July this year. He feels no additional echo is required as patient had no symptoms since his last echo. He also reviewed the cardiac medications and the pacemaker history and last interrogation date. For now he says that we should do patient both beta blockers. We appreciate his recommendations. -- Hold Coumadin, trend INR. INR less than 1.5 today -- Plan to give cardiac medications prior to surgery -- Pain control with morphine when necessary and IV Tylenol -- Discussed the situation with Dr. Nicholson, she is agreeable to performing the surgery tomorrow afternoon in the light of a new concern for respiratory infection, patient's confusion this a.m. she is agreeable to starting heparin drip just for overnight. Asked staff to discontinue the heparin drip at 6 AM on the day of surgery -- Patient is started on antibiotics to cover for bronchitis/pneumonia -- Patient is not clinically in CHF regardless of the radiology read. BNP was slightly elevated. 20 mg IV Lasix 1 time is administered 10/14 -- Patient is scheduled to undergo surgery 10/15, late in the afternoon. Stop heparin drip at 6 AM -- Patient is started on 90 mg enoxaparin twice a day, follow-up H&H ordered -- PT/OT has started working with pt, he is cooperating per their notes Respirator infection, Bronchitis: -- Mildly elevated temperatures, elevated white count,elevated pro-calcitonin -- Doxycycline IV antibiotic is initiated -- respiratory panel, urine strep and Legionella: All negative -- Repeat chest x-ray in 10/15 showed mild CHF once again -- We will continue to monitor -- Stop abx after 5-7 days. Elevated pro-calcitonin, elevated white count: -- Ordered a urine analysis this a.m. as this may be causing his confusion: Positive for bacteria and white cells, leukocyte esterase: He started on ceftriaxone, later discontinued as surgery is putting him on Ancef: Urine culture did not grow any bacteria -- We will follow the cultures , Urine culture did not grow any bacteria . -- Currently no source of infection except a bronchitis, is completely asymptomatic --mProcalcitonin now trending down Chronic conditions: CAD: Continue home medications gerd: Pantoprazole 20 mg daily Hypertension: Continue meds BPH: Continue meds Hypothyroidism: Continue home meds CODE STATUS: DO NOT RESUSCITATE/DO NOT INTUBATE Alternate decision-maker: Daughter Sherlyn DVT prophylaxis: Subtherapeutic INR, Enoxaparin 90 mg SQ BID Disposition: pending orthopedic approval, to snf For rehabilitation on POD #3 10/19 VTE Prophylaxis: Sub-Q Heparin (Unfractionated) (held this morning), Theraputic Anticoag with Warfarin VTE Mechanical Devices: Intermittant Pneumatic CD Resuscitation Status: DNR/DNI:Do Not Resuscitate/Intubate Ladonna Sánchez DO Oct 17, 2016 18:02 Ladonna Sánchez DO Oct 17, 2016 18:02 Resuscitation Status: DNR/DNI:Do Not Resuscitate/Intubate Ladonna Sánchez DO Oct 17, 2016 18:02
[2016-10-17] MEDS: Polyethylene Glycol (PEG) 17 Gm Powder PO PRN (18:19)
--- NOTE | 2016-10-17 18:53 | NUR ---
Confusion Pt. had a lab draw this afternoon, then became quite upset, saying that he was tired of all the lab draws and was tired of people poking him. He started acting mildly confused, saying that we were lying to him about his care, and refused afternoon assessment. I sat and explained things to him, then called the daughter who says this is not typical. Notified MD. Will continue to monitor.
[2016-10-18 00:08] VITALS: BP 144/58; PULSE 60; RESP 18; O2SAT 94
[2016-10-18] MEDS ORDERED: Haloperidol 5 mg/mL Inj IVPUSH PRN (00:10)
[2016-10-18 00:20] VITALS: PULSE 66
[2016-10-18] MEDS: Doxycycline Inj 100 MG in Dextrose 5% Minibag Plus 100 ML IV SCH ×2 (00:25→12:25)
--- NOTE | 2016-10-18 00:53 | NUR ---
Refusal of care Patient pleasant and cooperative with care at beginning of shift. Now refusing lab to draw H&H recheck on him. IV Doxycycline antibiotic ordered and patient adamantly refusing. Arms withdrawn and crossed to not allow access to IV site and states, "They'll have to try again some other time. I am not taking an antibiotic, I don't need it." Approached patient a second time and still adamantly refusing IV antibiotic. Addendum: 10/18/16 at 0357 by MG VALENTINE RN Patient increasingly more confused and agitated as shift progresses. Ripped off gown, blankets, and telemetry. Refusing to put anything back on and becoming even more agitated/aggressive when staff attempted to replace. Order received to D/C telemetry from . Patient continuing to refuse to wear gown and ripped off brief in the process, wetting the bed linen. Refusing to have wet bedding changed as well, stating, "its not wet". When three staff members attempted to clean up/change patient, patient became more aggressive and tried to punch and kick at staff members while making verbal threats. Ripped out IV intact to right forearm as well. Threatening to harm staff members and "make them bleed." Order for soft limb restraints received and placed on wrists. Able to replace gown and change brief. Continues to make verbal threats and refusing to have IV replaced at this time. Will wait for patient to become less agitated before attempting to replace IV.
[2016-10-18 05:54] VITALS: BP 180/67; PULSE 64; RESP 17; O2SAT 96
[2016-10-18 06:06] LABS: Mean Corpuscular Hemoglobin 29.9 pg (27.0-35.0)
[2016-10-18 06:40] LABS: INR 1.05 ratio
[2016-10-18] MEDS: 0.9% Sodium Chloride 250 ML IV SCH (08:20)
[2016-10-18] MEDS: Tolterodine ER 2 mg ER24 Capsule PO SCH (09:19)
[2016-10-18] MEDS: Diltiazem CD 120 mg ER24 Capsule PO SCH ×2 (09:26→20:16)
--- NOTE | 2016-10-18 10:56 | PCM.PHAPRO ---
Progress Date of Service: Oct 18, 2016 Fall Warfarin management per pharmacy Indication: atrial fibrillation INR goal: 2-3 Home warfarin dose:2.5 mg on //Sat and 3.75 mg on all other days of the week Pertinent info: - Admitted for hip fracture. - Currently anticoagulated with Lovenox 90 mg Q12. - Also on aspirin 81 mg daily. - INR was reversed with vitamin K 10 mg PO on admit (10/13). Oct 14-Oct 15-Oct 16-Oct 17-Oct 18-Sep INR 2.40 1.37 1.25 1.05 1.0 1.05 INR change 0.32 -0.12 -0.2 -0.05 0.05 Warf Dose held held held 5 mg 5 MG xxxxxx INR is subtherapeutic and may be resistant due to reversal of INR with vitamin K 10 mg PO on 10/13. Will order another bolus dose for this evening. Give warfarin 5 mg PO once this evening at 1700. Pharmacy to continue to monitor and dose warfarin daily. Thank you, Rosalind Cordova Pharmacist Rosalind Cordova Oct 18, 2016 10:56
--- NOTE | 2016-10-18 14:12 | PCM.PNORTH ---
Subjective Date of Service: Oct 18, 2016 Visit Information: Reason for Visit Hip Fracture Surgery/Surgery Date SYNTHES R HIP LONG NAIL 10/15/16 Post-Op Day # Date of Admission: Oct 13, 2016 at 09:37 Hospital Day # Subjective Status post day #3 right hip IM nail. Patient states his pain is doing pretty well. His biggest problem is he feels like something poking him in the middle of his pelvis. States that he feels like he is very constipated as of this morning. He states he took a stool softener which seemed to help a little bit but nothing ended up happening. He would like someone to help him with some sort of suppository or similar to help him use the restroom. Postop General: No Complaints, No Shortness of Breath, No Chest Pain Pain Management: PO, IV Push Objective Exam Objective Patient is alert and oriented 3. Answering questions appropriately. Patient is sitting up in the bed and not in acute distress today. Dressing is clean dry and intact. Calf is soft and nontender. Sensation and pulses intact, patient able to wiggle toes. Vital Signs and I/O Vital Sign - Last Date Time Temp Pulse Resp B/P Pulse Ox O2 Delivery O2 Flow Rate FiO2 10/18/16 11:12 Room Air 10/18/16 05:54 37.0 64 17 180/67 96 10/16/16 05:23 3.00 Intake and Output 10/17/16 10/17/16 10/18/16 Cumulative From/Thru 15:00 23:00 07:00 10/13/16 06:43 - 10/18/16 05:34 Intake Total 1310 ml 200 ml 7613 ml Output Total 400 ml 1400 ml 7160 ml Balance 910 ml -1200 ml 453 ml Intake Oral 600 ml 200 ml 3625 ml IV Total 410 ml 3688 ml Packed Cells 300 ml 300 ml Output Urine Total 400 ml 1400 ml 7110 ml Estimated Blood Loss 50 ml # Bowel Movements 1 Lab & Micro Results Laboratory Tests Test 10/17/16 16:05 10/18/16 05:40 Hemoglobin 8.6g/dL (13.8-17.2) 9.7g/dL (13.8-17.2) Hematocrit 26.6% (41.0-50.0) 29.8% (41.0-50.0) White Blood Count 14.3th/mm3 (3.8-10.1) Red Blood Count 3.24mil/mm3 (4.40-5.80) Mean Corpuscular Volume 92.0fL (81-100) Mean Corpuscular Hemoglobin 29.9pg (27.0-35.0) Mean Corpuscular Hemoglobin Concent 32.6% (32.0-37.0) Red Cell Distribution Width 14.9% (12.3-15.4) Platelet Count 189bil/L (150-400) Prothrombin Time 11.2sec (8.1-12.5) Prothromb Time International Ratio 1.05ratio Sodium Level 141mEq/L (134-144) Potassium Level 4.0mEq/L (3.5-5.2) Chloride Level 103mEq/L (97-108) Carbon Dioxide Level 23mmol/L (18-29) Blood Urea Nitrogen 28mg/dL (8-27) Creatinine 0.67mg/dL (0.76-1.27) Estimat Glomerular Filtration Rate 119mL/min (>59) Glucose Level 112mg/dL (60-99) Calcium Level 8.6mg/dL (8.5-10.1) Microbiology 10/15/16 Adenovirus DNA (PCR) - Final, Complete Not Detected 10/15/16 Coronavirus 229E PCR - Final, Complete Not Detected 10/15/16 Coronavirus HKU1 PCR - Final, Complete Not Detected 10/15/16 Coronavirus NL63 PCR - Final, Complete Not Detected 10/15/16 Coronavirus OC43 PCR - Final, Complete Not Detected 10/15/16 Influenza Type A (PCR) - Final, Complete Not Detected 10/15/16 Influenza Type B (PCR) - Final, Complete Not Detected 10/15/16 Human Metapneumovirus (PCR) (JULISA) - Final, Complete Not Detected 10/15/16 Rhinovirus (PCR)(JULISA) - Final, Complete Not Detected 10/15/16 Parainfluenza Virus Type 1 (PCR) - Final, Complete Not Detected 10/15/16 Parainfluenza Virus Type 2 (PCR) - Final, Complete Not Detected 10/15/16 Parainfluenza Virus Type 3 (PCR) - Final, Complete Not Detected 10/15/16 Parainfluenza Virus Type 4 (NAAT) - Final, Complete Not Detected 10/15/16 Respiratory Syncytial Virus (PCR)AR - Final, Complete Not Detected 10/15/16 Chlamydia pneumoniae (PCR) - Final, Complete Not Detected 10/15/16 Mycoplasma pneumoniae DNA Detection - Final, Complete 10/15/16 Urine Culture - Final, Complete No growth (<1,000 organisms/mL) Result Diagram: 10/18/16 0540 10/18/16 0540 Activity: Ambulate with PT (partial weightbearing at 50% on right lower extremity using front wheeled walker. Patient may be out of bed to chair.), Bedrest Catheters: Urethral 2 Way Guzman Assessment & Plan Impression Status post day #3 right hip IM nail. Patient's pain is well controlled, eating well. Patient however is progressing very slowly with physical therapy. Current recommendation is to SNF. Problems: Plan Patient will continue to work with physical therapy daily for gait training with a wheeled walker, transfer assist as well. Patient will remain 50% weightbearing for 6 weeks. Patient will continue heparin bridging until he reaches therapeutic levels with his chronic Coumadin levels as before surgery. Patient will utilize oral narcotics as in the hospital for pain control. Dressing will be changed today by nursing staff. Recommend dressing changes as needed if saturating from here forward. Preferred to keep this covered while in detention facility until the 2 week appointment when we see the patient. Thank you to the hospitalist group for managing this patient's other conditions. We see that patient became delirious with pain treatment within the last 24 hours. Patient is cleared as soon as today or tomorow for discharge to SNF as soon as cleared medically. Patient is to follow-up at 2 weeks at [facility] as well as 6 weeks following surgery. VTE Prophylaxis: Sub-Q Heparin (Unfractionated) (held this morning), Theraputic Anticoag with Warfarin Resuscitation Status: DNR/DNI:Do Not Resuscitate/Intubate Noel Noel PA-C Oct 18, 2016 14:12
--- NOTE | 2016-10-18 14:23 | PCM.PNMED ---
Subjective Date of Service Oct 18, 2016 Subjective comPlains of constipation, says nurse is bringing him in a suppository. No other complaints. Exam Vital Signs Vital Sign - Last Date Time Temp Pulse Resp B/P Pulse Ox O2 Delivery O2 Flow Rate FiO2 10/18/16 11:12 Room Air 10/18/16 05:54 37.0 64 17 180/67 96 10/16/16 05:23 3.00 Intake and Output 10/17/16 10/17/16 10/18/16 Cumulative From/Thru 15:00 23:00 07:00 10/13/16 06:43 - 10/18/16 05:34 Intake Total 1310 ml 200 ml 7613 ml Output Total 400 ml 1400 ml 7160 ml Balance 910 ml -1200 ml 453 ml Intake Oral 600 ml 200 ml 3625 ml IV Total 410 ml 3688 ml Packed Cells 300 ml 300 ml Output Urine Total 400 ml 1400 ml 7110 ml Estimated Blood Loss 50 ml # Bowel Movements 1 Exam General: Alert, no acute distress Heart: Regular with soft systolic murmur Lungs: Clear Abdomen: Soft, non-tender Extremities: No pedal edema IVs and Medications Medications Reviewed: Medications were reviewed in detail Lab and Diagnostics Result Diagram: 10/18/16 0540 10/18/16 0540 X-Rays, CTs and MRIs [facility] [place] [address] Patient Name: SCOTT PEARL MR#: [id number] Location: [facility] Ordering Phys: Ladonna Sánchez DO Date of Service: 10/15/16 1032 PROCEDURE: X-RAY CHEST ONE VIEW ([id number]) INDICATIONS: check for CHF/Infection TECHNIQUE: One view of the chest was acquired. COMPARISON: [facility], CR, XR CHEST 1VW (PORTABLE), 10/14/2016, 4: 47. FINDINGS: Surgical changes and devices: Stable position of left cardiac pacer and median sternotomy wires redemonstrated. Lungs and pleura: No pleural effusions or pneumothorax. Mild cephalization of pulmonary vasculature and perihilar indistinctness suspicious for CHF and not significantly changed. Mediastinum: Mediastinal contours appear normal. Heart size is enlarged. Bones and chest wall: No suspicious bony lesions. Overlying soft tissues appear unremarkable. IMPRESSION: Mild pulmonary edema likely related to CHF similar to prior study. Dictated by: Rohan Gunter RRA Interpreted: Kavon Lira MD on 10/15/2016 at 13 :57 Transcribed by: GERMÁN on 10/15/2016 at 13:57 Approved by: Kavon Lira M.D. on 10/15/2016 at 17:09 [facility] Diagnostic Imaging Department [place], [place] [id number] Patient Name: SCOTT PEARL MR#: [id number] Location: [facility] Ordering Phys: Tanvir Nicholson MD Date of Service: 10/15/16 1745 PROCEDURE: X-RAY RIGHT FEMUR, TWO VIEWS ([id number]) INDICATIONS: POST SURGERY TECHNIQUE: 4 views of the femur were acquired. COMPARISON: [facility], CR, XR FEMUR 2VW RT, 10/13/2016, 10:29. FINDINGS: Bones: 4 views of the right femur demonstrate interval open reduction and internal fixation of a comminuted right femoral intertrochanteric fracture with placement of an intramedullary saskia, distal fixation screw, and proximal telescoping screw. There is improved alignment of the proximal femoral fracture. A right knee prosthesis is redemonstrated. Soft tissues: There are expected overlying postsurgical changes. IMPRESSION: 1. Postsurgical changes status post ORIF of comminuted right femoral intertrochanteric fracture. Dictated by: Vinay Sloan M.D. on 10/15/2016 at 19:00 Approved by: Vinay Sloan M.D. on 10/15/2016 at 19:02 [facility] Diagnostic Imaging Department [place], [place] [id number] Patient Name: SCOTT PEARL MR#: [id number] Location: [facility] Ordering Phys: Brett Luque MD Date of Service: 10/13/16 1543 PROCEDURE: US BILATERAL DUPLEX DOPPLER IMAGING OF THE CAROTIDS ([id number]) INDICATIONS: R carotid bruit TECHNIQUE: Color and pulse Doppler interrogation was performed of both carotid systems, with image documentation and velocity measurements. COMPARISON: None. FINDINGS: All stenosis calculations are based on NASCET criteria. Right side: Brachial blood pressure: 127/67 mm Hg. Common carotid artery peak systolic velocity: 63 cm/sec. Internal carotid artery peak systolic velocity: 38 cm/sec. Internal carotid artery end diastolic velocity: 12 cm/sec. External carotid artery peak systolic velocity: 64 cm/sec. ICA/CCA peak systolic ratio: 0.6. Deluna scale imaging description: Mild calcific and soft plaque Percent internal carotid artery stenosis: Less than 50% stenosis. Vertebral artery: Flow direction is antegrade. Left side: Brachial blood pressure: 150/90 mm Hg. Common carotid artery peak systolic velocity: 125 cm/sec. Internal carotid artery peak systolic velocity: 87 cm/sec. Internal carotid artery end diastolic velocity: 27 cm/sec. External carotid artery peak systolic velocity: 36 cm/sec. ICA/CCA peak systolic ratio: 0.7. Deluna scale imaging description: Mild calcific and soft plaque Percent internal carotid artery stenosis: Less than 50% stenosis. Vertebral artery: Flow direction is antegrade. IMPRESSION: Quality of visualization is somewhat limited by patient body habitus, positioning of the vessels and calcific plaque producing shadowing. A definite high-grade stenosis is not present. Estimated current maximal stenosis is considered to be less than 50% but elective followup MR angiographic imaging may be warranted depending on the clinical status given the suboptimal quality of visualization. Dictated by: Kavon Lira M.D. on 10/13/2016 at 18:45 Approved by: Kavon Lira M.D. on 10/13/2016 at 18:48 [facility] [place] [address] Patient Name: SCOTT PEARL MR#: [id number] [place] [facility] [place] Phys: German Richardson MD Date of Service: 10/13/16 0939 PROCEDURE: X-RAY RIGHT FEMUR, TWO VIEWS ([id number]) INDICATIONS: trauma TECHNIQUE: 3 views of the femur were acquired. COMPARISON: None. FINDINGS: Bones: Moderately comminuted intertrochanteric right hip fracture but no dislocations. No suspicious bony lesions. Right total knee arthroplasty is partially visualized in the portion included on this study is not disrupted. Soft tissues: No suspicious soft tissue calcifications or masses. IMPRESSION: The comminuted intertrochanteric right hip fracture is in near anatomic alignment of the lesser trochanter is fractured at its base and displaced cephalad to lie medial to the femoral neck. Prior right total knee arthroplasty partially visualized by this study. That device does not appear disrupted. Dictated by: Kavon Lira M.D. on 10/13/2016 at 11:14 Approved by: Kavon Lira M.D. on 10/13/2016 at 11:15 [facility] [place] [address] Patient Name: SCOTT PEARL MR#: [id number] Location: [facility] Ordering Phys: German Richardson MD Date of Service: 10/13/16 0636 PROCEDURE: X-RAY CHEST ONE VIEW, PORTABLE ([id number]) INDICATIONS: trauma TECHNIQUE: One view of the chest was acquired. COMPARISON: [facility], CR, CHEST 1VW (PORTABLE), 05/24/2012, 4: 46. [facility], CR, CHEST 2VW, 12/10/2011, 10:06. FINDINGS: Surgical changes and devices: Sternotomy wires, pacemaking device and dual chamber leads stable over time. Lungs and pleura: No pleural effusions or pneumothorax. Lungs are abnormal with a chronic mild interstitial prominence which may reflect a prior smoking history.. Mediastinum: Mediastinal contours appear normal. Heart size is at or just above the upper limits of normal but no acute CHF is suspected. Bones and chest wall: No suspicious bony lesions. Overlying soft tissues appear unremarkable. IMPRESSION: Stable postsurgical change and chronic interstitial prominence, no definite acute disease. Dictated by: Kavon Lira M.D. on 10/13/2016 at 8:21 Approved by: Kavon Lira M.D. on 10/13/2016 at 8:22 [facility] [place] [address] Patient Name: SCOTT PEARL MR#: [id number] Location: [facility] Ordering Phys: German Richardson MD Date of Service: 10/13/16 0636 PROCEDURE: X-RAY PELVIS W/LAT HIP (RT) ([id number]) INDICATIONS: trauma TECHNIQUE: AP pelvis with lateral view(s) of the right hip(s). COMPARISON: [facility], CR, XR PELVIS W LATERAL HIP RT, 05/09/2016 , 13:04. [facility], CR, XR PELVIS W LATERAL HIP RT, 04/11/2016, 11:08. FINDINGS: Bones: No dislocations. Pelvic ring appears intact. No suspicious bony lesions. There is a comminuted intertrochanteric right hip fracture and also a previously present anterior column right obturator ring fracture superiorly in what appears to be a minimally displaced previously present right inferior obturator ring fracture. Prior left hip arthroplasty. Soft tissues: The visualized bowel gas pattern is normal. No suspicious soft tissue calcifications. IMPRESSION: Prior left hip arthroplasty stable, prior obturator ring fractures on the right, new comminuted intertrochanteric right hip fracture. Dictated by: Kavon Lira M.D. on 10/13/2016 at 8:22 Approved by: Kavon Lira M.D. on 10/13/2016 at 8:23 [facility] Diagnostic Imaging Department [place], [place] [id number] Patient Name: SCOTT PEARL MR#: [id number] Location: [facility] Ordering Phys: Med Phillip MD Date of Service: 10/14/16 0440 PROCEDURE: X-RAY CHEST ONE VIEW, PORTABLE ([id number]) INDICATIONS: sob TECHNIQUE: One view of the chest was acquired. COMPARISON: [facility], CR, XR CHEST 1VW (PORTABLE), 10/13/2016, 6: 53. FINDINGS: Surgical changes and devices: Status post CABG procedure. Lungs and pleura: No pleural effusions or pneumothorax. Mild cephalization of pulmonary vasculature and perihilar indistinctness suspicious for CHF. Mediastinum: Mediastinal contours appear normal. Heart size is enlarged. Bones and chest wall: No suspicious bony lesions. Overlying soft tissues appear unremarkable. IMPRESSION: Mild cephalization pulmonary vasculature and perihilar indistinctness which in the appropriate clinical setting could represent CHF. Dictated by: Filomena Diaz MD, PhD on 10/14/2016 at 9:24 Approved by: Filomena Diaz MD, PhD on 10/14/2016 at 9:25 [facility] Diagnostic Imaging Department [place], [place] [id number] Patient Name: SCOTT PEARL MR#: [id number] Location: [facility] Ordering Phys: Med Phillip MD Date of Service: 10/14/16 0440 PROCEDURE: X-RAY CHEST ONE VIEW, PORTABLE ([id number]) INDICATIONS: sob TECHNIQUE: One view of the chest was acquired. COMPARISON: [facility], CR, XR CHEST 1VW (PORTABLE), 10/13/2016, 6: 53. FINDINGS: Surgical changes and devices: Status post CABG procedure. Lungs and pleura: No pleural effusions or pneumothorax. Mild cephalization of pulmonary vasculature and perihilar indistinctness suspicious for CHF. Mediastinum: Mediastinal contours appear normal. Heart size is enlarged. Bones and chest wall: No suspicious bony lesions. Overlying soft tissues appear unremarkable. IMPRESSION: Mild cephalization pulmonary vasculature and perihilar indistinctness which in the appropriate clinical setting could represent CHF. Dictated by: Filomena Diaz MD, PhD on 10/14/2016 at 9:24 Approved by: Filomena Diaz MD, PhD on 10/14/2016 at 9:25 Assessment & Plan Right intertrochanteric fracture, secondary to fall, present on admission: -- Consult orthopedics, Dr. Nicholson is aware. She requested we consult cardiology for cardiac clearance -- Dr. Childers was a consulted, he has seen the patient. I ordered a carotid duplex ultrasound, reviewed the echo from July this year. He feels no additional echo is required as patient had no symptoms since his last echo. He also reviewed the cardiac medications and the pacemaker history and last interrogation date. For now he says that we should do patient both beta blockers. We appreciate his recommendations. -- Held Coumadin, trend INR. INR less than 1.5 prior to surgery -- cardiac medications given prior to surgery -- Pain control with morphine when necessary and IV Tylenol -- Discussed the situation with Dr. Nicholson 10/14, she is agreeable to performing the surgery tomorrow afternoon in the light of a new concern for respiratory infection, patient's confusion this a.m. she is agreeable to starting heparin drip just for overnight. Asked staff to discontinue the heparin drip at 6 AM on the day of surgery -- Open reduction, internal fixation, comminuted right intertrochanteric- subtrochanteric femoral fracture with a locked intramedullary saskia done 10/15, now POD#3 -- Patient is started on antibiotics to cover for bronchitis/pneumonia -- Patient is not clinically in CHF regardless of the radiology read. BNP was slightly elevated. 20 mg IV Lasix 1 time is administered 10/14 -- Patient is started on 90 mg enoxaparin twice a day, follow-up H&H ordered -- PT/OT has started working with pt, he is cooperating per their notes Chronic A fib -- good rate control -- anticoag management as above, INR 1.05 today so still subtherapeutic and is on full dose lovenox Respirator infection, Bronchitis: -- Mildly elevated temperatures, elevated white count,elevated pro-calcitonin -- Doxycycline IV antibiotic is initiated sasha of 10/15, will change today to oral , akil since he is refusing IV dose -- respiratory panel, urine strep and Legionella: All negative -- Repeat chest x-ray in 10/15 showed mild CHF once again -- We will continue to monitor -- Stop abx after 5-7 days. Elevated pro-calcitonin, elevated white count: -- Ordered a urine analysis this a.m. as this may be causing his confusion: Positive for bacteria and white cells, leukocyte esterase: He started on ceftriaxone, later discontinued as surgery is putting him on Ancef: Urine culture did not grow any bacteria -- We will follow the cultures , Urine culture did not grow any bacteria . -- Currently no source of infection except a bronchitis, is completely asymptomatic --mProcalcitonin now trending down Chronic conditions: CAD: Continue home medications gerd: Pantoprazole 20 mg daily Hypertension: Continue meds BPH: Continue meds Hypothyroidism: Continue home meds CODE STATUS: DO NOT RESUSCITATE/DO NOT INTUBATE Alternate decision-maker: Daughter Sherlyn DVT prophylaxis: Subtherapeutic INR, Enoxaparin 90 mg SQ BID Disposition: anticipate DC to [facility] on 10/19 when he has been off soft restraints for 24 hours Pain Evaluation: Adequate Pain Control VTE Prophylaxis: Sub-Q Heparin (Unfractionated) (held this morning), Theraputic Anticoag with Warfarin VTE Mechanical Devices: Intermittant Pneumatic CD Resuscitation Status: DNR/DNI:Do Not Resuscitate/Intubate Marisa Eddy MD Oct 18, 2016 14:23
[2016-10-18 15:08] VITALS: BP 122/52; PULSE 65; RESP 16; O2SAT 99
--- NOTE | 2016-10-18 16:20 | NUR ---
constipation pt felt constipated, Bisacodyl supp given with small results, had 2 small very hard stools,but he felt better afterwards. He refused laxatives this am. He also refused IV antibiotic, MD aware. He had already removed his own IV site during night worker. He did allow this nurse to give him his Lovenox injection this am. His daughter talked him into it.
[2016-10-18 19:34] VITALS: BP 148/53; PULSE 77; RESP 16; O2SAT 97
[2016-10-19] VITALS (8 sets, daily range): BP systolic 86–172; BP diastolic 46–66; PULSE 88–96; RESP 17–20; O2SAT 96–97
--- NOTE | 2016-10-19 06:12 | NUR ---
Pain/BM Patient stating he has pain to his right hip, but that its "tolerable". Patient agreeable to taking Tylenol PO to help with pain management. Tylenol given with effective results. Suppository given on dayshift for c/o constipation. Patient had 5 BMs throughout the night. Remains incontinent, brief in place.
[2016-10-19 06:43] LABS: INR 1.3 ratio
--- NOTE | 2016-10-19 07:58 | PCM.DC.MED ---
Discharge Summary Date of Service Oct 19, 2016 Dates of Hospitalization Date of Hospital Admission Oct 13, 2016 at 09:37 Date of Discharge: Oct 20, 2016 Providers: Admitting Physician: Ladonna Sánchez DO Primary Care Physician: Quinton Ramos MD Attending Physician: Ladonna Sánchez DO Diagnosis at Time of Discharge Diagnosis at Time of Discharge Right intertrochanteric fracture, secondary to fall, present on admission: Chronic A fib Respirator infection, Bronchitis: Elevated pro-calcitonin, elevated white count: Procedures XRay, CTs & MRIs [facility] [place] [address] Patient Name: SCOTT PEARL MR#: [id number] Location: [facility] Ordering Phys: Ladonna Sánchez DO Date of Service: 10/15/16 1032 PROCEDURE: X-RAY CHEST ONE VIEW ([id number]) INDICATIONS: check for CHF/Infection TECHNIQUE: One view of the chest was acquired. COMPARISON: [facility], CR, XR CHEST 1VW (PORTABLE), 10/14/2016, 4: 47. FINDINGS: Surgical changes and devices: Stable position of left cardiac pacer and median sternotomy wires redemonstrated. Lungs and pleura: No pleural effusions or pneumothorax. Mild cephalization of pulmonary vasculature and perihilar indistinctness suspicious for CHF and not significantly changed. Mediastinum: Mediastinal contours appear normal. Heart size is enlarged. Bones and chest wall: No suspicious bony lesions. Overlying soft tissues appear unremarkable. IMPRESSION: Mild pulmonary edema likely related to CHF similar to prior study. Dictated by: Rohan Gunter [facility] Interpreted: Kavon Lira MD on 10/15/2016 at 13 :57 Transcribed by: GERMÁN on 10/15/2016 at 13:57 Approved by: Kavon Lira M.D. on 10/15/2016 at 17:09 [facility] Diagnostic Imaging Department [place], [place] [id number] Patient Name: SCOTT PEARL MR#: [id number] Location: [facility] Ordering Phys: Tanvir Nicholson MD Date of Service: 10/15/16 1745 PROCEDURE: X-RAY RIGHT FEMUR, TWO VIEWS ([id number]) INDICATIONS: POST SURGERY TECHNIQUE: 4 views of the femur were acquired. COMPARISON: [facility], CR, XR FEMUR 2VW RT, 10/13/2016, 10:29. FINDINGS: Bones: 4 views of the right femur demonstrate interval open reduction and internal fixation of a comminuted right femoral intertrochanteric fracture with placement of an intramedullary saskia, distal fixation screw, and proximal telescoping screw. There is improved alignment of the proximal femoral fracture. A right knee prosthesis is redemonstrated. Soft tissues: There are expected overlying postsurgical changes. IMPRESSION: 1. Postsurgical changes status post ORIF of comminuted right femoral intertrochanteric fracture. Dictated by: Vinay Sloan M.D. on 10/15/2016 at 19:00 Approved by: Vinay Sloan M.D. on 10/15/2016 at 19:02 [facility] [place] [address] Patient Name: SCOTT PEARL MR#: [id number] Location: [facility] Ordering Phys: Brett Luque MD Date of Service: 10/13/16 1543 PROCEDURE: US BILATERAL DUPLEX DOPPLER IMAGING OF THE CAROTIDS ([id number]) INDICATIONS: R carotid bruit TECHNIQUE: Color and pulse Doppler interrogation was performed of both carotid systems, with image documentation and velocity measurements. COMPARISON: None. FINDINGS: All stenosis calculations are based on NASCET criteria. Right side: Brachial blood pressure: 127/67 mm Hg. Common carotid artery peak systolic velocity: 63 cm/sec. Internal carotid artery peak systolic velocity: 38 cm/sec. Internal carotid artery end diastolic velocity: 12 cm/sec. External carotid artery peak systolic velocity: 64 cm/sec. ICA/CCA peak systolic ratio: 0.6. Deluna scale imaging description: Mild calcific and soft plaque Percent internal carotid artery stenosis: Less than 50% stenosis. Vertebral artery: Flow direction is antegrade. Left side: Brachial blood pressure: 150/90 mm Hg. Common carotid artery peak systolic velocity: 125 cm/sec. Internal carotid artery peak systolic velocity: 87 cm/sec. Internal carotid artery end diastolic velocity: 27 cm/sec. External carotid artery peak systolic velocity: 36 cm/sec. ICA/CCA peak systolic ratio: 0.7. Deluna scale imaging description: Mild calcific and soft plaque Percent internal carotid artery stenosis: Less than 50% stenosis. Vertebral artery: Flow direction is antegrade. IMPRESSION: Quality of visualization is somewhat limited by patient body habitus, positioning of the vessels and calcific plaque producing shadowing. A definite high-grade stenosis is not present. Estimated current maximal stenosis is considered to be less than 50% but elective followup MR angiographic imaging may be warranted depending on the clinical status given the suboptimal quality of visualization. Dictated by: Kavon Lira M.D. on 10/13/2016 at 18:45 Approved by: Kavon Lira M.D. on 10/13/2016 at 18:48 [facility] Diagnostic Imaging Department [place], [place] [id number] Patient Name: SCOTT PEARL MR#: [id number] Location: [facility] Ordering Phys: German Richardson MD Date of Service: 10/13/16 0939 PROCEDURE: X-RAY RIGHT FEMUR, TWO VIEWS ([id number]) INDICATIONS: trauma TECHNIQUE: 3 views of the femur were acquired. COMPARISON: None. FINDINGS: Bones: Moderately comminuted intertrochanteric right hip fracture but no dislocations. No suspicious bony lesions. Right total knee arthroplasty is partially visualized in the portion included on this study is not disrupted. Soft tissues: No suspicious soft tissue calcifications or masses. IMPRESSION: The comminuted intertrochanteric right hip fracture is in near anatomic alignment of the lesser trochanter is fractured at its base and displaced cephalad to lie medial to the femoral neck. Prior right total knee arthroplasty partially visualized by this study. That device does not appear disrupted. Dictated by: Kavon Lira M.D. on 10/13/2016 at 11:14 Approved by: Kavon Lira M.D. on 10/13/2016 at 11:15 [facility] Diagnostic Imaging Department [place], [place] [id number] Patient Name: SCOTT PEARL MR#: [id number] Location: [facility] Ordering Phys: German Richardson MD Date of Service: 10/13/16 0636 PROCEDURE: X-RAY CHEST ONE VIEW, PORTABLE ([id number]) INDICATIONS: trauma TECHNIQUE: One view of the chest was acquired. COMPARISON: [facility], CR, CHEST 1VW (PORTABLE), 05/24/2012, 4: 46. [facility], CR, CHEST 2VW, 12/10/2011, 10:06. FINDINGS: Surgical changes and devices: Sternotomy wires, pacemaking device and dual chamber leads stable over time. Lungs and pleura: No pleural effusions or pneumothorax. Lungs are abnormal with a chronic mild interstitial prominence which may reflect a prior smoking history.. Mediastinum: Mediastinal contours appear normal. Heart size is at or just above the upper limits of normal but no acute CHF is suspected. Bones and chest wall: No suspicious bony lesions. Overlying soft tissues appear unremarkable. IMPRESSION: Stable postsurgical change and chronic interstitial prominence, no definite acute disease. Dictated by: Kavon Lira M.D. on 10/13/2016 at 8:21 Approved by: Kavon Lira M.D. on 10/13/2016 at 8:22 [facility] [place] [address] Patient Name: SCOTT PEARL MR#: [id number] Location: [facility] Ordering Phys: German Richardson MD Date of Service: 10/13/16 0636 PROCEDURE: X-RAY PELVIS W/LAT HIP (RT) [id number]) INDICATIONS: trauma TECHNIQUE: AP pelvis with lateral view(s) of the right hip(s). COMPARISON: [facility], CR, XR PELVIS W LATERAL HIP RT, 05/09/2016 , 13:04. [facility], CR, XR PELVIS W LATERAL HIP RT, 04/11/2016, 11:08. FINDINGS: Bones: No dislocations. Pelvic ring appears intact. No suspicious bony lesions. There is a comminuted intertrochanteric right hip fracture and also a previously present anterior column right obturator ring fracture superiorly in what appears to be a minimally displaced previously present right inferior obturator ring fracture. Prior left hip arthroplasty. Soft tissues: The visualized bowel gas pattern is normal. No suspicious soft tissue calcifications. IMPRESSION: Prior left hip arthroplasty stable, prior obturator ring fractures on the right, new comminuted intertrochanteric right hip fracture. Dictated by: Kavon Lira M.D. on 10/13/2016 at 8:22 Approved by: Kavon Lira M.D. on 10/13/2016 at 8:23 [facility] [place] [address] Patient Name: SCOTT PEARL MR#: [id number] Location: [facility] Ordering Phys: Med Phillip MD Date of Service: 10/14/16 0440 PROCEDURE: X-RAY CHEST ONE VIEW, PORTABLE ([id number]) INDICATIONS: sob TECHNIQUE: One view of the chest was acquired. COMPARISON: [facility], CR, XR CHEST 1VW (PORTABLE), 10/13/2016, 6: 53. FINDINGS: Surgical changes and devices: Status post CABG procedure. Lungs and pleura: No pleural effusions or pneumothorax. Mild cephalization of pulmonary vasculature and perihilar indistinctness suspicious for CHF. Mediastinum: Mediastinal contours appear normal. Heart size is enlarged. Bones and chest wall: No suspicious bony lesions. Overlying soft tissues appear unremarkable. IMPRESSION: Mild cephalization pulmonary vasculature and perihilar indistinctness which in the appropriate clinical setting could represent CHF. Dictated by: Filomena Diaz MD, PhD on 10/14/2016 at 9:24 Approved by: Filomena Diaz MD, PhD on 10/14/2016 at 9:25 [facility] Diagnostic Imaging Department [place], [place] [id number] Patient Name: SCOTT PEARL MR#: [id number] Location: [facility] Ordering Phys: Med Phillip MD Date of Service: 10/14/16 0440 PROCEDURE: X-RAY CHEST ONE VIEW, PORTABLE ([id number]) INDICATIONS: sob TECHNIQUE: One view of the chest was acquired. COMPARISON: [facility], CR, XR CHEST 1VW (PORTABLE), 10/13/2016, 6: 53. FINDINGS: Surgical changes and devices: Status post CABG procedure. Lungs and pleura: No pleural effusions or pneumothorax. Mild cephalization of pulmonary vasculature and perihilar indistinctness suspicious for CHF. Mediastinum: Mediastinal contours appear normal. Heart size is enlarged. Bones and chest wall: No suspicious bony lesions. Overlying soft tissues appear unremarkable. IMPRESSION: Mild cephalization pulmonary vasculature and perihilar indistinctness which in the appropriate clinical setting could represent CHF. Dictated by: Filomena Diaz MD, PhD on 10/14/2016 at 9:24 Approved by: Filomena Diaz MD, PhD on 10/14/2016 at 9:25 Brief History 86-year-old Scott Malaga is presenting to the ER after suffering a fall at [facility]. Patient states that he has suffered a fall couple of weeks ago a ground-level fall, went to the ER and subsequently was sent home. He has been walking (uses a walker as needed). This morning as he was trying to go to the bathroom he slipped and fell over a area rug. He states that it is a completely mechanical fall, he did not lose consciousness or blackout. He sees Dr. Crandall in cardiology. He states that the pain was very intense but Dilaudid help in the ER. He denies chest pain and back pain shortness of breath but does endorse some urine frequency, constipation. He denies recent fevers chills and infections. Patient did not eat or take his morning medications. In the ER hemoglobin was 13.5 INR was 2.4 white count was 11.8, he was given vitamin K 10 mg by mouth. Ortho was contacted and Dr. Nicholson is planning on surgery tomorrow or day after. She would like for a cardiology consult, echocardiogram. EKG showed paced rhythm with ST depression in V3. Type and cross was ordered a repeat H&H showed hemoglobin level of 4.8. A chest x-ray showed diffuse interstitial markings x-ray of right hip showed intertrochanteric fracture. Patient is admitted to the hospitalist service with orthopedics consulting. Hospital Course Right intertrochanteric fracture, secondary to fall, present on admission: -- Consulted orthopedics, Dr. Nicholson requested we consult cardiology for cardiac clearance -- Dr. Childers was a consulted, carotid duplex ultrasound done, reviewed the echo from July this year. He feels no additional echo is required as patient had no symptoms since his last echo. He also reviewed the cardiac medications and the pacemaker history and last interrogation date. Recommended continue both beta blockers. -- However it appears Sotalol was not restarted and since orthostatic will not resume yet -- Held Coumadin, trend INR. INR less than 1.5 prior to surgery -- cardiac medications given prior to surgery -- Pain control with morphine when necessary and IV Tylenol -- Discussed the situation with Dr. Nicholson 10/14, she is agreeable to performing the surgery 10/15afternoon in the light of a new concern for respiratory infection, patient's confusion this a.m. she is agreeable to starting heparin drip just for overnight. Asked staff to discontinue the heparin drip at 6 AM on the day of surgery -- Open reduction, internal fixation, comminuted right intertrochanteric- subtrochanteric femoral fracture with a locked intramedullary saskia done 10/15, -- Patient was started on antibiotics to cover for bronchitis/pneumonia -- Patient is not clinically in CHF regardless of the radiology read. BNP was slightly elevated. 20 mg IV Lasix 1 time is administered 10/14 -- Patient is started on 90 mg enoxaparin twice a day until warfarin therapeutic, INR only 1.3 on day of discharge -- PT/OT has started working with pt, he is cooperating per their notes Orthostasis -- Prior to planned discharge yesterday physical therapy was getting him up and he complained of lightheadedness. He was noted to have a systolic blood pressure in the evenings while sitting. His discharge was delayed and he was given 500 mL of normal saline IV. Lisinopril was held. This morning (October 20 ) his sitting blood pressure is 137/66 and he no longer has any lightheadedness. Will proceed with discharge as planned but will decrease his lisinopril from 40 mg twice a day to 20 mg daily. Addendum: Received a call about 1300 because he had become lightheaded during while standing during physical therapy and they sat him down and obtained a blood pressure of 90/47. I think it is okay for him to proceed with transfer to SNF. I will make further medication adjustments by having SNF hold his Diltiazem ER this evening and then tomorrow begin 60 mg BID instead of 120 mg. Chronic A fib -- good rate control -- anticoag management as above, INR 1.3 today so still subtherapeutic and is on full dose lovenox -- However it appears Sotalol was not restarted and since orthostatic will not resume yet Respirator infection, Bronchitis: -- Mildly elevated temperatures, elevated white count,elevated pro-calcitonin -- Doxycycline IV antibiotic is initiated sasha of 10/15, changed 10/18 to oral, akil since he is refusing IV dose -- respiratory panel, urine strep and Legionella: All negative -- Repeat chest x-ray in 10/15 showed mild CHF once again -- Stop abx after 7 days. Elevated pro-calcitonin, elevated white count: -- Ordered a urine analysis this a.m. as this may be causing his confusion: Positive for bacteria and white cells, leukocyte esterase: He started on ceftriaxone, later discontinued as surgery is putting him on Ancef: Urine culture -- Currently no source of infection except a bronchitis, is completely asymptomatic --mProcalcitonin now trending down Chronic conditions: CAD: Continue home medications gerd: Pantoprazole 20 mg daily Hypertension: Continue meds, since orthostatic will decrease Lisinopril dose. Could be increased again as outpt if needed BPH: Continue meds Hypothyroidism: Continue home meds CODE STATUS: DO NOT RESUSCITATE/DO NOT INTUBATE Alternate decision-maker: Charlotte Plata Exam Vital Signs (Last) Date Time Temp Pulse Resp B/P Pulse Ox O2 Delivery O2 Flow Rate FiO2 10/19/16 05:06 36.4 94 18 172/66 97 Room Air 10/16/16 05:23 3.00 Exam General: Alert and calm, wasn't able to tell me he is in hospital but once told him he was he remembers it's for a "leg fracture" Heart: Irregularly irregular Lungs: Clear Abdomen: Soft, non-tender Extremities: No pedal edema Test 10/13/16 07:45 10/14/16 05:58 10/15/16 00:15 10/15/16 00:45 Hold Keyes Top Tube Received (Received) Troponin T 0.010ug/L (0.0-0.011) Pro-B-Type Natriuretic Peptide 889.8pg/mL (0-486) Urine Legionella pneumophilia Ag Negative (Negative) Activated Partial Thromboplast Time 111.1sec (22.8-33.0) Test 10/15/16 12:40 10/17/16 06:35 10/18/16 05:40 10/19/16 05:25 Urine Color Yellow (YELLOW) Urine Appearance Hazy (CLEAR,HAZY) Urine pH 5.5 (5.0-8.0) Urine Specific [place] 1.025 (1.003-1.035) Urine Protein 30mg/dL (NEG,TRACE) Urine Glucose (UA) Negativemg/dL (NEGATIVE) Urine Ketones Negativemg/dL (NEGATIVE) Urine Occult Blood Moderate (NEGATIVE) Urine Nitrite Negative (NEGATIVE) Urine Bilirubin Negative (NEGATIVE) Urine Urobilinogen Normalmg/dL (NORMAL) Urine Leukocyte Esterase Small (NEGATIVE) Urine RBC 11-50/hpf (0-2) Urine WBC 11-50/hpf (0-5) Urine Epithelial Cells Occasional/hpf (NONE-MOD) Urine Crystals None seen (NONE SEEN) Urine Bacteria Moderate/hpf (NONE-FEW) Urine Hyaline Casts None/lpf (NONE) Urine Granular Casts None seen (NONE SEEN) Urine Waxy Casts None seen (NONE SEEN) Urine Red Blood Cell Casts None seen (NONE SEEN) Urine White Blood Cell Casts None seen (NONE SEEN) Urine Mucus Present (None Seen) Urine Trichomonas None seen (NONE SEEN) Urine Yeast None (NONE SEEN) Urinalysis Comment None Urine Culture Reflexed Indicated Neutrophils (%) (Auto) 73.1% (40-74) Lymphocytes (%) (Auto) 15.6% (14-46) Monocytes (%) (Auto) 10.8% (4-12) Eosinophils (%) (Auto) 0% (0-5) Basophils (%) (Auto) 0.1% (0-3) Total Bilirubin 0.6mg/dL (0.0-1.2) Aspartate Amino Transf (AST/SGOT) 30U/L (0-50) Alanine Aminotransferase (ALT/SGPT) 13U/L (0-44) Alkaline Phosphatase 45U/L (25-160) Total Protein 5.4g/dL (6.4-8.4) Albumin 3.2g/dL (3.4-5.0) Procalcitonin 1.24ng/mL (0.00-0.08) White Blood Count 14.3th/mm3 (3.8-10.1) Red Blood Count 3.24mil/mm3 (4.40-5.80) Mean Corpuscular Volume 92.0fL (81-100) Mean Corpuscular Hemoglobin 29.9pg (27.0-35.0) Mean Corpuscular Hemoglobin Concent 32.6% (32.0-37.0) Red Cell Distribution Width 14.9% (12.3-15.4) Platelet Count 189bil/L (150-400) Sodium Level 141mEq/L (134-144) Potassium Level 4.0mEq/L (3.5-5.2) Chloride Level 103mEq/L (97-108) Carbon Dioxide Level 23mmol/L (18-29) Blood Urea Nitrogen 28mg/dL (8-27) Creatinine 0.67mg/dL (0.76-1.27) Estimat Glomerular Filtration Rate 119mL/min (>59) Glucose Level 112mg/dL (60-99) Calcium Level 8.6mg/dL (8.5-10.1) Hemoglobin 10.0g/dL (13.8-17.2) Hematocrit 30.4% (41.0-50.0) Prothrombin Time 14.0sec (8.1-12.5) Prothromb Time International Ratio 1.30ratio Discharge Medications Discharge Medications Aspirin (Aspirin) 81 Mg Tablet 81 MG PO HS (Reported) Diltiazem (Cardizem) 120 Mg Tablet 60 MG PO BID Do not give this evening (10/20) then resume 10/21 (this is a dose lower than his previous) Prescribed by: AMANDA PACK MD Doxycycline Hyclate (Doxycycline Hyclate) 100 Mg Tablet 100 MG PO BID Prescribed by: AMANDA PACK MD Enoxaparin (Lovenox) 100 Mg/Ml Syringe 90 MG SUBQ Q12 Continue until INR has been >= 2.0 for two consecutive days Prescribed by: AMANDA PACK MD Levothyroxine (Levothyroxine) 175 Mcg Tablet 175 MCG PO DAILY (Reported) Lisinopril (Lisinopril) 20 Mg Tablet 20 MG PO DAILY Prescribed by: AMANDA PACK MD Metoprolol Tartrate (Metoprolol Tartrate) 100 Mg Tablet 100 MG PO BID (Reported ) Oxybutynin Chloride ER (Oxybutynin Chloride ER) 10 Mg Tab.er.24 10 MG PO DAILY ( Reported) Polyethylene Glycol 3350 (Polyethylene Glycol 3350) 17 Gm Powd.pack 17 GM PO DAILY (Reported) Rosuvastatin Calcium (Crestor) 20 Mg Tablet 10 MG PO HS (Reported) Ubidecarenone (Co Q-10) 100 Mg Capsule 100 MG PO DAILY (Reported) Warfarin Sodium (Warfarin Sodium) 2.5 Mg Tablet 5 MG PO ,Chou 5 mg today and then as directed by anticoag clinic. If no instructions from them for October 20 and give 5 mg Prescribed by: AMANDA PACK MD As needed Acetaminophen (Acetaminophen) 500 Mg Tablet 500 MG PO Q6H PRN PRN For Pain ( Reported) Amanda Pack MD Oct 19, 2016 07:58
--- NOTE | 2016-10-19 08:06 | PCM.DIMED ---
Discharge Instructions Date of Service Oct 19, 2016 Dates of Hospitalization Oct 13, 2016 at 09:37 Discharge Diagnosis Discharge Diagnosis Right intertrochanteric fracture, secondary to fall, present on admission: Chronic A fib Respirator infection, Bronchitis: Elevated pro-calcitonin, elevated white count: Diet Heart Healthy Activity Other (per ortho) Patient Instructions Follow-up in: 2 weeks (with ortho, and also at 6 weeks) Additional Information INR's should be monitored and warfarin dose adjusted by anticoagulation clinic. Next INR October 20. Marisa Eddy MD Oct 19, 2016 08:06
[2016-10-19] MEDS ORDERED: LOV100 SUBQ (08:12)
[2016-10-19] MEDS ORDERED: DOXY100T2 PO (08:12)
[2016-10-19] MEDS ORDERED: WARF2.5T82 PO (08:12)
[2016-10-19] MEDS: 0.9% Sodium Chloride 250 ML IV SCH (08:13)
[2016-10-19] MEDS: Tolterodine ER 2 mg ER24 Capsule PO SCH (08:36)
[2016-10-19] MEDS: Diltiazem CD 120 mg ER24 Capsule PO SCH ×2 (10:16→20:00)
[2016-10-19] MEDS ORDERED: LISI-567 PO (11:52)
[2016-10-19] MEDS ORDERED: 0.9% Sodium Chloride 500 ML IV ONE (14:05)
--- NOTE | 2016-10-19 14:47 | PCM.PHAPRO ---
Progress Date of Service: Oct 19, 2016 Fall Warfarin management per pharmacy Indication: atrial fibrillation INR goal: 2-3 Home warfarin dose:2.5 mg on //Sat and 3.75 mg on all other days of the week Pertinent info: - Admitted for hip fracture. - Currently anticoagulated with Lovenox 90 mg Q12. - Also on aspirin 81 mg daily. - INR was reversed with vitamin K 10 mg PO on admit (10/13). -Oct 14-Oct 15-Oct 16-Oct 17-Oct 18-Oct 19-Sep INR 2.40 1.37 1.25 1.05 1.0 1.05 1.3 INR change 0.32 -0.12 -0.2 -0.05 0.05 0.25 Warf Dose held held held 5 mg 5 MG 5 MG xxxxxxx INR is subtherapeutic and may be resistant due to reversal of INR with vitamin K 10 mg PO on 10/13. Discharge orders are pending but will order another bolus dose for this evening in case discharge is delayed. Give warfarin 5 mg PO once this evening at 1700. Continue Lovenox for therapeutic anticoagulation until INR is therapeutic. Pharmacy to continue to monitor and dose warfarin daily. Thank you, Rosalind Cordova Pharmacist Rosalind Cordova Oct 19, 2016 14:47
--- NOTE | 2016-10-19 17:40 | NUR ---
Hypotension/Dizziness, Discharge Postponed This morning when Physical Therapy (PT) went to get him up for exercise his blood pressure dropped significantly from laying (103/55) to sitting (86/46). PT decided to not stand him up. Paged Dr. Eddy about 1130 to let her know. She called back and said she would change some of his blood pressure medications and was still planning on discharging him. A little later she requested that his orthostatic blood pressures be checked again and then call her back with the results. At 1330 his laying blood pressure (99/49) and sitting (86/47). By this point he had started complaining of intermittent dizziness even when laying down. Paged her at 1345 with the results and his symptoms. Paged again about 1400 when she did not call back. She called back at 1404 and said the she was going to postpone his discharge until tomorrow, to give him an IV bolus of fluids, and change his blood pressure medications. 500 mls bolus running now. Will re-evaluate blood pressure. No current complaints of dizziness.
--- NOTE | 2016-10-20 03:02 | NUR ---
Pain Patient stating he had no pain at the beginning of shift. Refusing offer for pain medication (Tylenol) at that time. Noted to be restless in bed later on in shift. Patient stating pain "wasn't too bad", but agreed to take Tylenol PO at that time. Noted to be resting with eyes closed upon reassessment.
[2016-10-20 04:28] VITALS: BP 121/68; PULSE 95; RESP 20; O2SAT 98
[2016-10-20 06:22] LABS: INR 1.45 ratio
[2016-10-20] MEDS: Tolterodine ER 2 mg ER24 Capsule PO SCH (09:05)
[2016-10-20] MEDS: Diltiazem CD 120 mg ER24 Capsule PO SCH (09:05)
--- NOTE | 2016-10-20 09:20 | PCM.PNMED ---
Subjective Date of Service Oct 20, 2016 Subjective No complaints, says lightheadedness has resolved. Exam Vital Signs Vital Sign - Last Date Time Temp Pulse Resp B/P Pulse Ox O2 Delivery O2 Flow Rate FiO2 10/20/16 04:28 36.8 95 20 121/68 98 Room Air 10/16/16 05:23 3.00 Intake and Output 10/19/16 10/19/16 10/20/16 Cumulative From/Thru 15:00 23:00 07:00 10/13/16 06:43 - 10/20/16 04:58 Intake Total 1120 ml 700 ml 85266 ml Output Total 8009 ml Balance 1120 ml 700 ml 3609 ml Intake Oral 620 ml 700 ml 6125 ml IV Total 500 ml 5193 ml Packed Cells 300 ml Output Urine Total 7959 ml Estimated Blood Loss 50 ml # Voids 3 2 10 # Bowel Movements 1 1 8 Exam General: Alert, no acute distress Nurse reports sitting blood pressure of 137/66 Heart: Regular Lungs: Clear anteriorly and laterally Abdomen: Soft, non-tender Extremities: No pedal edema IVs and Medications Medications Reviewed: Medications were reviewed in detail Lab and Diagnostics Result Diagram: 10/19/16 0525 10/18/16 0540 X-Rays, CTs and MRIs [facility] [place] [address] Patient Name: SCOTT PEARL MR#: [id number] Location: [facility] Ordering Phys: Ladonna Sánchez DO Date of Service: 10/15/16 1032 PROCEDURE: X-RAY CHEST ONE VIEW ([id number]) INDICATIONS: check for CHF/Infection TECHNIQUE: One view of the chest was acquired. COMPARISON: [facility], CR, XR CHEST 1VW (PORTABLE), 10/14/2016, 4: 47. FINDINGS: Surgical changes and devices: Stable position of left cardiac pacer and median sternotomy wires redemonstrated. Lungs and pleura: No pleural effusions or pneumothorax. Mild cephalization of pulmonary vasculature and perihilar indistinctness suspicious for CHF and not significantly changed. Mediastinum: Mediastinal contours appear normal. Heart size is enlarged. Bones and chest wall: No suspicious bony lesions. Overlying soft tissues appear unremarkable. IMPRESSION: Mild pulmonary edema likely related to CHF similar to prior study. Dictated by: Rohan Gunter [facility] Interpreted: Kavon Lira MD on 10/15/2016 at 13 :57 Transcribed by: GERMÁN on 10/15/2016 at 13:57 Approved by: Kavon Lira M.D. on 10/15/2016 at 17:09 [facility] Diagnostic Imaging Department [place], [place] [id number] Patient Name: SCOTT PEARL MR#: [id number] Location: [facility] Ordering Phys: Tanvir Nicholson MD Date of Service: 10/15/16 1745 PROCEDURE: X-RAY RIGHT FEMUR, TWO VIEWS ([id number]) INDICATIONS: POST SURGERY TECHNIQUE: 4 views of the femur were acquired. COMPARISON: [facility], CR, XR FEMUR 2VW RT, 10/13/2016, 10:29. FINDINGS: Bones: 4 views of the right femur demonstrate interval open reduction and internal fixation of a comminuted right femoral intertrochanteric fracture with placement of an intramedullary saskia, distal fixation screw, and proximal telescoping screw. There is improved alignment of the proximal femoral fracture. A right knee prosthesis is redemonstrated. Soft tissues: There are expected overlying postsurgical changes. IMPRESSION: 1. Postsurgical changes status post ORIF of comminuted right femoral intertrochanteric fracture. Dictated by: Vinay Sloan M.D. on 10/15/2016 at 19:00 Approved by: Vinay Sloan M.D. on 10/15/2016 at 19:02 [facility] Diagnostic Imaging Department [place], [place] [id number] Patient Name: SCOTT PEARL MR#: [id number] Location: [facility] Ordering Phys: Brett Luque MD Date of Service: 10/13/16 1543 PROCEDURE: US BILATERAL DUPLEX DOPPLER IMAGING OF THE CAROTIDS ([id number]) INDICATIONS: R carotid bruit TECHNIQUE: Color and pulse Doppler interrogation was performed of both carotid systems, with image documentation and velocity measurements. COMPARISON: None. FINDINGS: All stenosis calculations are based on NASCET criteria. Right side: Brachial blood pressure: 127/67 mm Hg. Common carotid artery peak systolic velocity: 63 cm/sec. Internal carotid artery peak systolic velocity: 38 cm/sec. Internal carotid artery end diastolic velocity: 12 cm/sec. External carotid artery peak systolic velocity: 64 cm/sec. ICA/CCA peak systolic ratio: 0.6. Deluna scale imaging description: Mild calcific and soft plaque Percent internal carotid artery stenosis: Less than 50% stenosis. Vertebral artery: Flow direction is antegrade. Left side: Brachial blood pressure: 150/90 mm Hg. Common carotid artery peak systolic velocity: 125 cm/sec. Internal carotid artery peak systolic velocity: 87 cm/sec. Internal carotid artery end diastolic velocity: 27 cm/sec. External carotid artery peak systolic velocity: 36 cm/sec. ICA/CCA peak systolic ratio: 0.7. Deluna scale imaging description: Mild calcific and soft plaque Percent internal carotid artery stenosis: Less than 50% stenosis. Vertebral artery: Flow direction is antegrade. IMPRESSION: Quality of visualization is somewhat limited by patient body habitus, positioning of the vessels and calcific plaque producing shadowing. A definite high-grade stenosis is not present. Estimated current maximal stenosis is considered to be less than 50% but elective followup MR angiographic imaging may be warranted depending on the clinical status given the suboptimal quality of visualization. Dictated by: Kavon Lira M.D. on 10/13/2016 at 18:45 Approved by: Kavon Lira M.D. on 10/13/2016 at 18:48 [facility] Diagnostic [place] [address] Patient Name: SCOTT PEARL MR#: [id number] [place] [facility] [place] Phys: German Richardson MD Date of Service: 10/13/16 0939 PROCEDURE: X-RAY RIGHT FEMUR, TWO VIEWS ([id number]) INDICATIONS: trauma TECHNIQUE: 3 views of the femur were acquired. COMPARISON: None. FINDINGS: Bones: Moderately comminuted intertrochanteric right hip fracture but no dislocations. No suspicious bony lesions. Right total knee arthroplasty is partially visualized in the portion included on this study is not disrupted. Soft tissues: No suspicious soft tissue calcifications or masses. IMPRESSION: The comminuted intertrochanteric right hip fracture is in near anatomic alignment of the lesser trochanter is fractured at its base and displaced cephalad to lie medial to the femoral neck. Prior right total knee arthroplasty partially visualized by this study. That device does not appear disrupted. Dictated by: Kavon Lira M.D. on 10/13/2016 at 11:14 Approved by: Kavon Lira M.D. on 10/13/2016 at 11:15 [facility] Diagnostic [place] [address] Patient Name: SCOTT PEARL MR#: [id number] Location: [facility] Ordering Phys: German Richardson MD Date of Service: 10/13/16 0636 PROCEDURE: X-RAY CHEST ONE VIEW, PORTABLE ([id number]) INDICATIONS: trauma TECHNIQUE: One view of the chest was acquired. COMPARISON: [facility], , CHEST 1VW (PORTABLE), 05/24/2012, 4: 46. [facility], CR, CHEST 2VW, 12/10/2011, 10:06. FINDINGS: Surgical changes and devices: Sternotomy wires, pacemaking device and dual chamber leads stable over time. Lungs and pleura: No pleural effusions or pneumothorax. Lungs are abnormal with a chronic mild interstitial prominence which may reflect a prior smoking history.. Mediastinum: Mediastinal contours appear normal. Heart size is at or just above the upper limits of normal but no acute CHF is suspected. Bones and chest wall: No suspicious bony lesions. Overlying soft tissues appear unremarkable. IMPRESSION: Stable postsurgical change and chronic interstitial prominence, no definite acute disease. Dictated by: Kavon Lira M.D. on 10/13/2016 at 8:21 Approved by: Kavon Lira M.D. on 10/13/2016 at 8:22 [facility] Diagnostic [place] [address] Patient Name: SCOTT PEARL MR#: [id number] Location: [facility] Ordering Phys: German Richardson MD Date of Service: 10/13/16 0636 PROCEDURE: X-RAY PELVIS W/LAT HIP (RT) ([id number]) INDICATIONS: trauma TECHNIQUE: AP pelvis with lateral view(s) of the right hip(s). COMPARISON: [facility], CR, XR PELVIS W LATERAL HIP RT, 05/09/2016 , 13:04. [facility], CR, XR PELVIS W LATERAL HIP RT, 04/11/2016, 11:08. FINDINGS: Bones: No dislocations. Pelvic ring appears intact. No suspicious bony lesions. There is a comminuted intertrochanteric right hip fracture and also a previously present anterior column right obturator ring fracture superiorly in what appears to be a minimally displaced previously present right inferior obturator ring fracture. Prior left hip arthroplasty. Soft tissues: The visualized bowel gas pattern is normal. No suspicious soft tissue calcifications. IMPRESSION: Prior left hip arthroplasty stable, prior obturator ring fractures on the right, new comminuted intertrochanteric right hip fracture. Dictated by: Kavon Lira M.D. on 10/13/2016 at 8:22 Approved by: Kavon Lira M.D. on 10/13/2016 at 8:23 [facility] Diagnostic Imaging Department [place], [place] [id number] Patient Name: SCOTT PEARL MR#: [id number] Location: [facility] Ordering Phys: Med Phillip MD Date of Service: 10/14/16 0440 PROCEDURE: X-RAY CHEST ONE VIEW, PORTABLE ([id number]) INDICATIONS: sob TECHNIQUE: One view of the chest was acquired. COMPARISON: [facility], CR, XR CHEST 1VW (PORTABLE), 10/13/2016, 6: 53. FINDINGS: Surgical changes and devices: Status post CABG procedure. Lungs and pleura: No pleural effusions or pneumothorax. Mild cephalization of pulmonary vasculature and perihilar indistinctness suspicious for CHF. Mediastinum: Mediastinal contours appear normal. Heart size is enlarged. Bones and chest wall: No suspicious bony lesions. Overlying soft tissues appear unremarkable. IMPRESSION: Mild cephalization pulmonary vasculature and perihilar indistinctness which in the appropriate clinical setting could represent CHF. Dictated by: Filomena Diaz MD, PhD on 10/14/2016 at 9:24 Approved by: Filomena Diaz MD, PhD on 10/14/2016 at 9:25 [facility] Diagnostic Imaging Department [place], [place] [id number] Patient Name: SCOTT PEARL MR#: [id number] Location: [facility] Ordering Phys: Med Phillip MD Date of Service: 10/14/16 0440 PROCEDURE: X-RAY CHEST ONE VIEW, PORTABLE ([id number]) INDICATIONS: sob TECHNIQUE: One view of the chest was acquired. COMPARISON: [facility], CR, XR CHEST 1VW (PORTABLE), 10/13/2016, 6: 53. FINDINGS: Surgical changes and devices: Status post CABG procedure. Lungs and pleura: No pleural effusions or pneumothorax. Mild cephalization of pulmonary vasculature and perihilar indistinctness suspicious for CHF. Mediastinum: Mediastinal contours appear normal. Heart size is enlarged. Bones and chest wall: No suspicious bony lesions. Overlying soft tissues appear unremarkable. IMPRESSION: Mild cephalization pulmonary vasculature and perihilar indistinctness which in the appropriate clinical setting could represent CHF. Dictated by: Filomena Diaz MD, PhD on 10/14/2016 at 9:24 Approved by: Filomena Diaz MD, PhD on 10/14/2016 at 9:25 Assessment & Plan He was discharged yesterday but then found to have a drop in BP when sitting and complaints of lightheadedness. He was given 500 mL of IV normal saline and his lisinopril was held. This morning his symptoms have resolved and blood pressure is 137/66 while sitting. We will proceed with the discharge as ordered yesterday but we will decrease his lisinopril from 40 mg twice a day to 20 mg daily and will update the discharge summary. Received a call about 1300 because he had become lightheaded during while standing during physical therapy and they sat him down and obtained a blood pressure of 90/47. I think it is okay for him to proceed with transfer to SNF. I will make further medication adjustments by having SNF hold his Diltiazem ER this evening and then tomorrow begin 60 mg BID instead of 120 mg. VTE Prophylaxis: Sub-Q Heparin (Unfractionated) (held this morning), Theraputic Anticoag with Warfarin VTE Mechanical Devices: Intermittant Pneumatic CD Resuscitation Status: DNR/DNI:Do Not Resuscitate/Intubate Marisa Eddy MD Oct 20, 2016 09:20 subtrochanteric femoral fracture with a locked intramedullary saskia done 10/15, -- Patient was started on antibiotics to cover for bronchitis/pneumonia -- Patient is not clinically in CHF regardless of the radiology read. BNP was slightly elevated. 20 mg IV Lasix 1 time is administered 10/14 -- Patient is started on 90 mg enoxaparin twice a day until warfarin therapeutic, INR only 1.3 on day of discharge -- PT/OT has started working with pt, he is cooperating per their notes Chronic A fib -- good rate control -- anticoag management as above, INR 1.3 today so still subtherapeutic and is on full dose lovenox -- However it appears Sotalol was not restarted and since orthostatic will not resume yet Respirator infection, Bronchitis: -- Mildly elevated temperatures, elevated white count,elevated pro-calcitonin -- Doxycycline IV antibiotic is initiated sasha of 10/15, changed 10/18 to oral, akil since he is refusing IV dose -- respiratory panel, urine strep and Legionella: All negative -- Repeat chest x-ray in 10/15 showed mild CHF once again -- Stop abx after 7 days. Elevated pro-calcitonin, elevated white count: -- Ordered a urine analysis this a.m. as this may be causing his confusion: Positive for bacteria and white cells, leukocyte esterase: He started on ceftriaxone, later discontinued as surgery is putting him on Ancef: Urine culture -- Currently no source of infection except a bronchitis, is completely asymptomatic --mProcalcitonin now trending down Chronic conditions: CAD: Continue home medications gerd: Pantoprazole 20 mg daily Hypertension: Continue meds, since orthostatic will decrease Lisinopril dose. Could be increased again as outpt if needed BPH: Continue meds Hypothyroidism: Continue home meds CODE STATUS: DO NOT RESUSCITATE/DO NOT INTUBATE Alternate decision-maker: Daughter Sherlyn VTE Prophylaxis: Sub-Q Heparin (Unfractionated) (held this morning), Theraputic Anticoag with Warfarin VTE Mechanical Devices: Intermittant Pneumatic CD Resuscitation Status: DNR/DNI:Do Not Resuscitate/Intubate Marisa Eddy MD Oct 20, 2016 09:20
[2016-10-20 09:25] VITALS: BP 133/66
--- NOTE | 2016-10-20 11:22 | NUR ---
Social Work-Discharge Data: EMR Reviewed. Pt is on day 7 of hospitalization for hip fracture per H&P. Pt is medically stable for discharge. MARITZA spoke with admissions at [facility] who is agreeable to accepting pt today. SW created packet and faxed orders. [facility] set up transportation via wheelchair van at 1330. SW updated pt and son at bedside regarding discharge plan. MARITZA called Sherlyn and updated her of discharge plan as well. Pt to discharge to [facility] via wheelchair van at 1330, all updated and agreeable to plan. UC, RN, pt/family, and [facility] all updated and agreeable to plan. Assessment: Pt who would benefit from SNF. Plan: Pt to discharge to [facility] via wheelchair van at 1330, all updated and agreeable to plan. UC, RN, pt/family, and [facility] all updated and agreeable to plan. Rebeka Ramírez MSW
[2016-10-20 12:26] VITALS: BP 92/49; PULSE 96; RESP 18; O2SAT 96
[2016-10-20] MEDS ORDERED: DILT120T10 PO (13:11)
--- NOTE | 2016-10-20 14:05 | NUR ---
Discharge Pt discharged at 1400 with [facility] transport in w/c. BP prior to d/c was 90/47. notified and will changed medication dosage for SNF, so that pt can d/c today. New packet printed by case management. Hip and knee dressings changed prior to d/c and pt had Tylenol for pain. Pt is alert to self and place only, DORON, declined to get up and walk with us this AM. IV removed intact, was bleeding, so pressure applied until it stopped. Pt has new brief in place and clean gown. Pt lost left hearing aid on first night in hospital and daughter was given number here and name of system safety manager to call, so that it can be replaced.
== END 2016-10-20 14:00 | DRG 481 ==
LOC: SED 06:22 → EDUNIT# 06:22 → EDBD 06:22 → OSC 09:37
PROVIDERS: ADMIT Family Medicine; ATTEND Family Medicine
PROC: 0QS606Z Reposition Right Upper Femur with Intramedullary Internal Fixation Device, Open Approach (ICD-10-PCS; principal; 2016-10-15 14:00)
PROC: 30233N1 Transfusion of Nonautologous Red Blood Cells into Peripheral Vein, Percutaneous Approach (ICD-10-PCS; 2016-10-17)
DX: S72.141A Displaced intertrochanteric fracture of right femur, initial encounter for closed fracture (principal); D62 Acute posthemorrhagic anemia; J40 Bronchitis, not specified as acute or chronic; K21.9 Gastro-esophageal reflux disease without esophagitis; E03.9 Hypothyroidism, unspecified; I25.10 Atherosclerotic heart disease of native coronary artery without angina pectoris; I10 Essential (primary) hypertension; E78.5 Hyperlipidemia, unspecified; E11.9 Type 2 diabetes mellitus without complications; Z86.73 Personal history of transient ischemic attack (TIA), and cerebral infarction without residual deficits; Z79.01 Long term (current) use of anticoagulants; Z95.0 Presence of cardiac pacemaker; I48.0 Paroxysmal atrial fibrillation; W01.0XXA Fall on same level from slipping, tripping and stumbling without subsequent striking against object, initial encounter; Z87.891 Personal history of nicotine dependence; N40.0 Benign prostatic hyperplasia without lower urinary tract symptoms; T40.2X5A Adverse effect of other opioids, initial encounter